=== PATIENT | male | born 1945 | race Caucasian/White ===

== ENCOUNTER 2020-05-14 11:41 | Inpatient (IN) | payer MEDICARE ==
[~2020-05-14] VITALS: Ht 188 cm; Wt 95.7 kg
[2020-05-14 11:45] VITALS: BP 131/74
--- NOTE | 2020-05-14 11:45 | NUR ---
status PT PLACED IN BED WITH BSM ON. PT PLEASANT AT THIS TIME. TWO LAW ENFORCEMENT OFFICERS AT BEDSIDE.
--- NOTE | 2020-05-14 11:54 | ER.PDOC ---
General Chief Complaint: Requesting Medical Care Stated Complaint: MEDICAL CLEARANCE Time seen by MD: 11:47 Source: patient, police, alf records Exam Limitations: clinical condition History of Present Illness Initial Comments Patient arrives from rehab facility where he was recovering from broken hip with report of delusional disorder. He has become very confused during he stay at rehab--so much so that they demanded his stay with him. Furthermore, at night he has become combative and even broke a nurse's finger. 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 He told me on exam that when he showed up for work this morning they told him he needed to go to the doctor to get checked out. He has been accepted to [facility] and requires medical clearance. Timing/Duration: constant, increasing, other (ongoing for weeks) Character of AMS: disoriented, confused, combative, agitated Context: alf resident (has been in a rehab facility s/p hip surgery) Usually: orientedx3 (prior to onset of current sx as above) Decreased Ability to Stand: walks w/o assistance Allergies: Coded Allergies: No Known Drug Allergies (Verified Allergy, Unknown, 05/14/20) Home Meds Reported Medications Docusate Sodium (COLACE) 100 Mg Capsule, 1 CAP PO BID for 30 Days, #60 CAP 0 Refills 05/14/20 Acetaminophen With Codeine (TYLENOL WITH CODEINE #3 TABLET) 1 Each Tablet, 1 EACH PO every 12 hours PRN for PAIN 7 - 10, TAB 05/14/20 Lactulose (LACTULOSE) 10 Gm/15 Ml Solution, 30 MILLILITER PO AM PRN for CONSTIPATION, #900 MILLILITER 0 Refills 05/14/20 Doxazosin Mesylate (DOXAZOSIN MESYLATE) 2 Mg Tablet, 1 MG PO HS, TAB 05/14/20 Atorvastatin 10MG (LIPITOR 10MG) 10 Mg Tablet, 1 TAB PO HS, #90 TAB 1 Refill 05/14/20 Fluoxetine Hcl (FLUOXETINE HCL) 20 Mg Capsule, 1 CAP PO DAILY, #90 CAP 1 Refill 05/14/20 Quetiapine Fumarate (SEROQUEL) 100 Mg Tablet, 1 TAB PO HS, #30 TAB 1 Refill 05/14/20 Doxycycline Hyclate (DOXYCYCLINE HYCLATE) 100 Mg Capsule, 100 MG PO DAILY@0900, CAPSULE 05/14/20 Cholecalciferol (Vitamin D3) (Vitamin D3) 125 Mcg (5000 Unit) Capsule, 5000 TAB- CAP PO DAILY@0900 05/14/20 Ascorbic Acid (VITAMIN C) 500 Mg Capsule.er, 4 CAP PO QD for 30 Days, #30 CAP 0 Refills 05/14/20 Losartan Potassium (LOSARTAN POTASSIUM) 100 Mg Tablet, 1 TAB PO DAILY, #30 TAB 5 Refills 05/14/20 Ubidecarenone (CO Q-10) 200 Mg Capsule, 100 MG PO daily@0900, CAPSULE 05/14/20 Clopidogrel Bisulfate (CLOPIDOGREL) 75 Mg Tablet, 1 TAB PO DAILY, #90 TAB 1 Refill 05/14/20 Aspirin (ASPIR 81) 81 Mg Tablet.dr, 81 MG PO DAILY24 05/14/20 Amlodipine Besylate (AMLODIPINE BESYLATE) 5 Mg Tablet, 5 MG PO DAILY24, TAB 05/14/20 Metoprolol Tartrate 25MG (LOPRESSER 25MG) 25 Mg Tablet, 25 MG PO BID for HYPERTENSION, #60 TAB 05/14/20 Buspirone Hcl (BUSPIRONE HCL) 7.5 Mg Tablet, 7.5 MG PO TID, TAB 05/14/20 Review of Systems Constitutional: no symptoms reported Eyes: no symptoms reported Ears, Nose, Mouth, Throat: no symptoms reported Respiratory: no symptoms reported Cardiovascular: no symptoms reported Gastrointestinal: no symptoms reported Musculoskeletal: no symptoms reported Skin: no symptoms reported Psychiatric/Neurological: see HPI Physical Exam General Appearance: alert, no distress HEENT: no apparent trauma, EOM's intact, no nystagmus, PERRL Cranial Nerves: nml as tested Peripheral Exam: motor nml Neck: supple, non-tender Respiratory: no resp distress, breath sounds nml CVS: reg rate & rhythm, heart sounds nml Abdomen: non-tender Skin: color nml, no rash Results/Orders Results/Orders Orders - ANA FALLON DO Cbc With Auto Diff (05/14/20 11:45) Comprehensive Metabolic Panel (05/14/20 11:45) Urinalysis (05/14/20 11:45) Thyroid Stimulating Horm(Ml) (05/14/20 11:45) Drug Scrn Med W Confirmation (05/14/20 11:45) Vitamin D, 25 Hydroxy (05/14/20 11:45) RPR (05/14/20 11:45) Hemoglobin A1c(Ml) (05/14/20 11:45) Lipid Panel(Ml) (05/14/20 11:45) Troponin I (05/14/20 11:45) Creatine Kinase (05/14/20 11:45) Creatine Kinase Mb (05/14/20 11:45) Probnp B-Type Sample Card Maker (05/14/20 11:45) Alcohol(Ml) (05/14/20 11:45) Acetaminophen(Ml) (05/14/20 11:45) Salicylate(Ml) (05/14/20 11:45) Ekg-Routine (05/14/20 11:45) Ct Head Wo Contrast (05/14/20 11:45) Xr Chest 1v (05/14/20 11:45) Vital Signs Date Time Temp Pulse Resp B/P (MAP) Pulse Ox O2 Delivery O2 Flow Rate FiO2 05/14/20 11:45 98.9 62 16 131/74 (93) 95 Room Air 05/14/20 11:45 98.9 62 20 95 05/14/20 11:45 98.9 62 16 Laboratory Tests Test 05/14/20 12:01 05/14/20 12:15 White Blood Count 7.7 10^3/uL (4.5-11.0) Red Blood Count 4.03 10^6/uL (4.50-5.90) L Hemoglobin 11.9 g/dL (13.9-16.3) L Hematocrit 38.2 % (37.0-53.0) Mean Corpuscular Volume 94.8 fL (78-100) Mean Corpuscular Hemoglobin 29.5 pg (26-34) Mean Corpuscular Hemoglobin Concent 31.2 g/dL (33-36.5) L Red Cell Distribution Width 14.3 % (11.5-14.5) Platelet Count 200 10^3/uL (150-400) Mean Platelet Volume 9.4 fL (7.8-11.0) Neutrophils (%) (Auto) 73.7 % (41.0-85.0) Lymphocytes (%) (Auto) 15.0 % (24.0-44.0) L Monocytes (%) (Auto) 7.7 % (5.0-12.0) Neutrophils # (Auto) 5.6 10^3/uL (1.8-7.7) Lymphocytes # (Auto) 1.15 10^3/uL1 (1.0-4.8) Monocytes # (Auto) 0.6 10^3/uL (0.3-0.8) Absolute Immature Granulocyte (auto 0.01 10^3 u/L (0-2) Absolute Eosinophils (auto) 0.2 10^3/uL (0.0-0.2) Immature Granulocytes % 0.10 % (0.00-0.50) Eosinophils % 2.7 % (0.0-5.0) Basophils % 0.8 % (0.0-0.2) H Basophils # 0.1 10^3/uL (0.0-0.1) Sodium Level 139 mmol/L (132-145) Potassium Level 4.1 mmol/L (3.6-5.2) Chloride Level 103.0 mmol/L (96-109) Carbon Dioxide Level 28.3 mmol/L (20.0-32) Anion Gap 11.8 Blood Urea Nitrogen 23 mg/dL (7-18) H Creatinine 1.01 mg/dL (0.59-1.40) Estimated GFR () 86.7 (>/=60) Est GFR (CKD-EPI)(Non-Afr Iraqi) 71.6 (>/=60) BUN/Creatinine Ratio 22.0 Glucose Level 93 mg/dL (70-110) Hemoglobin A1c 4.7 % (0-5.7) Calcium Level 9.0 mg/dL (8.4-10.5) Total Bilirubin 0.6 mg/dL (0.2-1.0) Aspartate Amino Transferase (AST) 20 U/L (0-35) Alanine Aminotransferase (ALT) 17 U/L (12-78) Alkaline Phosphatase 214 U/L (50-136) H Total Creatine Kinase 58 U/L (39-308) Creatine Kinase MB 1.1 ng/mL (0.5-3.6) Troponin I < 0.02 ng/mL (0.00-0.05) Pro-B-Type Natriuretic Peptide 997 pg/mL (0-450) H Total Protein 6.8 g/dL (6.4-8.2) Albumin 3.4 g/dL (3.4-5.0) Globulin 3.4 Triglycerides Level 44 mg/dL (20-200) Cholesterol Level 76 mg/dL (120-240) L LDL Cholesterol, Calculated 39.2 VLDL Cholesterol, Calculated 8.8 HDL Cholesterol 28 mg/dL (32-96) L Cholesterol Ratio (LDL/HDL) 1.4 Cholesterol/HDL Ratio 2.039002 Thyroid Stimulating Hormone (TSH) 2.245 mIU/mL (0.358-3.740) Salicylates Level < 2.8 mg/dL (2.8-20.0) L Acetaminophen Level < 3 ug/mL (10-30) L Serum Alcohol < 3 mg/dL (0-50) Urine Collection Type VOID Urine Color YELLOW (YELLOW) Urine Appearance SLIGHTLY HAZY (CLEAR) H Urine Bilirubin NEGATIVE MG/DL (NEGATIVE) Urine Ketones NEGATIVE (NEGATIVE) Urine Specific [place] 1.025 (1.005-1.035) Urine pH 5.0 (5.0-6.0) Urine Protein NEGATIVE (NEGATIVE) Urine Urobilinogen NEGATIVE (NEGATIVE) Urine Nitrate NEGATIVE (NEGATAIVE) Urine Leukocyte Esterase NEGATIVE (NEGATIVE) Urine Blood NEGATIVE (NEGATIVE) Urine Glucose NORMAL (NEGATIVE) Urine Opiates Screen NEGATIVE (c/o300ng/mL) Urine Methadone Screen NEGATIVE (c/o300ng/mL) Urine Barbiturates Screen NEGATIVE (c/o200ng/mL) Urine Phencyclidine Screen NEGATIVE (c/o 25ng/mL) Ur Amphetamine/Methamphetamine NEGATIVE (tw4575vk/mL) Urine MDMA Screen (Ecstasy) NEGATIVE (c/o300ng/mL) Urine Benzodiazepines Screen NEGATIVE (c/o200ng/mL) Urine Cocaine Metabolite Screen NEGATIVE (c/o300ng/mL) Ur Tetrahydrocannabinol (THC) Scrn NEGATIVE (c/o 50ng/mL) Progress Progress labs [facility]; EOD papers signed/on chart; patient is medically cleared for psychi atric admission/evaluation EKG/XRAY/CT/US EKG Comments: paced XRAY: chest (no acute process) CT Comments: nothing acute Consult/PCP Time Consult/PCP Called: 13:33 Consult/PCP: Dr. Persaud Reason/Comments: left message #2 Time Consult/PCP Called: 13:57 Consult/PCP: Dr. Persaud Reason/Comments: admit to BHU Departure Time of Disposition: 13:33 Disposition: 09 ADMITTED INPATIENT ( BHU) Impression: Primary Impression: Delusional disorder Condition: Stable Referrals: PCP,UNKNOWN (PCP) PRIMARY CARE PROVIDER Duration or Time Spent with Pa: 15 min ANA FALLON DO May 14, 2020 11:54
--- NOTE | 2020-05-14 11:58 | PCM.EKG ---
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
[2020-05-14 12:08] LABS: BASOPHIL # 0.1 10^3/uL (0.0-0.1); BASOPHIL % 0.8 % (0.0-0.2); EOSINOPHIL # 0.2 10^3/uL (0.0-0.2); EOSINOPHIL % 2.7 % (0.0-5.0); LYMPHOCYTES # 1.15 10^3/uL1 (1.0-4.8); MEAN CORP HGB 29.5 pg (26-34); MONOCYTES # 0.6 10^3/uL (0.3-0.8); MONOCYTES % 7.7 % (5.0-12.0); NEUTROPHIL # 5.6 10^3/uL (1.8-7.7); NEUTROPHILS % 73.7 % (41.0-85.0); PLATELET COUNT 200 10^3/uL (150-400); RED CELL DISTRIBUTION WIDTH 14.3 % (11.5-14.5)
--- NOTE | 2020-05-14 12:30 | NUR ---
STATUS PT EATING LUNCH AT BEDSIDE. OFFICERS AT BEDSIDE.
[2020-05-14 12:34] LABS: APPEARANCE,URINE SLIGHTLY HAZY (CLEAR); BILIRUBIN,URINE NEGATIVE (NEGATIVE); UA COLOR YELLOW (YELLOW); UROBILINOGEN,URINE NEGATIVE (NEGATIVE)
[2020-05-14] MEDS ORDERED: DOCU-123 PO (12:43)
[2020-05-14] MEDS ORDERED: ASCO500C PO (12:43)
[2020-05-14] MEDS ORDERED: ASPI-485 PO (12:43)
[2020-05-14] MEDS ORDERED: UBID200C7 PO (12:43)
[2020-05-14] MEDS ORDERED: METO25TA4 PO (12:43)
[2020-05-14] MEDS ORDERED: CHOL500051 PO (12:43)
[2020-05-14] MEDS ORDERED: AMLO5TAB10 PO (12:43)
[2020-05-14] MEDS ORDERED: CLOP75TA PO (12:43)
[2020-05-14] MEDS ORDERED: BUSP7.5T5 PO (12:43)
[2020-05-14] MEDS ORDERED: ACET-685 PO (12:43)
[2020-05-14] MEDS ORDERED: DOXY100C2 PO (12:43)
[2020-05-14] MEDS ORDERED: QUET100T4 PO (12:43)
[2020-05-14] MEDS ORDERED: LOSA100T14 PO (12:43)
[2020-05-14] MEDS ORDERED: DOXA2TAB2 PO (12:43)
[2020-05-14] MEDS ORDERED: LACT10SO29 PO (12:43)
[2020-05-14] MEDS ORDERED: ATOR10TA PO (12:43)
[2020-05-14] MEDS ORDERED: FLUO20CA23 PO (12:43)
[2020-05-14 12:45] LABS: ALANINE AMINOTRANSFERASE(ML) 17 U/L (12-78); ALKALINE PHOSPHATASE 214 U/L (50-136); ASPARTATE AMINO TRANSFERASE 20 U/L (0-35); CARBON DIOXIDE 28.3 mmol/L (20.0-32); CHOLESTEROL 76 mg/dL (120-240); GLUCOSE 93 mg/dL (70-110); HDL CHOLESTEROL 28 mg/dL (32-96)
--- NOTE | 2020-05-14 12:52 | DIREP ---
PROCEDURE:CHEST 1 VIEW COMPARISON:[facility], CR, XRAY CHEST 2 VWS, 06/05/2019, 01:28 PM. INDICATIONS:admit BHU FINDINGS: LUNGS/PLEURA:Low lung volumes. No infiltrate or pleural effusion. CARDIAC:Prominent cardiac silhouette, dual lead pacer and normal pulmonary vascularity. Aortic arch calcifications. MEDIASTINUM:Normal. BONES:Normal. OTHER:No additional findings. CONCLUSION:No acute cardiopulmonary process or significant change. Dictated by: Roxie Cherry MD on 05/14/2020 at 12:49 PM
--- NOTE | 2020-05-14 13:12 | NUR ---
CT AWAITING CT SCANNER TO BE TERMINALLY CLEANED.
--- NOTE | 2020-05-14 13:30 | DIREP ---
PROCEDURE:CT HEAD OR BRAIN W/O CONTRAST COMPARISON:None. INDICATIONS:mental status change TECHNIQUE:CT images were created without intravenous contrast. FINDINGS: VENTRICLES:The ventricles are normal in size and configuration. CEREBRUM:There is an old right frontal lobe infarct. There are low-density changes in the periventricular white matter. CEREBELLUM:Negative. BRAINSTEM:Negative. BASAL CISTERNS:Negative. HEMORRHAGE:No MASS LESION:No ACUTE INFARCT:No SKULL:Normal. SINUSES:There is a round cyst or polyp in the right maxillary sinus. OTHER:None CONCLUSION: 1. No acute abnormalities. 2. Old right frontal lobe infarct. 3. Microvascular ischemic white matter changes. 4. Cyst or polyp in the right maxillary sinus. Dictated by: Hayden Dave M.D. on 05/14/2020 at 01:26 PM
--- NOTE | 2020-05-14 13:57 | NUR ---
TED FALLON ON PHONE WITH DR JEAN
--- NOTE | 2020-05-14 14:11 | NUR ---
[facility] NOTIFIED [facility] THAT PT IS READY TO TRANSFER UP TO UNIT.
--- NOTE | 2020-05-14 14:25 | NUR ---
ADMISSION: /PATIENT ARRIVED ON THE U POST MEDICAL CLEARANCE IN [facility] ER VIA WHEELCHAIR WITH SECURITY AT SIDE. PATIENT HAS BEEN DELUSIONAL AT THE ASSISTED LIVING. HE HAS BEEN ARRESTING PEOPLE AND BEING AGGRESSIVE AND USING FOUL LANGUAGE. TODAY HE IS CALM AND COOPERATIVE PLEASANT. ON 04/30/20 PATIENT HAD LT ORIF HIP. HE HAS TWO SMALL LATERAL INCISIONS AT KNEE AND ABOVE KNEE. THEY ARE HEALED AND WELL APPROX. PHYSICAL THERAPY IS HERE FOR EVAL OT WILL EVAL AND TREAT.PATIENT HAS A HISTORY OF CAD WITH STENT PLACEMENT, PACEMAKER, HTN, CHF, NONSMOKER AND IS . 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 HE WILL NOT BE RETURNING TO THE ASSISTED LIVING AND REHAB UNIT AND POSSIBLE DISCHARGE TO FAMILY HOME OR [facility]. HE IS CONFUSED AND DISORIENTED. HE IS COOPERATIVE BUT DOESN'T WANT TO LISTEN AND CONTINUES TO STAND UP AND TRY AND WALK ALTHOUGH HE IS UNSTEADY WITH POOR BALANCE. DR. JEAN AND DR. BARTHOLOMEW NOTIFIED OF PATIENT ON UNIT AND NEED FOR ORDERS AND ZYPREXA ZYDIS 10 MG PO PRN GIVEN TO PATIENT FOR RESTLESS BEHAVIOR @ APPROX [id number].
--- NOTE | 2020-05-14 14:27 | NUR ---
ADMIT JENAE FROM [facility] HERE TO TAKE PT TO UNIT VIA W/C. REPORT GIVEN BY VALENTÍN BLAKELY.
[2020-05-14 14:56] VITALS: BP 157/88
[2020-05-14] MEDS ORDERED: ZYPREXA ZYDIS ONE (16:29)
[2020-05-14] MEDS: ZYPREXA ZYDIS SL PRN (16:36)
[2020-05-14] MEDS ORDERED: ASPIRIN EC PO SCH (18:00)
[2020-05-14] MEDS ORDERED: NORVASC PO SCH (18:00)
[2020-05-14] MEDS: TYLENOL #3 PO PRN (19:05)
[2020-05-14 20:00] VITALS: BP 154/83
[2020-05-14] MEDS ORDERED: CARDURA ONE (20:11)
[2020-05-14] MEDS: COLACE PO SCH (20:26)
[2020-05-14] MEDS: LIPITOR PO SCH (20:26)
[2020-05-14] MEDS: BUSPAR PO SCH (20:26)
[2020-05-14] MEDS: LOPRESSER PO SCH (20:28)
[2020-05-14] MEDS: CARDURA PO SCH (20:28)
[2020-05-14] MEDS ORDERED: SEROQUEL PO SCH (21:00)
--- NOTE | 2020-05-15 01:43 | NUR ---
PIRP: P- ALTERED THOUGHT PROCESS AND DANGER TO OTHERS I- PROVIDE SAFE AND SUPPORTIVE ENVIRONMENT, PROVIDE 1:1 INTERVENTION ALLOWING PATIENT TO EXPRESS FEELINGS/THOUGHTS, PROVIDE MEDICATION ORDERED, GIVE CLEAR AND SIMPLE INSTRUCTIONS, PROVIDE REALITY ORIENTATION NEEDED R- PATIENT IS VERY PLEASANT AND COOPERATIVE AT TIMES. PATIENT IS ALERT AND ORIENTED TO SELF. PT IS VERY SOCIABLE AND LOVES TO REMINISCE AND CRACK JOKES. PT IS SEATED IN WHEELCHAIR AND IS RESTLESS AND FREQUENTLY ATTEMPTING TO GET OUT OF WHEELCHAIR AND STAND UP BY HIMSELF. PT HAS BEEN MADE A 1:1 AND NEEDS TO BE RE-ORIENTED AND RE-DIRECTED CONSISTENTLY. PT DENIES DEPRESSION AND ANXIETY BUT REPORTS I USED TO BE VERY ANXIOUS BEFORE. PT THINKS HE IS IN [place] AND NOTED TO BE EXPERIENCING DELUSIONS AND HALLUCINATIONS. PER PT REPORT GO GET ME THAT MOUSE OVER THERE! PT DENIES SI/HI. PT SAT IN DAY ROOM AND ATE EVENING SNACK OF FRUIT CUP AND SODA AFTER PROMPTING. PT PARTICIPATED IN GROUPS ACTIVITY AND REPORTED THAT HE USED TO PLAY BASEBALL AND SOME BASKETBALL A LONG TIME AGO BUT HE WAS NOT VERY GOOD AT BASKETBALL. PT TOOK ALL MEDICATIONS ORDERED. PT SOMETIMES UNABLE TO ANSWER QUESTIONS ASKED AND GOES ON HIS OWN TANGENT AND RAMBLES ON ABOUT DIFFERENT THINGS ALTOGETHER. P- WILL CONTINUE WITH CURRENT TREATMENT PLAN
[2020-05-15] MEDS ORDERED: NORVASC PO SCH (09:00)
[2020-05-15 09:22] VITALS: BP 153/78
--- NOTE | 2020-05-15 10:09 | NUR ---
TELEMED PT WAS SEEN BY DR. JONES VIA TELEMEDICINE. RECEIVED ORDERS TO DC SEROQUEL AND START ZYPREXA AT HS, SEE EMR.
--- NOTE | 2020-05-15 10:12 | PCM.HP ---
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 Pt was previously living with , reportedly these behaviors are new; he was having falls at home, which led to hip fracture, which is why he was at rehab facility. Per nursing, since his arrival on the U, he has been sexually inappropriate toward female staff -- mainly inappropriate comments, but did try to kiss staff. Pt slept 9 hrs overnight. Patient seen at bedside, he is laying down, puts his hands on his head with elbows forward obscuring his face -- when asked why he was doing this, patient stated "to hold my head up." He is a poor historian, responds inappropriately to most of my questions. He states he doesn't remember anything that he reportedly did at the rehab facility. He is disoriented to place, time, situation. When asked why he is on the U in [place], he states "because my mother and grandmother are in rehab." He denies feeling depressed, no SI/HI. 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 Review of Systems Other MSE: Gen: Alert, disoriented to place, time, situation, appears stated age, dressed in hospital gown, fair hygiene, poor eye contact Speech: normal rate/volume Mood: "okay" Affect: incongruent, patient laughing to himself Intelligence: unable to ascertain TC: denies SI/HI, reported delusions of 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 a 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 TP: coherent Insight: poor Judgement: poor Allergies: Coded Allergies: No Known Drug Allergies (Verified Allergy, Unknown, 05/14/20) Scheduled Amlodipine Besylate (Amlodipine Besylate), 5 MG PO DAILY24, (Reported) Ascorbic Acid (Vitamin C), 4 CAP PO QD, (Reported) Aspirin (Aspir 81), 81 MG PO DAILY24, (Reported) Atorvastatin 10MG (Lipitor 10MG), 1 TAB PO HS, (Reported) Buspirone Hcl (Buspirone Hcl), 7.5 MG PO TID, (Reported) Cholecalciferol (Vitamin D3) (Vitamin D3), 5,000 TAB-CAP PO DAILY@0900, (Reported) Clopidogrel Bisulfate (Clopidogrel), 1 TAB PO DAILY, (Reported) Docusate Sodium (Colace), 1 CAP PO BID, (Reported) Doxazosin Mesylate (Doxazosin Mesylate), 1 MG PO HS, (Reported) Doxycycline Hyclate (Doxycycline Hyclate), 100 MG PO DAILY@0900, (Reported) Fluoxetine Hcl (Fluoxetine Hcl), 1 CAP PO DAILY, (Reported) Losartan Potassium (Losartan Potassium), 1 TAB PO DAILY, (Reported) Metoprolol Tartrate 25MG (Lopresser 25MG), 25 MG PO BID, (Reported) Quetiapine Fumarate (Seroquel), 1 TAB PO HS, (Reported) Ubidecarenone (Co Q-10), 100 MG PO daily@0900, (Reported) Scheduled PRN Acetaminophen With Codeine (Tylenol With Codeine #3 Tablet), 1 EACH PO every 12 hours PRN for PAIN 7 - 10, (Reported) Lactulose (Lactulose), 30 MILLILITER PO AM PRN for CONSTIPATION, (Reported) VTE VTE Risk Total Score: >5 VTE Risk Score VTE Risk: Score 0-1 = Low Risk (Aggressive mobilization; early ambulation; no VTE prophylaxis required) Score 2: Moderate Risk (Intermittent/Pneumatic Compression Device OR Lovenox/Heparin/Coumadin) Score 3-4: High Risk (Intermittent/Pneumatic Compression Device AND Lovenox/Heparin/Coumadin) Score > or =5: Highest Risk (Intermittent/Pneumatic Compression Device AND Lovenox/Heparin/Coumadin) VTE VTE Present on Admission: No Currently receiving anticoagul: Yes VTE Risk Total Score: >5 Exam Vital Signs Vital Signs Date Time Temp Pulse Resp B/P (MAP) Pulse Ox O2 Delivery O2 Flow Rate FiO2 05/15/20 09:22 97.5 61 18 153/78 (103) 95 Room Air General Appearance: Alert, No acute distress HEENT: Atraumatic Psych/Mental Status: Other (see above MSE) Assessment/Plan Assessment/Plan Assessment/Plan 75 yo M, transferred to [facility] for aggression and delusion that he is 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 Patient is a poor historian, minimally cooperative with interview. Collateral information will be helpful in refining his diagnosis. Differential would include a delusional di sorder, dementia, possible delirium. Will continue to monitor and treat empirically. [place] I: Delusional Disorder [place] III: Dementia Plan 1) Continue Prozac 20mg PO daily for mood 2) Continue Buspar 7.5mg PO TID for anxiety 3) D/C Seroquel 4) Start Zyprexa Zydis 10mg SL QHS for psychosis 5) Continue Zyprexa Zydis 10mg SL/IM Q6hrs PRN psychosis/agitation 6) 1:1 for safety -- aggression, falls 7) Appreciate hospitalist assistance with medical issues MALLIKA JONES MD May 15, 2020 10:12
[2020-05-15] MEDS: VIBRAMYCIN PO SCH (10:13)
[2020-05-15] MEDS: LOPRESSER PO SCH ×2 (10:14→20:08)
[2020-05-15] MEDS: ASPIRIN EC PO SCH (10:14)
[2020-05-15] MEDS: PROZAC PO SCH (10:14)
[2020-05-15] MEDS: COLACE PO SCH ×2 (10:15→20:07)
[2020-05-15] MEDS: VITAMIN C PO SCH (10:15)
[2020-05-15] MEDS: BUSPAR PO SCH ×3 (10:15→20:07)
[2020-05-15] MEDS: VITAMIN D PO SCH (10:15)
[2020-05-15] MEDS: PLAVIX PO SCH (10:15)
[2020-05-15] MEDS: COZAAR PO SCH (10:15)
--- NOTE | 2020-05-15 16:09 | NUR ---
GMAS: PT UNABLE TO COGNITIVELY PARTICIPATE IN ASSESSMENT. PT IS INVOLUNTARY AND ON COURT PAPERS. Addendum: 05/15/20 at 1621 by Kiesha Lopez LMSW SW Amended: Links added.
--- NOTE | 2020-05-15 16:14 | NUR ---
MMSE SCORE 2: FINDINGS INDICATE PT HAS SEVERE IMPAIRMENT. PT WAS UNABLE TO COGNITIVELY PARTICIPATE AND WAS ONLY ORIENTED TO SELF. Addendum: 05/15/20 at 1621 by Kiesha Lopez LMSW SW Amended: Links added.
--- NOTE | 2020-05-15 16:20 | NUR ---
BIOPSYCHOSOCIAL: SW UNABLE TO COMPLETE ENTIRE ASSESSMENT DUE TO PT'S COGNITIVE DECLINE, BUT DID GET A LOT OF THE INFORMATION NEEDED FROM INQUIRY AND PREVIOUS RECORDS. Addendum: 05/15/20 at 1621 by Kiesha MORENO Amended: Links added.
--- NOTE | 2020-05-15 17:06 | PRM.CONS ---
Consultation Reason for Consult: Reason for Consultation: For medical management. History of Present Illness Current and Past HX: (1) Rosacea ICD Code: L71.9 - Rosacea, unspecified SNOMED: 585044970 (2) Dyslipidemia ICD Code: E78.5 - Hyperlipidemia, unspecified SNOMED: 741422267 (3) Coronary artery disease ICD Code: I25.10 - Atherosclerotic heart disease of [place] coronary artery without angina pectoris SNOMED: 09174672 (4) Essential hypertension ICD Code: I10 - Essential (primary) hypertension SNOMED: 60989740 (5) Delusional disorder Status: Acute ICD Code: F22 - Delusional disorders SNOMED: 26143289 Social and Family History: (1) longterm resident ICD Code: Z59.3 - Problems related to living in residential institution SNOMED: 824325680 (2) History of hip surgery ICD Code: Z98.890 - Other specified postprocedural states SNOMED: 349366143 Review of Systems Constitutional: No: Fever, Chills, Sweats, Weakness, Malaise, Other Eyes: No: Pain, Vision change, Conjunctivae inflammation, Eyelid inflammation, Other, Redness ENT: No: Ear pain, Ear discharge, Nose pain, Nose discharge, Nose congestion, Mouth pain, Mouth swelling, Throat pain, Throat swelling, Other Respiratory: No: Cough, Dry, Shortness of breath, SOB with excertion, Wheezing, Hemoptysis, Pleuritic Pain, Sputum, Wheezing, Other Cardiovascular: No: Chest Pain, Palpitations, Orthopnea, Paroxysmal Noc. Dyspnea, Edema, Lt Headedness, Other Gastrointestinal: No: Nausea, Vomiting, Abdominal Pain, Diarrhea, Constipation, Melena, Hematochezia, Other Genitourinary: No Dysuria, No Frequency, No Incontinence, No Hematuria, No Retention, No Other Musculoskeletal: No: other, neck pain, shoulder pain, arm pain, back pain, hand pain, leg pain, foot pain Skin: No: Rash, Lesions, Jaundice, Bruising, Other Neurological: No: Weakness, Numbness, Incoordination, Change in speech, Confusion, Seizures, Other Other Patient is confused and has been having episodes of agitation Allergies: Coded Allergies: No Known Drug Allergies (Verified Allergy, Unknown, 05/14/20) Scheduled Amlodipine Besylate (Amlodipine Besylate), 5 MG PO DAILY24, (Reported) Ascorbic Acid (Vitamin C), 4 CAP PO QD, (Reported) Aspirin (Aspir 81), 81 MG PO DAILY24, (Reported) Atorvastatin 10MG (Lipitor 10MG), 1 TAB PO HS, (Reported) Buspirone Hcl (Buspirone Hcl), 7.5 MG PO TID, (Reported) Cholecalciferol (Vitamin D3) (Vitamin D3), 5,000 TAB-CAP PO DAILY@0900, (Reported) Clopidogrel Bisulfate (Clopidogrel), 1 TAB PO DAILY, (Reported) Docusate Sodium (Colace), 1 CAP PO BID, (Reported) Doxazosin Mesylate (Doxazosin Mesylate), 1 MG PO HS, (Reported) Doxycycline Hyclate (Doxycycline Hyclate), 100 MG PO DAILY@0900, (Reported) Fluoxetine Hcl (Fluoxetine Hcl), 1 CAP PO DAILY, (Reported) Losartan Potassium (Losartan Potassium), 1 TAB PO DAILY, (Reported) Metoprolol Tartrate 25MG (Lopresser 25MG), 25 MG PO BID, (Reported) Quetiapine Fumarate (Seroquel), 1 TAB PO HS, (Reported) Ubidecarenone (Co Q-10), 100 MG PO daily@0900, (Reported) Scheduled PRN Acetaminophen With Codeine (Tylenol With Codeine #3 Tablet), 1 EACH PO every 12 hours PRN for PAIN 7 - 10, (Reported) Lactulose (Lactulose), 30 MILLILITER PO AM PRN for CONSTIPATION, (Reported) VTE VTE Risk Total Score: >5 VTE Risk Score VTE Risk: Score 0-1 = Low Risk (Aggressive mobilization; early ambulation; no VTE prophylaxis required) Score 2: Moderate Risk (Intermittent/Pneumatic Compression Device OR Lovenox/Heparin/Coumadin) Score 3-4: High Risk (Intermittent/Pneumatic Compression Device AND Lovenox/Heparin/Coumadin) Score > or =5: Highest Risk (Intermittent/Pneumatic Compression Device AND Lovenox/Heparin/Coumadin) Reasons not ordering prophylax: Bld coag d/t liver dz Assessment/Plan Assessment/Plan Assessment/Plan 1) Continue Prozac 20mg PO daily for mood 2) Continue Buspar 7.5mg PO TID for anxiety 3) D/C Seroquel 4) Start Zyprexa Zydis 10mg SL QHS for psychosis 5) Continue Zyprexa Zydis 10mg SL/IM Q6hrs PRN psychosis/agitation 6) 1:1 for safety -- aggression, falls 7) Appreciate hospitalist assistance with medical issues Problems: (1) Essential hypertension Assessment & Plan: Currently patient has elevated blood pressure. Continue Cozaar 100 mg orally once a day. Continue Lopressor 25 mg orally twice a day. Increase amlodipine to 10 mg once a day. Monitor blood pressure closely. ICD Code: I10 - Essential (primary) hypertension SNOMED: 53547678 (2) Coronary artery disease Assessment & Plan: Currently patient is asymptomatic. Continue aspirin, Plavix, Lipitor and Lopressor along with Cozaar. ICD Code: I25.10 - Atherosclerotic heart disease of [place] coronary artery without angina pectoris SNOMED: 82094557 (3) Dyslipidemia Assessment & Plan: Continue Lipitor 10 mg orally once a day ICD Code: E78.5 - Hyperlipidemia, unspecified SNOMED: 254200298 (4) Rosacea Assessment & Plan: Complete the course of oral doxycycline 100 mg orally twice a day by 20 May 2020. ICD Code: L71.9 - Rosacea, unspecified SNOMED: 375958360 (5) Delusional disorder Status: Acute Assessment & Plan: Continue the patient on BuSpar along with Prozac. Continue to follow psychiatry recommendations ICD Code: F22 - Delusional disorders SNOMED: 94767038 Plan 1) Continue Prozac 20mg PO daily for mood 2) Continue Buspar 7.5mg PO TID for anxiety 3) D/C Seroquel 4) Start Zyprexa Zydis 10mg SL QHS for psychosis 5) Continue Zyprexa Zydis 10mg SL/IM Q6hrs PRN psychosis/agitation 6) 1:1 for safety -- aggression, falls 7) Appreciate hospitalist assistance with medical issues TOMER BARTHOLOMEW MD May 15, 2020 17:06
--- NOTE | 2020-05-15 17:20 | NUR ---
PIRP P: DTO, ALTERED THOUGHT PROCESS I: ASSESS FOR PSYCHOTIC SYMPTOMS, ASSIST WITH DIFFERENTIATING BETWEEN INTERNAL AND EXTERNAL REALITY, GIVE CLEAR AND SIMPLE INSTRUCTIONS, PROVIDE TASK-ORIENTED ACTIVITIES, 1:1 OBSERVATION, PROVIDE 1:1 TO ENCOURAGE EXPRESSION OF FEELINGS, REDIRECT WITH VERBALIZATION, ALTERNATE REST/ACTIVITY, PROVIDE MEDICATION EDUCATION, GIVE MEDICATIONS ORDERED, ESTABLISH TOILETING SCHEDULE, TEACH/REINFORCE FALL PREVENTION TECHNIQUES, RE-ORIENT TO SURROUNDINGS NEEDED R: PT HAS CALM, PLEASANT AFFECT THROUGHOUT SHIFT. HAS NOT EXHIBITED THREATENING OR COMBATIVE BEHAVIORS. ALERT AND ORIENTED TO SELF, ABLE TO ANSWER CLOSE-ENDED QUESTIONS APPROPRIATELY. DENIES FEELINGS OF DEPRESSION, ANXIETY, SI/HI. PT HAS BEEN NOTED TO SPORADICALLY POINT/LOOK AT THINGS NOT THERE, IS ABLE TO BE REDIRECTED WITH VERBALIZATION. HAS TAKEN MEDICATIONS ORDERED, PARTICIPATES IN GROUP ACTIVITIES WITH PROMPTING AND SIMPLE INSTRUCTION. COOPERATIVE WITH PHYSICAL THERAPY AND TOILETING. REQUIRES FREQUENT EDUCATION REGARDING PROPER USE OF WALKER FOR FALL PREVENTION. P: RE-ORIENT TO SURROUNDINGS NEEDED, ENCOURAGE SOCIAL INTERACTION
[2020-05-15 19:27] VITALS: BP 120/91
[2020-05-15] MEDS ORDERED: CARDURA ONE (20:01)
[2020-05-15] MEDS: LIPITOR PO SCH (20:08)
[2020-05-15] MEDS: TYLENOL #3 PO PRN (20:09)
[2020-05-15] MEDS: CARDURA PO SCH (20:09)
[2020-05-15] MEDS: ZYPREXA ZYDIS SL SCH (20:10)
--- NOTE | 2020-05-16 05:20 | NUR ---
P.I.R.P. P. DTO/ALTERED THOUGHT PROCESS. I. PROVIDE 1:1 OBSERVATION DUE TO HIGH POTENTIAL FOR FALLS AND DTO ON ADMIT. EVERY 15 MINUTE DOCUMENTATION. PROVIDE AND ADMINISTER MEDICATIONS ORDERED PER MD.PROVIDE TASK ORIENTED GROUP AND ENCOURAGE GROUP ACTIVITY. MONITOR FOR CHANGES IN BEHAVIORS AND COGNITIVE STATUS. PROVIDE 1:1 INTERACTION TO ALLOW PATIENT TO EXPRESS FEELINGS AND CONCERNS. RE DIRECT AND RE ORIENT NEEDED. R. 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 ALLOWED PATIENT TO EXPRESS FEELINGS. PATIENT HAS BEEN PLEASANT, VOICED 1 X HE NEEDED TO USE RESTROOM BUT DID NOT WANT ANYONE IN THE ROOM WITH HIM BUT PATIENT IS UNABLE TO GET OUT OF BED WITHOUT ASSIST AND WOULD NOT ALLOW NURSING TO ASSIST HIM SO HE LAY BACK IN BED. REDIRECTED AND RE ORIENTED NEEDED. REQUIRED TIMELY EDUCATION AND DISCOVERING THAT PATIENT PREFERENCE TO TAKE MEDS 1 TO 2 AT A TIME OPPOSED TO HAVING ALL MEDS IN A CUP OR HIS HAND AT ONE TIME. PATIENT WITH HALLUCINATIONS MORE VISUAL, WOULD PAT THE BED AND LOOK AT FLOOR AND VOICE "COME ON" DID APPEAR ANXIOUS AT TIMES BUT DENIED ANXIETY OR DEPRESSION, IS ALERT, ORIENTED TO PERSON AND YEAR. P. CONTINUE CURRENT PLAN OF CARE
[2020-05-16 07:27] VITALS: BP 171/67
--- NOTE | 2020-05-16 08:40 | NUR ---
PT PHYSICAL THERAPY WITH PATIENT AT THIS TIME. NO DISTRESS NOTED.
--- NOTE | 2020-05-16 08:52 | NUR ---
TELEMED PT WAS SEEN BY DR. JONES VIA TELEMEDICINE. NO NEW ORDERS RECEIVED AT THIS TIME.
[2020-05-16] MEDS: VIBRAMYCIN PO SCH (08:55)
[2020-05-16] MEDS: LOPRESSER PO SCH ×2 (08:56→22:29)
[2020-05-16] MEDS: PROZAC PO SCH (08:56)
[2020-05-16] MEDS: ASPIRIN EC PO SCH (08:56)
[2020-05-16] MEDS: BUSPAR PO SCH ×3 (08:56→22:28)
[2020-05-16] MEDS: VITAMIN D PO SCH (08:56)
[2020-05-16] MEDS: VITAMIN C PO SCH (08:56)
[2020-05-16] MEDS: PLAVIX PO SCH (08:56)
[2020-05-16] MEDS: NORVASC PO SCH (08:56)
[2020-05-16] MEDS: COLACE PO SCH ×2 (08:56→22:29)
[2020-05-16] MEDS: TYLENOL #3 PO PRN (08:57)
[2020-05-16] MEDS: COZAAR PO SCH (08:57)
--- NOTE | 2020-05-16 09:05 | PRM.PN ---
Mood: "i feel good today Sleep: 7.25hrs Appetite: pretty good Suidical thoughts: denies Homicidal thoughts: denies Recent stressors: "when am I going home" Family support: Aggressive Behavior: denies Ability to Perform ADL'sc: with staff assistance Psychotic sympstoms: denies Manic Symptoms: denies Living situation: was at rehab for PT Illicit Drug usec: denies Alcoholo use: denies Tobacco use: denies Anxity Symptoms: "my was supposed to come in but didn't make it" Anger/Irritablility: Denies Appearance: Well groomed/hygience, Normal weight, Appears age stated Attitude & Behaviour: Cooperative/Pleasant Mood & Affect: Euthymic/appr/congruent, Constricted Orientation: Disoriented to situation Attention/Concentration: Fair attention, Fair concentration Speech: Reg rate/vol/rhyth/prosod Judgement/Insight: Fair judgement, Fair insight Thought Process: Tangential Language: Czech Thought content/Abnormal/Psych: None/normal Fund of Knowledge: WNL Associations: WNL/Normal Associations Memory (recent and remote): Gross int/not form assess Constitutional: None Neurological: None Psychiatric: None [place] I: Delusional Disorder, Delirium Assessment/Plan Assessment/Plan Assessment/Plan Nursing: Slept 7.25hrs Has been doing better, not sexually inappropriate, not combative, more perked up Still needs close monitoring 2/2 fall risk Patient: Patient is alert, oriented to person, place, and year. Patient is much more interactive today than yesterday -- seems more organized, answering questions more appropriately, though has occasional detractions. He reports a good mood, no SI/HI. Some anxiety about not making it in to see him yesterday, but hopes to see her today. 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 Patient is showing improvement with treatment, he is more organized, more interactive/conversive than before. Given collateral information from daughter that patient was fairly independent prior to his hip surgery, would consider his episode to be part of a delirium which manifested with aggression and delusions. Plan 1) Continue Prozac 20mg PO daily for mood 2) Continue Buspar 7.5mg PO TID for anxiety 3) Continue Zyprexa Zydis 10mg SL QHS for psychosis 4) Continue Zyprexa Zydis 10mg SL/IM Q6hrs PRN psychosis/agitation 5) 1:1 for safety -- fall risk 6) Appreciate hospitalist assistance with medical issues MALLIKA JONES MD May 16, 2020 09:05
[2020-05-16 16:34] VITALS: BP 158/91
--- NOTE | 2020-05-16 16:43 | NUR ---
PIRP P: ALTERED THOUGHT PROCESS I: ASSESS FOR PSYCHOTIC SYMPTOMS, ASSIST WITH DIFFERENTIATING BETWEEN INTERNAL AND EXTERNAL REALITY, ASSESS REASONS FOR TEARFULNESS, GIVE CLEAR AND SIMPLE INSTRUCTIONS, PROVIDE TASK-ORIENTED ACTIVITIES, 1:1 OBSERVATION, MONITOR FOR CHANGES IN USUAL BEHAVIOR, PROVIDE 1:1 TO ENCOURAGE EXPRESSION OF FEELINGS, REDIRECT WITH VERBALIZATION, ALTERNATE REST/ACTIVITY, GIVE MEDICATIONS ORDERED, REINFORCE FALL PREVENTION TECHNIQUES, RE-ORIENT TO SURROUNDINGS NEEDED, REINFORCE EDUCATION REGARDING APPROPRIATE USE OF EQUIPMENT, ENCOURAGE PARTICIPATION IN OWN SELF-CARE R: PT HAS PLEASANT, COOPERATIVE AFFECT THROUGHOUT SHIFT. DENIES FEELINGS OF DEPRESSION/ANXIETY, BUT HAS BEEN NOTED TO BECOME TEARFUL WHEN TALKING ABOUT MOTHER, WHOM HE BELIEVES IS IN THE HOSPITAL FOR PROBLEMS WITH HER KNEE. PT HAS ALSO BEEN OBSERVED POINTING TO THINGS NOT THERE, HAS VOICED SEEING AN ALLIGATOR WHEN IN THE SHOWER, AND EXHIBITS VARYING DELUSIONS R/T CONFUSION. PT HAS BEEN ABLE TO BE REDIRECTED WITH VERBALIZATION, HAS NOT EXHIBITED THREATENING OR COMBATIVE BEHAVIORS. PT HAS TAKEN MEDICATIONS ORDERED AND HAS BEEN COOPERATIVE WITH ADLS, REQUIRED MULTIPLE ATTEMPTS/PROMPTING FOR SHOWER. P: RE-ORIENT TO REALITY/SURROUNDINGS NEEDED, DECREASE EXTERNAL STIMULI
[2020-05-16 20:25] VITALS: BP 123/75
[2020-05-16] MEDS: LIPITOR PO SCH (22:28)
[2020-05-16] MEDS: ZYPREXA ZYDIS SL SCH (22:28)
[2020-05-16] MEDS: CARDURA PO SCH (22:29)
--- NOTE | 2020-05-17 06:20 | NUR ---
.I.R.P. P. DTO/ALTERED THOUGHT PROCESS. I. PROVIDE 1:1 OBSERVATION DUE TO HIGH POTENTIAL FOR FALLS AND DTO ON ADMIT. EVERY 15 MINUTE DOCUMENTATION. PROVIDE AND ADMINISTER MEDICATIONS ORDERED PER MD.PROVIDE TASK ORIENTED GROUP AND ENCOURAGE GROUP ACTIVITY. MONITOR FOR CHANGES IN BEHAVIORS AND COGNITIVE STATUS. PROVIDE 1:1 INTERACTION TO ALLOW PATIENT TO EXPRESS FEELINGS AND CONCERNS. RE DIRECT AND RE ORIENT NEEDED. R. PATIENT HAS HAD NO BEHAVIORS OF DANGER TO OTHERS THIS SHIFT, ATTEMPTED GROUP, RAMBLES, CHANGES SUBJECTS FREQUENTLY, LOSE ASSOCIATIONS, CONTINUES TO TALK ABOUT HOW MUCH HE LOVES THE KIDS AND HELPING THE KIDS, REVERTS TO TALKING OF WORK. PATIENT WAS TEARFUL AT TIMES, TALKED OF GOD AND PRAYER AND WOULD BE TEARFUL. ACTIVE LISTENING WITH PATIENT. PATIENT HAS BEEN PLEASANT, REDIRECTED AND RE ORIENTED NEEDED. REQUIRED TIMELY EDUCATION WHEN TAKING HS MEDS. PATIENT WITH VISUAL HALLUCINATIONS, PETTING SOMETHING AND TALKING TO A DOG. PATIENT DENIES ANXIETY ALTHOUGH APPEARS ANXIOUS AT TIMES, DENIES DEPRESSION , IS ALERT, ORIENTED TO PERSON AND MONTH. PATIENT HAS SLEPT 6.5 HOURS THIS SHIFT. P. CONTINUE CURRENT PLAN OF CARE
[2020-05-17 08:02] VITALS: BP 148/84
--- NOTE | 2020-05-17 08:11 | NUR ---
Report Assumed care of patient after report received from Asya RN at shift change. Patient 1:1 with orientee Danielle WAGNER at the bedside. Awake and alert, rambling, emotional. Patient was weeping, reassured by nursing. Patient stated his distress over a "sexual encounter" with "Funmi." Reoriented and redirected.
[2020-05-17] MEDS: VITAMIN C PO SCH (09:49)
[2020-05-17] MEDS: ASPIRIN EC PO SCH (09:50)
[2020-05-17] MEDS: TYLENOL #3 PO PRN (09:50)
[2020-05-17] MEDS: COLACE PO SCH ×3 (09:50→21:00)
[2020-05-17] MEDS: COZAAR PO SCH (09:50)
[2020-05-17] MEDS: VITAMIN D PO SCH (09:50)
[2020-05-17] MEDS: BUSPAR PO SCH ×4 (09:50→21:00)
[2020-05-17] MEDS: PLAVIX PO SCH (09:50)
[2020-05-17] MEDS: PROZAC PO SCH (09:51)
[2020-05-17] MEDS: VIBRAMYCIN PO SCH (09:51)
[2020-05-17] MEDS: LOPRESSER PO SCH ×3 (09:51→21:00)
[2020-05-17] MEDS: NORVASC PO SCH (09:51)
--- NOTE | 2020-05-17 11:30 | NUR ---
Asst Riggins, CAN CUTTER with treatment for patient safety. Signed: 05/17/20 at 1130 by Nancy Lou, CAN CUTTER PT Addendum: 05/17/20 at 1130 by Nancy Lou CAN CUTTER PT Amended: Links added.
--- NOTE | 2020-05-17 13:10 | DIET.OP ---
Nutrition Asmt/Malnutrit 2-17 Nutritional Screening: Other (U admit) Pertinent Medical Hx/Surgical: HTN, CAD Current Diet Order/Nutrition S: Regular Patient /S.O: Not Indicated Pertinent Meds Current Medications Medications (Trade) Dose Ordered Sig/Power PRN Reason Start Time Stop Time Status Last Admin Acetaminophen/ Codeine Phosphate (Tylenol #3) 1 each BID PRN PAIN 7 - 10 05/14/20 18:00 06/13/20 17:59 05/17/20 09:50 Amlodipine Besylate (Norvasc) 10 mg DAILY@0900 05/16/20 09:00 06/15/20 08:59 05/17/20 09:51 Ascorbic Acid (Vitamin C) 500 mg DAILY 05/15/20 09:00 06/14/20 08:59 05/17/20 09:49 Aspirin (Aspirin Ec) 81 mg DAILY@0900 05/15/20 09:00 06/13/20 17:59 05/17/20 09:50 Atorvastatin Calcium (Lipitor) 10 mg HS 05/14/20 21:00 06/13/20 20:59 05/16/20 22:28 Buspirone HCl (Buspar) 7.5 mg TID 05/14/20 21:00 06/13/20 20:59 05/17/20 09:50 Cholecalciferol (Vitamin D) 5,000 unit DAILY@0900 05/15/20 09:00 06/14/20 08:59 05/17/20 09:50 Clopidogrel Bisulfate (Plavix) 75 mg DAILY 05/15/20 09:00 06/14/20 08:59 05/17/20 09:50 Docusate Sodium (Colace) 100 mg BID 05/14/20 21:00 06/13/20 20:59 05/17/20 09:50 Doxazosin Mesylate (Cardura) 1 mg HS 05/14/20 21:00 06/13/20 20:59 05/15/20 20:09 Doxycycline Hyclate (Vibramycin) 100 mg DAILY@0900 05/15/20 09:00 06/14/20 08:59 05/17/20 09:51 Fluoxetine HCl (Prozac) 20 mg DAILY 05/15/20 09:00 06/14/20 08:59 05/17/20 09:51 Lactulose (Cephulac) 30 gm DAILY PRN CONSTIPATION 05/15/20 09:00 06/14/20 08:59 Losartan Potassium (Cozaar) 100 mg DAILY 05/15/20 09:00 06/14/20 08:59 05/17/20 09:50 Metoprolol Tartrate (Lopresser) 25 mg BID 05/14/20 21:00 06/13/20 20:59 05/17/20 09:51 Olanzapine (Zyprexa Zydis) 10 mg HS 05/15/20 21:00 06/14/20 20:59 05/16/20 22:28 Olanzapine (Zyprexa Zydis) 10 mg Q6HR PRN AGITATION and restlessness 05/14/20 17:00 06/13/20 16:59 05/14/20 16:36 Olanzapine (Zyprexa) 10 mg Q6 PRN AGITATIONAND RESTLESSNESS 05/14/20 18:30 06/13/20 18:29 Height (Feet): 5 Height (Inches): 10 Current Weight: 211 Weight Status: Appropriate (height is incorrect in system) GI Symptoms: None Cultural/Ethnic/Church [place]: none pertinent Usual Diet at Home: Regular Current %PO: Good(75-100%) BEE in Kcals: Use Current Weight Calories/Kcals/Kg: MSJ 1-1.4 Kcals Calculated: 0281-1935 Protein: Use Current Weight Protein g/k-35% kcals Protein Calculated: 42-207 Fluid: ml: 1 ml/kcal Nutritional Problem: No Cur. Nutritional Probl Malnutrtion/Nutrition Risk Edu: TONY Sultana May 17, 2020 13:10
[2020-05-17] MEDS: ZYPREXA ZYDIS SL PRN (14:49)
--- NOTE | 2020-05-17 15:14 | NUR ---
ZYPREXA PT IS VERY RESTLESS. WANTING TO GO SERVE WARRANTS. WANTING TO GO GET THE CAR AND GET OUT OF HERE SO HE CAN GET GOING. STAFF HAS ATTEMPTED TO REORIENT PT TO WHERE HE IS BUT UNSUCCESSFUL. PT THINKS HE IS IN [facility]. THINKS EVERYONE IS IN [facility] IN [facility]. DOES NOT BELIEVE THAT WE ARE NURSES HELPING HIM IN THE HOSPITAL. ZYPREXA 10MG SL GIVEN TO PT. ALL NURSES ATTEMPTED TO GET PT TO MED. RN WAS ABLE TO GET PT TO TAKE.
--- NOTE | 2020-05-17 15:30 | NUR ---
PIRP P: ALTERED THOUGHT PROCESS I: ASSESS FOR PSYCHOTIC SYMPTOMS, ASSIST WITH DIFFERENTIATING BETWEEN INTERNAL AND EXTERNAL REALITY, ASSESS REASONS FOR TEARFULNESS, GIVE CLEAR AND SIMPLE INSTRUCTIONS, PROVIDE TASK-ORIENTED ACTIVITIES, 1:1 OBSERVATION, MONITOR FOR CHANGES IN USUAL BEHAVIOR, PROVIDE 1:1 TO ENCOURAGE EXPRESSION OF FEELINGS, REDIRECT WITH VERBALIZATION, ALTERNATE REST/ACTIVITY, GIVE MEDICATIONS ORDERED, REINFORCE FALL PREVENTION TECHNIQUES, RE-ORIENT TO SURROUNDINGS NEEDED, REINFORCE EDUCATION FOR APPROPRIATE USE OF EQUIPMENT, ENCOURAGE PARTICIPATION IN OWN SELF-CARE R: PT HAS VERY CONFUSED AND RESTLESS THIS SHIFT. DENIES FEELINGS OF DEPRESSION/ANXIETY, BUT HAS BEEN NOTED TO BECOME TEARFUL WHEN TALKING ABOUT "MAURIZ[place]", PT HAS ALSO BEEN OBSERVED POINTING TO THINGS NOT THERE, PT HAS HAD TO BE REDIRECTED WITH VERBALIZATION NUMEROUS TIMES, HAS NOT EXHIBITED THREATENING OR COMBATIVE BEHAVIORS. PT HAS TAKEN MEDICATIONS ORDERED WITH EXPLANATION AND HAS BEEN COOPERATIVE WITH ADLS P: RE-ORIENT TO REALITY/SURROUNDINGS NEEDED, DECREASE EXTERNAL STIMULATION
--- NOTE | 2020-05-17 16:20 | NUR ---
FOLLOW UP PT IS CALMER AT THIS TIME. IS NOT TRYING TO LEAVE ANYMORE TO SERVE WARRANTS. HAS BEEN SOCIALIZING WITH PEER AND STAFF MEMBER. ATTEMPTED TO PLAY MARILIN WITH THEM ALSO. PT IS NOT TRYING TO GET UP AND GO PLACES.
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
--- NOTE | 2020-05-17 17:34 | NUR ---
Telemedicine Patient seen by Gabe Hearn NP, via Telemedicine. No changes.
[2020-05-17] MEDS ORDERED: CARDURA ONE (19:29)
[2020-05-17] MEDS: LIPITOR PO SCH ×2 (19:32→21:00)
[2020-05-17] MEDS: ZYPREXA ZYDIS SL SCH ×2 (19:33→21:00)
[2020-05-17] MEDS: CARDURA PO SCH ×2 (19:34→21:00)
[2020-05-17 19:46] VITALS: BP 133/80
[2020-05-17] MEDS: ZYPREXA IM PRN (20:59)
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
--- NOTE | 2020-05-17 22:00 | NUR ---
FOLLOW UP MEDICATION SUCCESSFUL IN RELIEVING AGITATION AND RESTLESSNESS.
--- NOTE | 2020-05-18 05:45 | NUR ---
P.I.R.P. P. DTO/ALTERED THOUGHT PROCESS. I. PROVIDE 1:1 OBSERVATION DUE TO HIGH POTENTIAL FOR FALLS AND DTO ON ADMIT. EVERY 15 MINUTE DOCUMENTATION. PROVIDE AND ADMINISTER MEDICATIONS ORDERED PER MD.PROVIDE TASK ORIENTED GROUP AND ENCOURAGE GROUP ACTIVITY. MONITOR FOR CHANGES IN BEHAVIORS AND COGNITIVE STATUS. PROVIDE 1:1 INTERACTION TO ALLOW PATIENT TO EXPRESS FEELINGS AND CONCERNS. RE DIRECT AND RE ORIENT NEEDED. R. PATIENT HAS HAD BEHAVIORS OF DANGER TO OTHERS THIS SHIFT, AGITATION AND THREATENING, RESTLESSNESS DID NOT TAKE MEDS AT BEDTIME/HS, RECEIVED PRN ZYPREXA INJECTION WHICH WAS EFFECTIVE. RAMBLES, CHANGES SUBJECTS FREQUENTLY, LOOSE ASSOCIATIONS, REDIRECTED AND RE ORIENTED NEEDED. ON WHEN TAKING HS MEDS. PATIENT WITH VISUAL HALLUCINATIONS, PETTING SOMETHING AND TALKING TO A DOG. PATIENT DENIES ANXIETY ALTHOUGH APPEARS ANXIOUS AT TIMES, DENIES DEPRESSION P. CONTINUE CURRENT PLAN OF CARE
--- NOTE | 2020-05-18 07:50 | NUR ---
Report Assumed care of patient at shift change after report received from Asya Grullon CNA at the bedside for patient 1:1, relieved of duty by this RN.
[2020-05-18] MEDS: VIBRAMYCIN PO SCH (12:36)
[2020-05-18] MEDS: VITAMIN C PO SCH (12:36)
[2020-05-18] MEDS: COLACE PO SCH ×3 (12:36→21:00)
[2020-05-18] MEDS: PLAVIX PO SCH (12:37)
[2020-05-18] MEDS: TYLENOL #3 PO PRN (12:37)
[2020-05-18] MEDS: PROZAC PO SCH (12:38)
[2020-05-18] MEDS: BUSPAR PO SCH ×4 (12:38→21:00)
[2020-05-18] MEDS: ASPIRIN EC PO SCH (12:38)
[2020-05-18] MEDS: COZAAR PO SCH (12:39)
[2020-05-18] MEDS: VITAMIN D PO SCH (12:40)
[2020-05-18] MEDS: NORVASC PO SCH (12:40)
[2020-05-18] MEDS: LOPRESSER PO SCH ×3 (12:41→21:00)
[2020-05-18] MEDS: ZYPREXA ZYDIS SL SCH ×2 (12:42→19:30)
[2020-05-18 12:52] VITALS: BP 162/91
--- NOTE | 2020-05-18 13:00 | NUR ---
PRN PATIENT GIVEN ZYPREXA 10 MG PO PRN FOR PSYCHOTIC SYMPTOMS.PATIENT IS GRABBING AT AIR, TALKING TO PEOPLE THAT ARE NOT THERE AND UNABLE TO REDIRECT.
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
--- NOTE | 2020-05-18 18:09 | NUR ---
PIRP P: ALTERED THOUGHT PROCESS; RISK FOR FALLS I: MAINTAIN SAFETY OF ENVIRONMENT; PUT MEASURES IN PLACE TO ENSURE SAFETY OF PATIENT; PROVIDE MEDICATIONS ORDERED BY PHYSICIAN, EXPLAIN NEED/PURPOSE FOR MEDICATION; PROVIDE GROUP ACTIVITIES; ASSESS PATIENT FOR DELUSIONAL THINKING AND ANXIETY WITH AGITATION; ASSESS FOR DEPRESSION; SI/HI; PROVIDE NUTRITIOUS MEALS AND SNACKS; ASSIST PATIENT WITH ADLS; CLOSELY MONITOR PATIENT R: PATIENT 1:1 WITH Q 15 MINUTE LOGS; STAFF MEMBER ASSIGNED TO PATIENT; ASSISTED TO SHAVE AND CLEAN UP; PATIENT FINISHING >75% OF MEALS; PATIENT HAS TAKEN ALL OF HIS MEDICATIONS TODAY; MEDICATION CHANGE AFTER TELEMED WITH EMILIA ALTAMIRANO TESTER REGULATOR, OLANZAPINE 5 MG DAILY DOSE IN MORNING ADDED; BEHAVIORS AND AGITATION NOTED TO BECOME WORSE TOWARDS LATE AFTERNOON, HAS BEEN UNABLE TO HAVE A MEANINGFUL VISIT WITH THIS AFTERNOON DUE TO RESTLESSNESS; DENIES DEPRESSION, ANXIETY, SI/HI, LOOSE ASSOCIATIONS AND RAMBLING NOTED P: MONITOR FOR IMPROVEMENT IN DELIRIUM VS OTHER CAUSE FOR BEHAVIOR DISTURBANCE; PLAN FOR A SAFE DISCHARGE
[2020-05-18] MEDS: LIPITOR PO SCH ×2 (19:30→21:00)
--- NOTE | 2020-05-18 19:30 | NUR ---
PRN TYLENOL #3 GIVEN TO PT FOR PAIN OF LEFT LEG
[2020-05-18 19:42] VITALS: BP 139/73
[2020-05-18] MEDS: CARDURA PO SCH (20:14)
--- NOTE | 2020-05-18 20:15 | NUR ---
MED ADMINISTRATION MEDS GIVEN AT 1930 WITH SPOUSE PRESENT. PT TOOK MEDICATIONS FROM SPOUSE WILLINGLY. GIVEN EARLY DUE TO PRIORS INSTANCES OF PT REFUSING MEDICATIONS
--- NOTE | 2020-05-18 20:30 | NUR ---
FOLLOW UP MEDICATION AFFECTIVE IN RELIEVING PAIN OF LEFT LEG
--- NOTE | 2020-05-19 06:05 | NUR ---
P.I.R.P. P. ALTERATION IN THOUGHT PROCESS. I. PROVIDE EVERY 15 MINUTE CHECKS, PROVIDE SAFE ENVIRONMENT, PROVIDE MEDICATIONS ORDERED PER MD, PROVIDE TASK ORIENTED GROUP ACTIVITY AND ENCOURAGE PARTICIPATION. RE DIRECT AND RE ORIENT NEEDED. MONITOR FOR CHANGES IN COGNITIVE STATUS. PROVIDE 1:1 INTERVENTION TO ALLOW PATIENT TO EXPRESS FEELINGS. R. PATIENT TOOK MEDS ORDERED, MEDS WERE GIVEN WHILE SPOUSE IN VISITING AND GIVING MEDS EARLIER IN EVENING AND SPOUSE BEING PRESENT WAS HELPFUL, NO RESISTANCE IN MED ADMINISTRATION THIS SHIFT, PATIENT PARTICIPATED IN GROUP ACTIVITY, RAMBLED TO OTHERS AND STAFF AND TO THINGS NOT VISUAL TO OTHERS. HALLUCINATIONS AUDITORY AND VISUAL. NO BEHAVIORS THIS SHIFT, COOPERATIVE AND PLEASANT. DID TAKE PRN TYLENOL 3 FOR PAIN. P. CONTINUE CURRENT PLAN OF CARE.
--- NOTE | 2020-05-19 08:50 | PRM.PN ---
Mood: "feeling better" Sleep: 5.75 hours + 4 hours this morning Appetite: did not have breakfast, not yet Suidical thoughts: denies, Homicidal thoughts: denies Recent stressors: not been awake to know Family support: visited "Dora" Aggressive Behavior: denies Ability to Perform ADL'sc: staff assist Psychotic sympstoms: denies ah, hears clicking noises, Manic Symptoms: not restless today Living situation: was at rehab Illicit Drug usec: na Alcoholo use: na Tobacco use: na Family,PT,Surgical,&Current HX: (1) Dementia (2) Delusional disorder Anxity Symptoms: denies Anger/Irritablility: denies Muscle Strength & Tone: Rigidity Gait & Station: Ataxic Appearance: Well groomed/hygience Attitude & Behaviour: Cooperative/Pleasant Mood & Affect: Euthymic/appr/congruent Orientation: Disoriented to place, Disoriented to time Attention/Concentration: Fair attention, Fair concentration Speech: Reg rate/vol/rhyth/prosod Judgement/Insight: Poor judgement, Poor insight Thought Process: Circumferential Language: Urdu Thought content/Abnormal/Psych: Delusions Fund of Knowledge: WNL Associations: Other Constitutional: None Neurological: None Psychiatric: Psychosis Trail I: dementia, delusional disorder, Trail IV: was at rehab at [facility] Assessment/Plan Assessment/Plan Plan Nursing; Ravin remains sleeping this morning visited previous evening, he was agitated and wanted to go home with her, he settled some after she redirected him he took his medications last night, slept 5.75 hours Patient: Reports he has not been up long enough this morning- but calmly answers correctly, Vital Signs Date Time Temp Pulse Resp B/P (MAP) Pulse Ox O2 Delivery O2 Flow Rate FiO2 05/19/20 10:23 98.2 65 18 148/65 (92) 96 Vent Allergies Coded Allergies Type Severity Reaction Last Updated Verified No Known Drug Allergies Allergy Unknown 05/14/20 Yes Current Medications Medications (Trade) Dose Ordered Sig/Power PRN Reason Start Time Stop Time Status Last Admin Amlodipine Besylate (Norvasc) 10 mg DAILY@0900 05/16/20 09:00 06/15/20 08:59 05/18/20 12:40 Olanzapine (Zyprexa Zydis) 5 mg AM 05/19/20 09:00 06/18/20 08:59 Summary; Is alert but just worke, was answering questions correctly CONSENT: Consent was obtained by patient for telemedicine visit. Consent was obtained for the presence of staff member throughout encounter. Privacy was maintained throughout encounter PLAN: 1. CONTINUE BEHAVIORAL HEALTH MANAGEMENT. 2. CONTINUE CURRENT MEDICATIONS PRESCRIBED. STAFF AGREEABLE WITH PLAN 3. ALL PATIENT QUESTIONS ANSWERED RELATED TO MEDICATIONS, PLAN OF CARE, AND EXPECTED OUTCOMES. 4. SAFETY PLAN DISCUSSED. 5. EKG PRIOR TO DISCHARGE, RULE OUT CHANGED SECONDARY TO ATYPICAL ANTIPSYCHOTIC (PACEMAKER PRESENT) 6. due to sleeping in late today and took HS zyprexa last night, ok to hold this mornings dose LUIS ARMANDO ALTAMIRANO NP May 19, 2020 08:50
[2020-05-19] MEDS ORDERED: ZYPREXA ZYDIS SL SCH (09:00)
[2020-05-19 10:23] VITALS: BP 148/65
--- NOTE | 2020-05-19 10:32 | NUR ---
morning doris held: Doris held this morning per Rafat MOREJONP.
[2020-05-19] MEDS: BUSPAR PO SCH ×3 (11:43→20:55)
[2020-05-19] MEDS: TYLENOL #3 PO PRN ×2 (11:43→20:10)
[2020-05-19] MEDS: COLACE PO SCH ×2 (11:43→20:56)
[2020-05-19] MEDS: VITAMIN D PO SCH (11:43)
[2020-05-19] MEDS: ASPIRIN EC PO SCH (11:43)
[2020-05-19] MEDS: PROZAC PO SCH (11:44)
[2020-05-19] MEDS: NORVASC PO SCH (11:44)
[2020-05-19] MEDS: VIBRAMYCIN PO SCH (11:44)
[2020-05-19] MEDS: PLAVIX PO SCH (11:44)
[2020-05-19] MEDS: VITAMIN C PO SCH (11:45)
[2020-05-19] MEDS: LOPRESSER PO SCH ×2 (11:45→20:57)
[2020-05-19] MEDS: COZAAR PO SCH (11:45)
[2020-05-19] MEDS: ZYPREXA ZYDIS SL PRN (14:31)
--- NOTE | 2020-05-19 14:33 | NUR ---
PRN: PATIENT RESTLESS, CONFUSED AND SEEKING EXIT, REQUESTING TO BE LEFT ALONE SO HE CAN GO THROUGH THE DOOR. ZYPREXA 10 MG PO PRN GIVEN
--- NOTE | 2020-05-19 17:07 | NUR ---
PIRP P: ALTERED THOUGHT PROCESS; RISK FOR FALLS I: MAINTAIN A SAFE SECURE ENVIRONMENT; 1:1 WITH STAFF MEMBER; MEDICATIONS ORDERED WITH EXPLANATION OF PURPOSE/NEED; ASSESS PATIENT FOR DEPRESSION, ANXIETY, SI/HI, VISIONS OR VOICES; PROVIDE GROUP ACTIVITIES; OFFER NUTRITIOUS MEALS AND SNACKS WITH HYDRATION; ENCOURAGE SHOWER AND SHAVING; REORIENT AND REDIRECT NEEDED R: ROOM WITHIN SIGHT OF NURSING, MONITORING LOGGED, PATIENT STAYS WITH STAFF MEMBERS; SHOWER OFFERED, REFUSED; ASSISTED TO TOILET; PATIENT HAS EATEN >75% OF MEALS, DRINKS ICE WATER AND WILL ASK FOR IT; PATIENT SLEPT LATE, MISSED BREAKFAST HAD SNACK; PATIENT BECOMES RESTLESS, TRIES TO STAND ON HIS OWN IS ASSISTED USING A GAIT BELT; REDIRECTED/REORIENTED FREQUENTLY; PATIENT NOTED TO SEE AND TALK TO A "LITTLE BLACK BOY" AND SEES OTHER PEOPLE NOT THERE, WILL USUALLY TALK TO THEM; RAMBLING SPEECH, LOOSE ASSOCIATION P: CONTINUE PHYSICAL THERAPY, GROUP ACTIVITIES; PLAN FOR A SAFE DISCHARGE
--- NOTE | 2020-05-19 20:10 | NUR ---
PRN TYLENOL #3 GIVEN TO PT FOR PAIN OF LEFT HIP
[2020-05-19] MEDS: ZYPREXA IM PRN (20:45)
[2020-05-19] MEDS: LIPITOR PO SCH (20:56)
[2020-05-19] MEDS: CARDURA PO SCH (20:56)
[2020-05-19] MEDS: ZYPREXA ZYDIS SL SCH (20:57)
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
--- NOTE | 2020-05-19 21:20 | NUR ---
PIRP P: ALTERED THOUGHT PROCESS; RISK FOR FALLS I: MAINTAIN A SAFE SECURE ENVIRONMENT; 1:1 WITH STAFF MEMBER; MEDICATIONS ORDERED WITH EXPLANATION OF PURPOSE/NEED; ASSESS PATIENT FOR DEPRESSION, ANXIETY, SI/HI, VISIONS OR VOICES; PROVIDE GROUP ACTIVITIES; OFFER NUTRITIOUS MEALS AND SNACKS WITH HYDRATION; ENCOURAGE SHOWER AND SHAVING; REORIENT AND REDIRECT NEEDED R: ROOM WITHIN SIGHT OF NURSING, MONITORING LOGGED, PATIENT STAYS WITH STAFF MEMBERS; SHOWER OFFERED, REFUSED; ASSISTED TO TOILET; DRINKS ICE WATER AND WILL ASK FOR IT; PATIENT BECAME RESTLESS,HITTING AND GRABBING STAFF, TRIES TO STAND ON HIS OWN IS ASSISTED USING A GAIT BELT; REDIRECTED/REORIENTED FREQUENTLY; RAMBLING SPEECH, LOOSE ASSOCIATION P: CONTINUE PHYSICAL THERAPY, GROUP ACTIVITIES; PLAN FOR A SAFE DISCHARGE
[2020-05-19 21:32] VITALS: BP 112/63
--- NOTE | 2020-05-19 21:37 | NUR ---
FOLLOW UP TYLENOL #3 SUCCESSFUL IN RELIEVING PAIN. ZYPREXA SUCCESSFUL, PT IS IN BED LYING DOWN WITH EYES CLOSED AND CHEST RISING AND FALLING.
[2020-05-20 07:30] VITALS: BP 136/67
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
[2020-05-20] MEDS: VITAMIN C PO SCH (08:47)
[2020-05-20] MEDS: CEPHULAC PO PRN (08:47)
[2020-05-20] MEDS: COZAAR PO SCH (08:47)
[2020-05-20] MEDS: VITAMIN D PO SCH (08:47)
[2020-05-20] MEDS: PLAVIX PO SCH (08:48)
[2020-05-20] MEDS: NORVASC PO SCH (08:48)
[2020-05-20] MEDS: BUSPAR PO SCH ×3 (08:48→20:27)
[2020-05-20] MEDS: PROZAC PO SCH (08:48)
[2020-05-20] MEDS: COLACE PO SCH ×2 (08:48→20:28)
[2020-05-20] MEDS: ASPIRIN EC PO SCH (08:48)
[2020-05-20] MEDS: VIBRAMYCIN PO SCH (08:49)
[2020-05-20] MEDS: LOPRESSER PO SCH ×2 (08:49→20:27)
[2020-05-20] MEDS ORDERED: ZYPREXA ZYDIS SL SCH (09:00)
--- NOTE | 2020-05-20 11:42 | PCM.EKG ---
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
[2020-05-20] MEDS: TYLENOL #3 PO PRN (13:36)
[2020-05-20] MEDS: ZYPREXA ZYDIS SL SCH ×2 (14:28→20:28)
--- NOTE | 2020-05-20 17:40 | NUR ---
PIRP P: ALTERED THOUGHT PROCESS, ALTERATION IN MOOD I: ASSESS FOR PSYCHOTIC SYMPTOMS, ASSESS REASONS FOR IRRITABILITY, GIVE CLEAR AND SIMPLE INSTRUCTIONS, PROVIDE TASK-ORIENTED ACTIVITIES, 1:1 OBSERVATION, PROVIDE POSITIVE FEEDBACK ON APPROPRIATE BEHAVIOR, MONITOR FOR CHANGES IN USUAL BEHAVIOR, REDIRECT WITH VERBALIZATION, GIVE MEDICATIONS ORDERED, REINFORCE FALL PREVENTION TECHNIQUES, RE-ORIENT TO SURROUNDINGS NEEDED, REINFORCE EDUCATION REGARDING APPROPRIATE USE OF EQUIPMENT, ENCOURAGE PARTICIPATION IN OWN SELF-CARE R: PT HAS MOSTLY PLEASANT AFFECT THROUGHOUT SHIFT, HAS EXHIBITED PERIODS OF IRRITABILITY. HAS NOT EXHIBITED THREATENING OR COMBATIVE BEHAVIORS, IS ABLE TO BE REDIRECTED WITH VERBALIZATION. PT DENIES FEELINGS OF DEPRESSION, ANXIETY, SI/HI. NO HALLUCINATIONS OR DELUSIONS NOTED. PT EXHIBITS POOR INSIGHT TO DISEASE PROCESS, SPEECH IS UNCLEAR, EXHIBITS LOOSE ASSOCIATIONS. ALERT AND ORIENTED TO SELF, UNABLE TO ANSWER ASSESSMENT QUESTIONS APPROPRIATELY. PT HAS EXHIBITED EPISODES OF BEING SEXUALLY INAPPROPRIATE, HAS ATTEMPTED TO GRAB FEMALE STAFF'S BREASTS, ATTEMPTED TO KISS STAFF, AND HAS MADE VULGAR COMMENTS INCLUDING, "I'M GOING TO SHOVE A GOLF BALL UP YOUR PUSSY, WE'RE GOING TO GO GET A HARD-ON," AND "YOU'VE GOT A NICE RACK." PT REQUIRES REINFORCEMENT OF APPROPRIATE BEHAVIORS AND CLEAR BOUNDARIES. PT REMAINS HIGH FALL RISK, FREQUENTLY ATTEMPTS TO AMBULATE WITHOUT ASSISTANCE. PT HESITANT TO TAKE MEDICATIONS, REQUIRES MULTIPLE ATTEMPTS BY STAFF AND EDUCATION REGARDING MEDICATION COMPLIANCE. HAS REFUSED SHOWER THIS SHIFT, BUT HAS BEEN COOPERATIVE WITH TOILETING. P: SCHEDULED ZYPREXA CHANGED TO 0900 AND 1500, REDIRECT WITH VERBALIZATION, USE CALM APPROACH
[2020-05-20 20:00] VITALS: BP 157/70
[2020-05-20] MEDS ORDERED: CARDURA ONE (20:22)
[2020-05-20] MEDS: CARDURA PO SCH (20:28)
[2020-05-20] MEDS: LIPITOR PO SCH (20:28)
[2020-05-21] MEDS: TYLENOL #3 PO PRN ×2 (01:19→18:41)
--- NOTE | 2020-05-21 05:32 | NUR ---
PIRP- P- ALTERATION IN THOUGHT PROCESS AND ALTERATION IN MOOD I- PROVIDE MEDICATION ORDERED,PROVIDE SAFE AND SUPPORTIVE ENVIRONMENT AND 1:1 WITH STAFF AT ALL TIMES. REORIENT NEEDED. R--PT. DENIED DEPRESSION AND ANXIETY TONIGHT. PT. REMAINS 1:1 WITH STAFF AT ALL TIMES TONIGHT. HE HAS NOT EXHIBITED SEXUALLY INAPPROPRIATE BEHAVIORS THIS SHIFT. PT. HAS TALKED TO PEOPLE NOT THERE AND SAW BUGS AND REACHING INTO THE AIR AT TIMES IF PICKING UP SOMETHING NOT THERE. 1:1 FOR GROUP WAS DONE WITH STAFF .HE ATE SNACKS BUT HAS EXHIBITED DELUSIONS AND LOOSE ASSOCIATION. REDIRECTED PT. NEEDED. PT. HAS BEEN REPOSITIONED FREQUENTLY FOR COMFORT .PT. HAS BEEN LYING AWAKE IN BED OF THIS TIME. P- PROVIDE 1:1 INTERVENTION ALLOWING PT. TO EXPRESS THOUGHTS AND FEELINGS.
[2020-05-21 07:36] VITALS: BP 142/79
[2020-05-21] MEDS: PLAVIX PO SCH (08:49)
[2020-05-21] MEDS: VIBRAMYCIN PO SCH (08:49)
[2020-05-21] MEDS: BUSPAR PO SCH ×3 (08:49→20:55)
[2020-05-21] MEDS: VITAMIN C PO SCH (08:49)
[2020-05-21] MEDS: COLACE PO SCH ×2 (08:49→20:57)
[2020-05-21] MEDS: VITAMIN D PO SCH (08:49)
[2020-05-21] MEDS: COZAAR PO SCH (08:50)
[2020-05-21] MEDS: ASPIRIN EC PO SCH (08:50)
[2020-05-21] MEDS: ZYPREXA ZYDIS SL SCH (08:50)
[2020-05-21] MEDS: PROZAC PO SCH (08:50)
[2020-05-21] MEDS: NORVASC PO SCH (08:50)
[2020-05-21] MEDS: LOPRESSER PO SCH ×2 (08:50→20:56)
--- NOTE | 2020-05-21 11:32 | NUR ---
TELEMED PT WAS SEEN BY Ana DICKINSON, SHIREEN, RRT. RECEIVED ORDERS TO DISCONTINUE SCHEDULED ZYPREXA, AND START RISPERDAL TWICE A DAY, SEE EMR.
--- NOTE | 2020-05-21 11:38 | PRM.PN ---
Mood: UNABLE TO ASSESS Sleep: DID NOT SLEEP AT ALL LAST NIGHT Appetite: GOOD Suidical thoughts: DENIES Homicidal thoughts: DENIES Recent stressors: SURGERY AND HEAD INJURY Family support: GOOD Aggressive Behavior: CURSING AT STAFF Ability to Perform ADL'sc: ASSISTANCE NEEDED Psychotic sympstoms: DELUSIONA THOUGHTS Manic Symptoms: NONE NOTED Living situation: WITH AT HOME Illicit Drug usec: NONE NOTED Alcoholo use: NONE Tobacco use: NONE Family,PT,Surgical,&Current HX: (1) Delusional disorder (2) Dementia Anxity Symptoms: UNABLE TO ASSESS Anger/Irritablility: SEXUALLY INAPPROPRIATE COMMENTS TO STAFF AND CURSING Muscle Strength & Tone: WNL Gait & Station: Ataxic Appearance: Casual attire Attitude & Behaviour: Cooperative/Pleasant Mood & Affect: Euthymic/appr/congruent Orientation: Disoriented to person, Disoriented to place, Disoriented to time, Disoriented to situation Attention/Concentration: Poor attention, Poor concentration Speech: Impaired Judgement/Insight: Poor judgement, Poor insight Thought Process: Loose Language: East Timorese Thought content/Abnormal/Psych: A/V Mitchell (WILL REACH FOR THINGS THAT ARE NOT PRESENT) Fund of Knowledge: Other (LIMITED) Associations: CHELA Memory (recent and remote): Recent memory repaired, Remote memory repaired Constitutional: Fatigue, Insomnia Neurological: None Psychiatric: Psychosis [place] I: DELUSIONAL DISRDER [place] II: DEFERRED [place] III: SP HEAD INJURY [place] IV: HEALTH STRESSOR, POOR INSIGHT [place] V: 25 Assessment/Plan Assessment/Plan Assessment/Plan Intake and Output 05/21/20 07:00 Intake Total 1969 ml Balance 1969 ml Intake Oral 1969 ml # Voids 9 Problems Medical Problems: (1) Delusional disorder Status: Acute ICD Codes: F22 - Delusional disorders SNOMED: [id number] Responsible Provider: Malini Willard D.O., ER Problem Recorded: May 14, 2020 12:01 Last Edited By: Marlys Kay RN Sdc on May 15, 2020 10:09 THE PATIENT WAS SEEN BY ABIOLA DICKINSON VIA TELEMEDICINE EQUIPMENT (SUPPORTED BY [facility]) ALONG WITH THE TREATMENT TEAM. HE HAS BEEN COMBATIVE AND MAKING SEXUALLY INAPPROPRIATE COMMENTS.HE IS DID NOT SLEEP AT ALL LAST NIGHT AND HE IS ASLEEP AT NIGHT. APPETITE IS FAIR. HE HAS BEEN COMBATIVE AND CURSING AT STAFF THIS MORNING. HE HAS NOT REQUIRED ANY PRNS IN THE LAST 24 HOURS. HE IS TOLERATING HIS MEDICATIONS WELL BUT IS NOT CONSISTENTLY BEEN CALM OR COOPERATIVE. ASSESSMENT: DELUSIONAL DISORDER PLAN: 1. CONTINUE BEHAVIORAL HEALTH MANAGEMENT. 2. DISCONTINUE SCHEDULED OLANZAPINE. START RISPERDAL 1MG AT BEDTIME, AND 0.5MG 1 PO IN AM. CONTINUE ALL OTHER CURRENT MEDICATIONS PRESCRIBED. STAFF AGREEABLE WITH PLAN 3. ALL PATIENT QUESTIONS ANSWERED RELATED TO MEDICATIONS, PLAN OF CARE, AND EXPECTED OUTCOMES. 4. SAFETY PLAN DISCUSSED. ABIOLA DICKINSON NP May 21, 2020 11:38
--- NOTE | 2020-05-21 18:01 | NUR ---
PIRP P: DTO, ALTERED THOUGHT PROCESS, ALTERATION IN MOOD I: ASSESS FOR PSYCHOTIC SYMPTOMS, SET CLEAR AND APPROPRIATE BOUNDARIES, ASSESS REASONS FOR ANGER, GIVE CLEAR AND SIMPLE INSTRUCTIONS, 1:1 OBSERVATION, PROVIDE TASK-ORIENTED ACTIVITIES, MONITOR FOR CHANGES IN USUAL BEHAVIOR, REDIRECT WITH VERBALIZATION, GIVE MEDICATIONS ORDERED, RE-ORIENT TO SURROUNDINGS NEEDED, REINFORCE EDUCATION REGARDING HYGIENE AND PREVENTION OF SKIN BREAKDOWN, ALTERNATE REST/ACTIVITY R: PT HAS MOSTLY FLAT AFFECT THROUGHOUT SHIFT, HAS BECOME IRRITABLE AT TIMES. EXHIBITED EPISODE OF COMBATIVE BEHAVIORS WITH ADL CARE IN A.M., MADE CONTACT WITH CLOSED FIST ON STAFF'S LEG, AND SWUNG AT ANOTHER STAFF MEMBER WITH NO CONTACT. PT WAS ABLE TO BE REDIRECTED WITH VERBALIZATION. HAS NOT BEEN ABLE TO ANSWER ASSESSMENT QUESTIONS APPROPRIATELY D/T WORD SALAD, LOOSE ASSOCIATIONS, AND DISORIENTATION. PT HAS BEEN OBSERVED REACHING FOR THINGS NOT PRESENT AND TALKING TO PEOPLE NOT THERE AT TIMES. PT HAS HAD DIFFICULTY REMAINING AWAKE DURING SHIFT D/T NOT SLEEPING AT NIGHT, RESPONDS TO NAME AND TOUCH WITHOUT DIFFICULTY. AT APPROX 1500 BECAME INCREASINGLY ALERT, BEGAN ATTEMPTING TO GET OOB AND AMBULATE WITHOUT ASSISTANCE. REQUIRES REINFORCEMENT OF FALL PREVENTION EDUCATION. WAS x2 PERSON ASSIST IN A.M., BUT IN AFTERNOON WAS ABLE TO AMBULATE WITH x1 ASSIST WITH USE OF WALKER AND GAIT BELT. PT HAS NOT PARTICIPATED IN GROUP ACTIVITIES, BUT HAS BEEN COOPERATIVE WITH GOING TO DAY ROOM FOR MEALS, HAS TAKEN MEDICATIONS ORDERED. P: RE-ORIENT TO REALITY/SURROUNDINGS NEEDED, ALTERNATE REST/ACTIVITY, USE CALM APPROACH
--- NOTE | 2020-05-21 18:47 | NUR ---
PRN USING PROXY PAIN IS 8/10. PT IS ALSO RUBBING AT HIS LEGS AND LEGS WERE RESTLESS. VERY TENSE LOOKING IN THE FACE. TYLENOL #3 ONE TABLET GIVEN PO TO PT. WHEN EXPLAINED TO PT THAT IT WAS A PAIN PILL PT HELD OUT HIS HAD TO TAKE IT. PT TOOK THE PAIN PILL WITHOUT ANY DIFFICULTY.
[2020-05-21 20:00] VITALS: BP 171/85
[2020-05-21] MEDS: ZYPREXA IM PRN (20:02)
[2020-05-21] MEDS ORDERED: HALDOL IM ONE (20:30)
[2020-05-21] MEDS ORDERED: CARDURA ONE (20:50)
[2020-05-21] MEDS: RISPERDAL PO SCH (20:55)
[2020-05-21] MEDS: LIPITOR PO SCH (20:55)
[2020-05-21] MEDS: CARDURA PO SCH (20:55)
[2020-05-21] MEDS: SINEQUIN PO SCH (20:58)
--- NOTE | 2020-05-21 21:00 | NUR ---
Medication pt received new medication Doxepin for sleep at this time per Carolynn RN, will monitor for any signs of adverse effects
--- NOTE | 2020-05-21 21:31 | NUR ---
PRN Pt.exhibit inappropriate behaviors at this time, grabbing CASH POSTING SPECIALIST's arm and squeezing it and want let go stating that he is going to arrest her, pt is actively hallucinating and is not redirectable, attempting to get up out of bed and does not want anyone touching him and becomes physical aggressive, swinging and attempting to hit making contact at times with nurses, pt grabbed walker and threw walker in room, pt received Zyprexa 10mg IM in Right Deltoid, warehouse guard Rodney LAURA, and windows security analyst present at this time, with Donna PARHAM, this nurse Federico QUIROSN ,pt.received IM without difficulty., will cont to monitor pt's behavior
--- NOTE | 2020-05-21 23:15 | NUR ---
Reassessment Pt. is resting quietly at this time with eyes closed resp. even non-labored no acute distress noted, pt. cont. to have one to one at this time
--- NOTE | 2020-05-22 06:04 | NUR ---
PIRP P- ALTERATION IN THOUGHT AND ALTERATION IN MOOD I- PROVIDE MEDICATION ORDERED AND PROVIDE SAFE AND SUPPORTIVE ENVIRONMENT AND 1:1 WITH STAFF AT ALL TIMES. R- PT. ORIENTED TO NAME AND YEAR. PT. WAS LYING IN BED FOLLOWING SHIFT CHANGE THEN BECAME COMBATIVE WITH REDIRECTION WHEN HE GOT UP AND STARTED WALKING AND WAS NOT REDIRECTABLE PREVIOUSLY CHARTED. RESTING IN BED WITH EYES CLOSED AT THIS TIME. REMAINS 1:1 WITH STAFF AT ALL TIMES THIS SHIFT. P- WILL CONTINUE 1:1 WITH STAFF AT ALL TIMES.
--- NOTE | 2020-05-22 10:27 | PRM.PN ---
Mood: UNABLE TO ASSESS Sleep: SLEPT 10 HOURS Appetite: GOOD Suidical thoughts: NOT NOTED BY STAFF Homicidal thoughts: NONE NOTED BY STAFF Recent stressors: DECLINE IN HEALTH AND MENTATION. Family support: GOOD Aggressive Behavior: FIST TO STAFF TODAY. Ability to Perform ADL'sc: FULL ASSISTANCE NEEDED Psychotic sympstoms: DELUSIONAL Manic Symptoms: MOOD STABILITY Living situation: IN A FACILITY Illicit Drug usec: NONE Alcoholo use: NONE Tobacco use: NONE Family,PT,Surgical,&Current HX: (1) Dementia (2) Delusional disorder Anxity Symptoms: NONE NOTED Anger/Irritablility: PRESENT WITH STAFF Muscle Strength & Tone: WNL Gait & Station: Ataxic Appearance: Appears age stated Attitude & Behaviour: Cooperative/Pleasant, Poor eye contact Mood & Affect: Flat, Iabile Orientation: Disoriented to person, Disoriented to place, Disoriented to time, Disoriented to situation Attention/Concentration: Poor attention, Poor concentration Speech: Impaired Judgement/Insight: Poor judgement, Poor insight Thought Process: Loose Language: Syriac Thought content/Abnormal/Psych: Delusions Fund of Knowledge: Other Associations: CHELA Memory (recent and remote): Recent memory repaired, Remote memory repaired Constitutional: None Neurological: None Psychiatric: Psychosis [place] I: DELUSIONAL DISORDER [place] II: DEFERRED [place] III: SEE MEDICAL CHART [place] IV: HEALTH STRESSORS [place] V: 30 Assessment/Plan Assessment/Plan Plan Vital Signs Date Time Temp Pulse Resp B/P (MAP) Pulse Ox O2 Delivery O2 Flow Rate FiO2 05/22/20 09:40 97.8 89 16 96 Room Air 05/21/20 20:56 171/85 Allergies Coded Allergies Type Severity Reaction Last Updated Verified No Known Drug Allergies Allergy Unknown 05/14/20 Yes Current Medications Medications (Trade) Dose Ordered Sig/Power PRN Reason Start Time Stop Time Status Last Admin Doxepin HCl (Sinequin) 10 mg HS 05/21/20 21:00 06/20/20 20:59 05/21/20 20:58 Risperidone (Risperdal) 0.5 mg DAILY 05/22/20 09:00 06/21/20 08:59 Risperidone (Risperdal) 1 mg HS 05/21/20 21:00 06/20/20 20:59 05/21/20 20:55 Intake and Output 05/22/20 06:59 Intake Total 733 ml Balance 733 ml Intake Oral 733 ml # Voids 6 THE PATIENT WAS SEEN BY ABIOLA DICKINSON VIA TELEMEDICINE EQUIPMENT (SUPPORTED BY [facility]) ALONG WITH THE TREATMENT TEAM. HE RECEIVED ZYPREXA 10MG IM AT 8PM DUE TO RESTLESSNESS AND AGITATION. HE MADE A FIST BUT NEVER HIT STAFF. HE IS STILL SLEEPING THIS MORNING. HE IS STILL CURRENTLY ON 1:1. HE IS TOLERATING HIS MEDICATIONS WELL.YESTERDAY SCHEDULED OLAZANPAINE WAS CHANGED TO RISPERDAL TO SEE IF OUTBURSTS COULD BE BETTER CONTROLLED. ASSESSMENT: DELUSIONAL DISORDER PLAN: 1. CONTINUE BEHAVIORAL HEALTH MANAGEMENT. 2. CONTINUE CURRENT MEDICATIONS PRESCRIBED. STAFF AGREEABLE WITH PLAN 3. ALL PATIENT QUESTIONS ANSWERED RELATED TO MEDICATIONS, PLAN OF CARE, AND EXPECTED OUTCOMES. 4. SAFETY PLAN DISCUSSED. ABIOLA DICKINSON NP May 22, 2020 10:27
[2020-05-22] MEDS: VIBRAMYCIN PO SCH (11:10)
[2020-05-22] MEDS: ASPIRIN EC PO SCH (11:10)
[2020-05-22] MEDS: COLACE PO SCH ×2 (11:11→20:35)
[2020-05-22] MEDS: COZAAR PO SCH (11:11)
[2020-05-22] MEDS: BUSPAR PO SCH ×3 (11:12→20:35)
[2020-05-22] MEDS: NORVASC PO SCH (11:12)
[2020-05-22] MEDS: PLAVIX PO SCH (11:12)
[2020-05-22] MEDS: LOPRESSER PO SCH ×2 (11:13→20:33)
[2020-05-22] MEDS: RISPERDAL PO SCH ×2 (11:13→20:35)
[2020-05-22] MEDS: PROZAC PO SCH (11:13)
[2020-05-22] MEDS: VITAMIN D PO SCH (11:16)
[2020-05-22] MEDS: VITAMIN C PO SCH (11:50)
--- NOTE | 2020-05-22 18:28 | NUR ---
PIRP: P; ALTERED THOUGHT PROCESS I: PROVIDE MEDICATIONS ORDERED BY PHYSICIANS. ENCOURAGE ATTENDANCE AND PARTICIPATION OF ALL GROUPS. ALLOW PATIENT TO VOICE FEELINGS AND CONCERNS. MONITOR PATIENT FOR S/S OF PSYCHOTIC SYMPTOMS. R: PATIENT TOOK ALL MEDICATIONS ORDERED AND HAS BEEN CALM AND COOPERATIVE. HE HAS PARTICIPATED IN GROUPS AND HAS NOT BEE A BEHAVIOR ISSUE. HE IS A FALL RISK AND REQUIRES ASSISTANCE WITH AMBULATION. P: CONTINUE CURRENT PLAN OF CARE.
[2020-05-22] MEDS ORDERED: CARDURA ONE (19:14)
[2020-05-22 19:49] VITALS: BP 114/65
[2020-05-22] MEDS: SINEQUIN PO SCH (20:34)
[2020-05-22] MEDS: CARDURA PO SCH (20:34)
[2020-05-22] MEDS: TYLENOL #3 PO PRN (20:34)
[2020-05-22] MEDS: LIPITOR PO SCH (20:35)
--- NOTE | 2020-05-23 07:06 | NUR ---
P.I.R.P. P. ALTERATION IN THOUGHT PROCESS I. PROVIDE EVERY 15 MINUTE CHECKS, PROVIDE SAFE ENVIRONMENT, PROVIDE MEDICATIONS ORDERED BY MD, PROVIDE 1:1 INTERVENTION TO ALLOW PATIENT TO EXPRESS FEELINGS, MONITOR FOR CHANGES IN MENTAL STATUS. R. PATIENT TOOK MEDS ORDERED, HAS BEEN PLEASANTLY CONFUSED, RAMBLES, HALLUCINATIONS WHICH WORSENED IN EARLY AM, EXAMPLE WAS TALKING TO MULTIPLE PEOPLE AND ACTIVITIES AT ONE TIME. PATIENT WOULD STARE AT CEILING DURING NIGHT, EYES OPEN BUT SNORING AT TIMES. P. CONTINUE CURRENT PLAN OF CARE.
[2020-05-23 07:59] VITALS: BP 117/83
[2020-05-23] MEDS: VITAMIN D PO SCH (08:48)
[2020-05-23] MEDS: VIBRAMYCIN PO SCH (08:48)
[2020-05-23] MEDS: ASPIRIN EC PO SCH (08:48)
[2020-05-23] MEDS: VITAMIN C PO SCH (08:49)
[2020-05-23] MEDS: BUSPAR PO SCH ×3 (08:49→20:19)
[2020-05-23] MEDS: COLACE PO SCH ×2 (08:49→20:17)
[2020-05-23] MEDS: LOPRESSER PO SCH ×2 (08:49→20:18)
[2020-05-23] MEDS: PLAVIX PO SCH (08:49)
[2020-05-23] MEDS: NORVASC PO SCH (08:50)
[2020-05-23] MEDS: RISPERDAL PO SCH ×2 (08:50→20:19)
[2020-05-23] MEDS: PROZAC PO SCH (08:52)
[2020-05-23] MEDS: TYLENOL #3 PO PRN ×2 (08:52→20:20)
[2020-05-23] MEDS: COZAAR PO SCH (08:52)
--- NOTE | 2020-05-23 09:41 | PRM.PN ---
Mood: okay Sleep: 3.25hrs Appetite: good Suidical thoughts: denies Homicidal thoughts: denies Family support: daughters Aggressive Behavior: denies Ability to Perform ADL'sc: with assistance Psychotic sympstoms: seeing other police officers Manic Symptoms: denies Living situation: was living with before rehab Illicit Drug usec: denies Alcoholo use: denies Tobacco use: denies Anxity Symptoms: denies Anger/Irritablility: denies Appearance: Well groomed/hygience, Normal weight, Appears age stated Attitude & Behaviour: Poor eye contact Mood & Affect: Constricted Orientation: Disoriented to place, Disoriented to time, Disoriented to situation Attention/Concentration: Poor attention, Poor concentration Speech: Reg rate/vol/rhyth/prosod Judgement/Insight: Poor judgement, Poor insight Thought Process: Tangential Language: Taiwanese Thought content/Abnormal/Psych: A/V Mitchell, Delusions Fund of Knowledge: Other (unable to assess given inappropriate responses) Associations: CHELA Memory (recent and remote): Recent memory repaired, Remote memory repaired [place] I: Delusional Disorder, delirium [place] III: dementia Assessment/Plan Assessment/Plan Assessment/Plan Nursing: Worse at night, got a PRN zyprexa Having a conference with other police officers about arresting people, seemed to be laughing and talking to himself Patient: Patient not as conversive as the last time I met with him. He seemed more distractible, and tangential; responses did not always seem appropriate to conversation. He states that things are "going alright". He does report 'seeing' other police officers last night and talking with them. Daughters (with patient permission, spoke with both daughters on conference call on the phone) - has been visiting regularly, daughters have been calling regularly -they have concerns that patient may be a little out of it because he's in an unfamiliar environment (same thing happened after his brain bleed in Dec) -they are unsure if they can manage him at home with homehealth/PT or if he'll need to go back to rehab (they may come during the day when pt is getting PT to see if they would be able to manage him at home) -SW to assist if they are wanting him to go to rehab Vital Signs Date Time Temp Pulse Resp B/P (MAP) Pulse Ox O2 Delivery O2 Flow Rate FiO2 05/22/20 09:40 97.8 89 16 96 Room Air 05/21/20 20:56 171/85 Allergies Coded Allergies Type Severity Reaction Last Updated Verified No Known Drug Allergies Allergy Unknown 05/14/20 Yes Current Medications Medications (Trade) Dose Ordered Sig/Power PRN Reason Start Time Stop Time Status Last Admin Doxepin HCl (Sinequin) 10 mg HS 05/21/20 21:00 06/20/20 20:59 05/21/20 20:58 Risperidone (Risperdal) 0.5 mg DAILY 05/22/20 09:00 06/21/20 08:59 Risperidone (Risperdal) 1 mg HS 05/21/20 21:00 06/20/20 20:59 05/21/20 20:55 Intake and Output 05/22/20 06:59 Intake Total 733 ml Balance 733 ml Intake Oral 733 ml # Voids 6 Assessment: 75 yo M, transferred to [facility] for aggression and delusion that 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 Patient with episode of AVH/delusions last night of seeing other police officers in his room and conversing with them. Patient also more disoriented today than before. Unclear if this is just a fluctuation in his symptoms or a real worsening -- will increase Risperdal, as he is still on low dose. Plan R PLAN: 1. CONTINUE BEHAVIORAL HEALTH MANAGEMENT. 2. CONTINUE CURRENT MEDICATIONS PRESCRIBED, with increase in Risperdal 1mg PO QAM and 2mg PO QHS 3. ALL PATIENT QUESTIONS ANSWERED RELATED TO MEDICATIONS, PLAN OF CARE, AND EXPECTED OUTCOMES. 4. SAFETY PLAN DISCUSSED. MALLIKA JONES MD May 23, 2020 09:40
--- NOTE | 2020-05-23 12:31 | NUR ---
DISCHARGE PLANNING: SW VISITED WITH PT'S KAYKAY. PT'S IS UNSURE IF SHE WILL SAFELY BE ABLE TO TAKE CARE OF PT AT HOME. PT'S WOULD LIKE TO COME UP AND WORK WITH PHYSICAL THERAPY TO SEE IF SHE WOULD SAFELY BE ABLE TO TAKE PT HOME. ARRANGEMENTS WERE MADE FOR PT'S TO COME Wednesday05/29/2020 AT 1200. IF PT'S DOES NOT FEEL SHE IS ADEQUATELY ABLE TO TAKE CARE OF PT AT HOME SHE WOULD LIKE HIM TO GO TO [facility] FOR [facility] SO PT COULD CONTINUE TO WORK WITH PHYSICAL THERAPY TO GET STRONG ENOUGH TO COME HOME. SW GOT VERBAL CONSENT TO FAX OVER CLINICAL TO [employer]. CLINICAL FAXED OVER. PT'S ULTIMATE GOAL IS FOR PT TO RETURN HOME BUT IF NOT SAFELY ABLE TENTATIVE GOAL IS TO GO TO [facility] FOR [facility]. SW TO CONTINUE TO FOLLOW AND ASSIST WITH DISCHARGE PLANNING NEEDS.
[2020-05-23] MEDS: ZYPREXA ZYDIS SL PRN (13:52)
--- NOTE | 2020-05-23 13:54 | NUR ---
Behavior Zyprexa Zydis 10mg SL given for psychosis with anxiety. 1500 mg Buspar dose given at this time also. Addendum: 05/23/20 at 1431 by VALENTÍN Mcdowell RN Patient did not take Zydis, This RN opted for IM Zyprexa 10mg right and left deltoid. Addendum: 05/23/20 at 1438 by VALENTÍN Mcdowell RN Patient Grabbing staff around wrists, accused this RN of "raping" him after attempt to assist him to toilet. Unable to redirect patient. Zyprexa 10 mg IM given with Analy OT to assist and Danielle SENIOR BIOINFORMATICS SPECIALIST. Patient trying to stand, is a high fall risk.
[2020-05-23] MEDS ORDERED: WATER 20 ML ONE (14:09)
[2020-05-23] MEDS: ZYPREXA IM PRN (14:22)
--- NOTE | 2020-05-23 16:00 | NUR ---
Behavior reassessment Patient calmed and redirectable with in 20 minutes. Allowed RN to assist him to toilet. Patient remained calm for a shave.
--- NOTE | 2020-05-23 16:16 | NUR ---
P; ALTERED THOUGHT PROCESS I: PROVIDE MEDICATIONS ORDERED BY PHYSICIANS. ENCOURAGE ATTENDANCE AND PARTICIPATION OF ALL GROUPS. ALLOW PATIENT TO VOICE FEELINGS AND CONCERNS. MONITOR PATIENT FOR S/S OF PSYCHOTIC SYMPTOMS. R: PATIENT HAS TAKEN ALL MEDICATIONS ORDERED AND HAS REQUIRED A ZYPREXA IM INJECTION FOR AGGRESSIVE BEHAVIOR TOWARDS STAFF. SEE PREVIOUS NOTE. THE MOST OF THE DAY HE HAS BEEN CALM AND COOPERATIVE. HE REMAINS CONFUSED AND DISORIENTED. P: CONTINUE CURRENT PLAN OF CARE.CHANGED MED: RISPERIDAL 2 MG PO HS, 1 MG PO DAILY.
[2020-05-23 19:45] VITALS: BP 117/70
[2020-05-23] MEDS: SINEQUIN PO SCH (20:17)
[2020-05-23] MEDS: CARDURA PO SCH (20:18)
[2020-05-23] MEDS: LIPITOR PO SCH (20:19)
--- NOTE | 2020-05-23 20:20 | NUR ---
PRN TYLENOL #3 GIVEN TO PT FRO PAIN. PT STATED THAT HE WAS IN PAIN.
--- NOTE | 2020-05-23 21:20 | NUR ---
FOLLOW UP TYLENOL #3 AFFECTIVE IN RELIEVING PAIN. PT IS LYING IN BED WITH EYES CLOSED CHEST RISING AND FALLING. BED IN LOW LOCKED POSITION. SIDE RAILS UP X2.
--- NOTE | 2020-05-24 05:24 | NUR ---
P.I.R.P. P. ALTERATION IN THOUGHT PROCESS. AGITATION/AGGRESSION I. PROVIDE EVERY 15 MINUTE CHECKS, PROVIDE SAFE ENVIRONMENT, PROVIDE MEDICATIONS ORDERED BY MD, PROVIDE 1:1 INTERVENTION TO ALLOW PATIENT TO EXPRESS FEELINGS, MONITOR FOR CHANGES IN MENTAL STATUS. RE ORIENT AND RE DIRECT NEEDED. PROVIDE TASK ORIENTED GROUP ACTIVITY AND ENCOURAGE PARTICIPATION. R. PATIENT TOOK MEDS ORDERED, HAS BEEN PLEASANTLY CONFUSED, RAMBLES, HAS HALLUCINATIONS, TALKING AND PETTING AT WHAT APPEARS TO BE A DOG, PICKING AT THINGS NOT SEEN ON FLOOR. HAS SLEPT 7 HOURS THUS FAR THIS SHIFT. P. CONTINUE CURRENT PLAN OF CARE.
[2020-05-24 06:29] LABS: BASOPHIL % 0.4 % (0.0-0.2); EOSINOPHIL # 0.1 10^3/uL (0.0-0.2); EOSINOPHIL % 1.8 % (0.0-5.0); LYMPHOCYTES # 0.97 10^3/uL1 (1.0-4.8); LYMPHOCYTES % 12.3 % (24.0-44.0); MEAN CORP HGB 30.3 pg (26-34); MONOCYTES # 0.7 10^3/uL (0.3-0.8); MONOCYTES % 9.3 % (5.0-12.0); NEUTROPHILS % 76.1 % (41.0-85.0); PLATELET COUNT 145 10^3/uL (150-400); RED CELL DISTRIBUTION WIDTH 14.1 % (11.5-14.5)
[2020-05-24 06:47] LABS: CALCIUM 8.6 mg/dL (8.4-10.5); CARBON DIOXIDE 30.2 mmol/L (20.0-32)
[2020-05-24 07:45] VITALS: BP 141/78
[2020-05-24] MEDS: VITAMIN D PO SCH (08:55)
[2020-05-24] MEDS: COLACE PO SCH ×2 (08:55→20:05)
[2020-05-24] MEDS: LOPRESSER PO SCH ×2 (08:55→20:05)
[2020-05-24] MEDS: PLAVIX PO SCH (08:56)
[2020-05-24] MEDS: COZAAR PO SCH (08:56)
[2020-05-24] MEDS: ASPIRIN EC PO SCH (08:56)
[2020-05-24] MEDS: VITAMIN C PO SCH (08:56)
[2020-05-24] MEDS: PROZAC PO SCH (08:56)
[2020-05-24] MEDS: VIBRAMYCIN PO SCH (08:56)
[2020-05-24] MEDS: NORVASC PO SCH (08:56)
[2020-05-24] MEDS: RISPERDAL PO SCH ×2 (08:57→20:06)
[2020-05-24] MEDS: BUSPAR PO SCH ×3 (08:57→20:05)
[2020-05-24] MEDS: CEPHULAC PO PRN (09:05)
--- NOTE | 2020-05-24 09:14 | NUR ---
PT PT AMBULATING WITH PATIENT IN DAY ROOM, NO S/S OF DISTRESS NOTED. x1 ASSIST AT THIS TIME WITH USE OF GAIT BELT AND WALKER.
--- NOTE | 2020-05-24 14:09 | NUR ---
TELEMED PT WAS SEEN BY Ana DICKINSON DNP. NO NEW ORDERS RECEIVED AT THIS TIME.
--- NOTE | 2020-05-24 14:18 | PRM.PN ---
Mood: PLEASEANT TODAY Sleep: SLEPT 8.75 HOURS Appetite: GOOD Suidical thoughts: DENIES Homicidal thoughts: DENIES Recent stressors: HEALTH STRESSORS Family support: GOOD Aggressive Behavior: AGGRESSIVE YESTERDAY, PLEASEN TODAY Ability to Perform ADL'sc: ASSISTANCE NEEDED. Psychotic sympstoms: AH/VH Manic Symptoms: NONE Living situation: WITH SPOUSE Illicit Drug usec: NONE Alcoholo use: NONE Tobacco use: NONE Family,PT,Surgical,&Current HX: (1) Dementia (2) Delusional disorder Anxity Symptoms: DENIES Anger/Irritablility: YESTERDAY, NONE TODAY. Muscle Strength & Tone: WNL Gait & Station: Ataxic Appearance: Well groomed/hygience, Casual attire, Appears age stated Attitude & Behaviour: Cooperative/Pleasant, Good eye contact Mood & Affect: Euthymic/appr/congruent Orientation: Disoriented to person, Disoriented to place, Disoriented to time, Disoriented to situation Attention/Concentration: Fair attention, Fair concentration Judgement/Insight: Poor judgement, Poor insight Thought Process: Loose Language: Emirati Thought content/Abnormal/Psych: A/V [place] Fund of Knowledge: Other (LIMITED) Associations: CHELA Memory (recent and remote): Recent memory repaired, Remote memory repaired Constitutional: None Neurological: None Psychiatric: None [place] I: DELUSIONAL DISORDER [place] II: DEFERRED [place] III: SEE MEDICAL CHART [place] IV: DECLINE IN HEALTH [place] V: 35 Assessment/Plan Assessment/Plan Assessment/Plan Vital Signs Date Time Temp Pulse Resp B/P (MAP) Pulse Ox O2 Delivery O2 Flow Rate FiO2 05/24/20 08:56 71 141/78 05/24/20 07:45 97.4 18 94 Room Air Allergies Coded Allergies Type Severity Reaction Last Updated Verified No Known Drug Allergies Allergy Unknown 05/14/20 Yes Current Medications Medications (Trade) Dose Ordered Sig/Power PRN Reason Start Time Stop Time Status Last Admin Doxepin HCl (Sinequin) 10 mg HS 05/21/20 21:00 06/20/20 20:59 05/23/20 20:17 Risperidone (Risperdal) 1 mg DAILY 05/24/20 09:00 06/23/20 08:59 05/24/20 08:57 Risperidone (Risperdal) 2 mg HS 05/23/20 21:00 06/22/20 20:59 05/23/20 20:19 Intake and Output 05/24/20 07:00 Intake Total 911 ml Balance 911 ml Intake Oral 911 ml # Voids 2 THE PATIENT WAS SEEN BY ABIOLA DICKINSON VIA TELEMEDICINE EQUIPMENT (SUPPORTED BY [facility]) ALONG WITH THE TREATMENT TEAM. HE HAS BEEN PLEASANT TODAY. HE IS SLEEPING WELL. APPETITE IS STABLE. HE IS TOLERATING HIS MEDICATIONS WELL. HE REPORTS FEELING DEPRESSED. HE DENIES SI/HI. HE REPORTS FEELING ANXIOUS. HE REPORTS AV/VH BUT IT IS UNCLEAR TO WHAT HE IS HEARING OR SEEING, HE WAS SEEN TALKING TO WHAT APPEARED TO BE A PET. HE IS STILL ON 1:1. HE RECEIVED HIS LAST PRN ON THE DAY SHIFT YESTERDAY. YESTERDAY RISPERDAL WAS INCREASED. HE IS TOLERATING IT WELL AND MOOD SEEMS TO BE BETTTER. ASSESSMENT: DELUSIONAL DISORDER PLAN: 1. CONTINUE BEHAVIORAL HEALTH MANAGEMENT. 2. CONTINUE CURRENT MEDICATIONS PRESCRIBED. STAFF AGREEABLE WITH PLAN 3. ALL PATIENT QUESTIONS ANSWERED RELATED TO MEDICATIONS, PLAN OF CARE, AND EXPECTED OUTCOMES. 4. SAFETY PLAN DISCUSSED. ABIOLA DICKINSON NP May 24, 2020 14:17
--- NOTE | 2020-05-24 18:26 | NUR ---
PIRP P: ALTERED THOUGHT PROCESS, ALTERATION IN MOOD, FALL RISK I: ASSESS FOR PSYCHOTIC SYMPTOMS, ASSESS REASONS FOR IRRITABILITY, GIVE CLEAR AND SIMPLE INSTRUCTIONS, 1:1 OBSERVATION, PROVIDE TASK-ORIENTED ACTIVITIES, MONITOR FOR CHANGES IN USUAL BEHAVIOR, REINFORCE FALL PREVENTION TECHNIQUES, REINFORCE PROPER USE OF EQUIPMENT, REDIRECT WITH VERBALIZATION, GIVE MEDICATIONS ORDERED, RE-ORIENT TO SURROUNDINGS NEEDED, ALTERNATE REST/ACTIVITY R: PT HAS MOSTLY PLEASANT AFFECT THROUGHOUT SHIFT, BECOMES IRRITABLE AT TIMES. PT HAS NOT EXHIBITED THREATENING OR COMBATIVE BEHAVIORS, BUT HAS BECOME INCREASINGLY RESTLESS SHIFT HAS PROGRESSED. PT HAS BEEN ABLE TO BE REDIRECTED WITH VERBALIZATION. PT ALERT AND ORIENTED TO SELF, UNABLE TO ANSWER ASSESSMENT QUESTIONS APPROPRIATELY. HAS BEEN COOPERATIVE WITH ADLS, HAS TAKEN MEDICATIONS ORDERED, AND HAS PARTICIPATED IN SOME GROUP ACTIVITIES WITH PROMPTING AND SIMPLE INSTRUCTION. INITIATES INTERACTION WITH STAFF AND PEERS. P: REINFORCE RELAXATION TECHNIQUES, RE-ORIENT TO SURROUNDINGS NEEDED, REINFORCE FALL PREVENTION EDUCATION
[2020-05-24 19:35] VITALS: BP 111/70
[2020-05-24] MEDS: SINEQUIN PO SCH (20:06)
[2020-05-24] MEDS: LIPITOR PO SCH (20:06)
[2020-05-24] MEDS: CARDURA PO SCH (20:06)
--- NOTE | 2020-05-25 05:48 | NUR ---
P.I.R.P. P. ALTERATION IN THOUGHT PROCESS. AGITATION/AGGRESSION I. PROVIDE EVERY 15 MINUTE CHECKS, PROVIDE 1:1 OBSERVATION DUE TO FALLS, UNSTEADY AND PATIENT DOES NOT KNOW HIS OWN WEAKNESSES OR LIMITATIONS WITH MOBILITY. PROVIDE SAFE ENVIRONMENT, PROVIDE MEDICATIONS ORDERED BY MD, PROVIDE 1:1 INTERVENTION TO ALLOW PATIENT TO EXPRESS FEELINGS, MONITOR FOR CHANGES IN MENTAL STATUS. RE ORIENT AND RE DIRECT NEEDED. PROVIDE TASK ORIENTED GROUP ACTIVITY AND ENCOURAGE PARTICIPATION. R. PATIENT ATTEMPTED SOCIALIZING WITH OTHERS, ATTEMPTED TO STAND UP FREQUENTLY, USES GAIT BELT FOR SAFETY. PATIENT TOOK ALL MEDS EXCEPT COLACE. 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 SPOUSE WAS IN TO SEE PATIENT AT BEGINNING OF SHIFT. P. CONTINUE CURRENT PLAN OF CARE Addendum: 05/25/20 at 0602 by KELLY MattsonBHDeandre LAURA SLEEP PATIENT HAS SLEPT 6.75 HOURS THIS SHIFT
[2020-05-25 07:55] VITALS: BP 117/67
--- NOTE | 2020-05-25 09:23 | NUR ---
NOTIFICATION PT BP THIS MORNING 117/67. PT IS TO GET COZAAR, LOPRESSOR, NORVASC. DR CARREON NOTIFIED OF BP AND ALL BP MEDS DUE. DR CARREON STATED "THEY SEEM TO BE WORKING FOR HIM, SO THAT'S OK." CLARIFIED THAT HE WANTED ALL THREE GIVEN AND HE SAID "YEAH, GO AHEAD".
[2020-05-25] MEDS: BUSPAR PO SCH ×3 (09:35→20:09)
[2020-05-25] MEDS: VIBRAMYCIN PO SCH (09:35)
[2020-05-25] MEDS: VITAMIN C PO SCH (09:35)
[2020-05-25] MEDS: VITAMIN D PO SCH (09:35)
[2020-05-25] MEDS: PLAVIX PO SCH (09:35)
[2020-05-25] MEDS: ASPIRIN EC PO SCH (09:35)
[2020-05-25] MEDS: RISPERDAL PO SCH ×2 (09:35→20:11)
[2020-05-25] MEDS: PROZAC PO SCH (09:35)
[2020-05-25] MEDS: COLACE PO SCH ×2 (09:35→20:20)
[2020-05-25] MEDS: LOPRESSER PO SCH ×2 (09:36→20:10)
[2020-05-25] MEDS: NORVASC PO SCH (09:36)
[2020-05-25] MEDS: COZAAR PO SCH (09:37)
--- NOTE | 2020-05-25 13:40 | NUR ---
TELEMED PT WAS SEEN BY Ana DICKINSON, SHIREEN, SNOW REMOVING SUPERVISOR. NO NEW ORDERS RECEIVED AT THIS TIME.
--- NOTE | 2020-05-25 13:44 | PRM.PN ---
Mood: REPORTS FEELING WELL, MOOD STABILIZING. Sleep: SLEPT 7.75 HOURS Appetite: GOOD Suidical thoughts: DENIES Homicidal thoughts: DENIES Recent stressors: COGNITIVE DECLINE Family support: GOOD Aggressive Behavior: RESTLESSNESS NOTED IN THE AFTERNOON, BUT HE IS REDIRECTABLE. Ability to Perform ADL'sc: ASSITANCE NEEDED Psychotic sympstoms: NOTED TO BE TALKING TO A DOG AT RANDOM TIMES Manic Symptoms: NONE NOTED Living situation: WITH SPOUSE Illicit Drug usec: NONE Alcoholo use: NONE Tobacco use: NONE Family,PT,Surgical,&Current HX: (1) Dementia (2) Delusional disorder Anxity Symptoms: NONE NOTED. DENIES Anger/Irritablility: DECREASED AGITATION OVER THE LAST FEW DAYS. Muscle Strength & Tone: WNL Gait & Station: Ataxic Appearance: Well groomed/hygience, Casual attire, Normal weight, Appears age stated Attitude & Behaviour: Cooperative/Pleasant Orientation: Disoriented to person, Disoriented to place, Disoriented to time, Disoriented to situation Attention/Concentration: Poor attention, Poor concentration Speech: Reg rate/vol/rhyth/prosod Judgement/Insight: Fair judgement, Poor insight Thought Process: Loose Language: Togolese Thought content/Abnormal/Psych: A/V [place] Fund of Knowledge: Other (LIMITED) Associations: CHELA Memory (recent and remote): Recent memory repaired Constitutional: None Neurological: None Psychiatric: None [place] I: DELUSIONAL DISORDER [place] II: DEFERRED [place] III: SEE MEDICAL CHART [place] IV: COGNITVE DECLINE [place] V: 40 Assessment/Plan Assessment/Plan Assessment/Plan Vital Signs Date Time Temp Pulse Resp B/P (MAP) Pulse Ox O2 Delivery O2 Flow Rate FiO2 05/25/20 09:37 117/67 05/25/20 09:36 70 05/25/20 07:55 97.7 20 94 Room Air Allergies Coded Allergies Type Severity Reaction Last Updated Verified No Known Drug Allergies Allergy Unknown 05/14/20 Yes Current Medications Medications (Trade) Dose Ordered Sig/Power PRN Reason Start Time Stop Time Status Last Admin Risperidone (Risperdal) 1 mg DAILY 05/24/20 09:00 06/23/20 08:59 05/25/20 09:35 Risperidone (Risperdal) 2 mg HS 05/23/20 21:00 06/22/20 20:59 05/24/20 20:06 Intake and Output 05/25/20 07:00 Intake Total 1029 ml Balance 1029 ml Intake Oral 1029 ml # Voids 1 # Bowel Movements 1 Problems Medical Problems: (1) Delusional disorder Status: Acute ICD Codes: F22 - Delusional disorders SNOMED: [id number] Responsible Provider: Malini Willard D.O., ER Problem Recorded: May 14, 2020 12:01 Last Edited By: Marlys Kay RN [facility] [place] on May 15, 2020 10:09 THE PATIENT WAS SEEN BY ABIOLA DICKINSON VIA TELEMEDICINE EQUIPMENT (SUPPORTED BY [facility]) ALONG WITH THE TREATMENT TEAM. HE HAS BEEN LESS COMBATIVE ON THE UNIT. HE NOT REQUIRED ANY PRN MEDICATION IN THE PAST 48 HOURS FOR AGITATION. HE OCCASIONALLY NEEDS PRN TYLENOL #3 FOR PAIN. HE IS SLEEPING AND EATING WELL. HE IS TOLERATING HIS MEDICATIONS WELL. IT HAS BEEN NOTED BY NURSING THAT HE TALKS TO WHAT APPEARS TO BE A DOGS OVER HIS SHOULDER. HE IS AMBULATING GELL WITH HIS WALKER. HE REPORTS BEING "ALRIGHT." HE CONTINUES TO BE CONFUSED ABOUT WHERE HE IS AND WHY HE IS THERE. ASSESSMENT: DELUSIONAL DISORDER PLAN: 1. CONTINUE BEHAVIORAL HEALTH MANAGEMENT. CONSIDER DISCHARGE EARLY NEXT WEEK DUE TO IMPROVEMENT. 2. CONTINUE CURRENT MEDICATIONS PRESCRIBED. STAFF AGREEABLE WITH PLAN 3. ALL PATIENT QUESTIONS ANSWERED RELATED TO MEDICATIONS, PLAN OF CARE, AND EXPECTED OUTCOMES. 4. SAFETY PLAN DISCUSSED. ABIOLA DICKINSON NP May 25, 2020 13:44
[2020-05-25] MEDS: TYLENOL #3 PO PRN (13:47)
--- NOTE | 2020-05-25 18:47 | NUR ---
PIRP P: ALTERED THOUGHT PROCESS, ALTERATION IN MOOD, FALL RISK I: ASSESS FOR PSYCHOTIC SYMPTOMS, GIVE CLEAR AND SIMPLE INSTRUCTIONS, 1:1 OBSERVATION, MONITOR FOR CHANGES IN USUAL BEHAVIOR, PROVIDE TASK-ORIENTED ACTIVITIES, REINFORCE FALL PREVENTION TECHNIQUES, REINFORCE PROPER USE OF EQUIPMENT, REINFORCE EDUCATION REGARDING MEDICATION COMPLIANCE, REDIRECT WITH VERBALIZATION, GIVE MEDICATIONS ORDERED, RE-ORIENT TO SURROUNDINGS NEEDED, ALTERNATE REST/ACTIVITY, DECREASE EXTERNAL STIMULI R: PT HAS MOSTLY PLEASANT, COOPERATIVE AFFECT THROUGHOUT SHIFT. HAS BEEN NOTED TO EXHIBIT AN INCREASE IN RESTLESSNESS AND CONFUSION STARTING AT APPROX 1700. PT HAS BECOME IRRITABLE AT TIMES WITH REDIRECTION, BUT HAS BEEN ABLE TO BE REDIRECTED WITH VERBALIZATION. PT IS UNABLE TO ANSWER ASSESSMENT QUESTIONS APPROPRIATELY, SPEECH IS DISORGANIZED, IS ALERT AND ORIENTED TO SELF. EXHIBITS VARYING DELUSIONS R/T CONFUSION, HAS BEEN NOTED TALKING TO SOMETHING/SOMEONE NOT THERE AT TIMES. PT REMAINS HIGH FALL RISK, REQUIRES 1:1 OBSERVATION D/T ATTEMPTS TO AMBULATE WITHOUT ASSISTANCE. REQUIRES REINFORCEMENT OF EDUCATION REGARDING PROPER USE OF EQUIPMENT. PT REQUIRED MULTIPLE ATTEMPTS TO ADMINISTER MEDICATIONS IN A.M., BUT DID ACCEPT TO TAKE MEDICATIONS AFTER THIS RN PROVIDED EDUCATION REGARDING IMPORTANCE OF MEDICATION COMPLIANCE. P: DECREASE EXTERNAL STIMULI, USE CALM APPROACH, ENCOURAGE PARTICIPATION IN GROUP ACTIVITIES
[2020-05-25 19:50] VITALS: BP 123/69
[2020-05-25] MEDS: LIPITOR PO SCH (20:08)
[2020-05-25] MEDS: CARDURA PO SCH (20:10)
[2020-05-25] MEDS: SINEQUIN PO SCH (20:12)
--- NOTE | 2020-05-25 21:00 | NUR ---
PAIN FOLLOW UP PATIENT REPORTS NO PAIN NOW AND DOES NOT WANT PAIN MED. NO PAIN MED GIVEN WITH HS MEDS.
--- NOTE | 2020-05-26 05:15 | NUR ---
P.I.R.P. P. ALTERATION IN THOUGHT PROCESS./AGGRESSION/AGITATION I. PROVIDE EVERY 15 MINUTE DOCUMENTATION/ PROVIDE 1:1 OBSERVATION FOR SAFETY DUE TO FALLS DUE TO POOR JUDGEMENT AND FREQUENT FALLS/UNSTEADY AND DOES NOT KNOW OWN LIMITS WITH MOBILITY AND SAFETY. PROVIDE SAFE/ SUPPORTIVE ENVIRONMENT. PROVIDE SCHEDULED AND NEEDED MEDICATIONS, PROVIDE TASK ORIENTED GROUP ACTVITY AND ENCOURAGE PARTICIPATION. RE ORIENT AND RE DIRECT NEEDED. R. PATIENT TOOK MEDS ORDERED, NO PRN MEDS THIS SHIFT, PATIENT HAD 1 EPISODE OF INAPPROPRIATE BEHAVIOR, PINCHED NURSE ON BREAST. REDIRECTING THAT THIS WAS INAPPROPRIATE AND NO FURTHER BEHAVIORS. PATIENT WAS RESTLESS IN EVENING BUT DID COMPLETE ACTIVITY WITH NURSE, USING MAGAZINE TO FIND OBJECTS ON PAGES. EXAMPLE WHERE IS THE CARROTS, CUCUMBERS ECT. PATIENT WAS ABLE TO PROPERLY IDENTIFY MOST PICTURES AND COUNT ITEMS. PATIENT HAS SLEPT 5 HOURS THUS FAR THIS SHIFT. PATIENT WAS NOTED WITH HALLUCINATIONS WHICH APPEARED TO INCREASE THE SUN WENT DOWN, MOSTLY TALKING TO DOGS AND LOOKING FOR HIS DOG MARKO. P. CONTINUE CURRENT PLAN OF CARE
[2020-05-26] MEDS: COLACE PO SCH ×2 (09:00→20:14)
[2020-05-26] MEDS: PROZAC PO SCH (09:00)
[2020-05-26] MEDS: LOPRESSER PO SCH ×2 (09:00→20:15)
[2020-05-26] MEDS: BUSPAR PO SCH ×3 (09:00→20:14)
[2020-05-26] MEDS: RISPERDAL PO SCH ×3 (09:00→20:14)
[2020-05-26] MEDS: VIBRAMYCIN PO SCH (09:00)
[2020-05-26] MEDS: ASPIRIN EC PO SCH (09:00)
[2020-05-26] MEDS: COZAAR PO SCH (09:00)
[2020-05-26] MEDS: VITAMIN D PO SCH (09:00)
[2020-05-26] MEDS: VITAMIN C PO SCH (09:00)
[2020-05-26] MEDS: PLAVIX PO SCH (09:00)
[2020-05-26] MEDS: NORVASC PO SCH (09:00)
[2020-05-26 10:13] VITALS: BP 155/86
[2020-05-26] MEDS: TYLENOL #3 PO PRN ×2 (10:19→20:14)
--- NOTE | 2020-05-26 13:38 | NUR ---
TELEMED PT WAS SEEN BY Ana DICKINSON, DNP, MUD ENGINEER. RECEIVED ORDERS TO START 1500 DOSE OF RISPERDAL, SEE EMR.
--- NOTE | 2020-05-26 13:47 | PRM.PN ---
Mood: IMPROVING Sleep: SLEPT 5.5 HOURS Appetite: GOOD Suidical thoughts: DENIES Homicidal thoughts: DENIES Recent stressors: COGNITIVE DECLINE Family support: GOOD Aggressive Behavior: DECREASING Ability to Perform ADL'sc: ASSISTANCE NEEDED Psychotic sympstoms: INCREASED ERSTLESSNESS AND APPEARS TO HAVE VH IN THE AFTERNOON. Manic Symptoms: NONE NOTED Living situation: WITH SPOUSE Illicit Drug usec: NONE Alcoholo use: NONE Tobacco use: NONE Family,PT,Surgical,&Current HX: (1) Delusional disorder (2) Dementia Anxity Symptoms: INCREASED RESTLESSNESS NOTED IN THE AFTERNOON. Anger/Irritablility: IMPROVING Muscle Strength & Tone: WNL Gait & Station: Ataxic Appearance: Well groomed/hygience, Casual attire, Appears age stated Attitude & Behaviour: Cooperative/Pleasant, Good eye contact Mood & Affect: Flat Orientation: Disoriented to place, Disoriented to time, Disoriented to situation Attention/Concentration: Fair attention, Poor concentration Speech: Reg rate/vol/rhyth/prosod Judgement/Insight: Poor judgement, Poor insight Thought Process: Loose Language: Chinese Thought content/Abnormal/Psych: A/V [place] Fund of Knowledge: Other Associations: CHELA Memory (recent and remote): Recent memory repaired, Remote memory repaired Constitutional: None Psychiatric: Psychosis [place] I: DELUSIONAL DISORDER [place] II: DEFERRED [place] III: SEE MEDICAL CHART [place] IV: COGNITIVE DECLINE [place] V: 40 Assessment/Plan Assessment/Plan Plan Vital Signs Date Time Temp Pulse Resp B/P (MAP) Pulse Ox O2 Delivery O2 Flow Rate FiO2 05/26/20 10:13 98.3 68 18 155/86 (109) 93 Room Air Allergies Coded Allergies Type Severity Reaction Last Updated Verified No Known Drug Allergies Allergy Unknown 05/14/20 Yes Current Medications Medications (Trade) Dose Ordered Sig/Power PRN Reason Start Time Stop Time Status Last Admin Docusate Sodium (Colace) 100 mg BID 05/26/20 09:00 06/25/20 08:59 05/26/20 09:00 Risperidone (Risperdal) 1 mg DAILY 05/24/20 09:00 06/23/20 08:59 05/26/20 09:00 Risperidone (Risperdal) 2 mg HS 05/23/20 21:00 06/22/20 20:59 05/25/20 20:11 Intake and Output 05/26/20 07:00 Intake Total 1782 ml Output Total 150 ml Balance 1632 ml Intake Oral 1782 ml Output Urine Total 150 ml # Voids 3 Problems Medical Problems: (1) Delusional disorder Status: Acute ICD Codes: F22 - Delusional disorders SNOMED: [id number] Responsible Provider: Malini Willard D.O., ER Problem Recorded: May 14, 2020 12:01 Last Edited By: Marlys Kay RN [facility] [place] on May 15, 2020 10:09 THE PATIENT WAS SEEN BY ABIOLA DICKINSON VIA TELEMEDICINE EQUIPMENT (SUPPORTED BY [facility]) ALONG WITH THE TREATMENT TEAM. HE REPORTS THAT HE IS DOING WELL OVERALL. HE CONTINUES TO HAVE INCREASED RESTLESSNESS IN THE AFTERNOON. IT IS NOT BAD IT HAS BEEN BUT AT TIMES HE IS NOT EASIY REDIRECTED. APPETITE IS STABLE. HE REPORTS HAVING A FAIR ENERGY LEVEL. HE IS TOLERATING HIS MEDICATIONS WELL. HE HAS NOT NEEDED A PRN SINCE 05/23/2020 BUT IT WAS POSSIBLY WARRANTED YESTERDAY. HE HAS NO ACUTE COMPLAINTS TODAY. HE IS STILL CONFUSED. ASSESSMENT: DELUSIONAL DISORDER PLAN: 1. CONTINUE BEHAVIORAL HEALTH MANAGEMENT. 2. CHANGE RISPERDAL TO 1MG AT 0900 AND 1500, AND 2MG AT HS. CONTINUE ALL OTHER CURRENT MEDICATIONS PRESCRIBED. STAFF AGREEABLE WITH PLAN. 3. ALL PATIENT QUESTIONS ANSWERED RELATED TO MEDICATIONS, PLAN OF CARE, AND EXPECTED OUTCOMES. 4. SAFETY PLAN DISCUSSED. ABIOLA DICKINSON NP May 26, 2020 13:47
--- NOTE | 2020-05-26 17:18 | NUR ---
PIRP P: ALTERED THOUGHT PROCESS, ALTERATION IN MOOD, FALL RISK I: ASSESS FOR PSYCHOTIC SYMPTOMS, REDIRECT WITH VERBALIZATION, GIVE CLEAR AND SIMPLE INSTRUCTIONS, 1:1 OBSERVATION, PROVIDE REALITY ORIENTATION, MONITOR FOR CHANGES IN USUAL BEHAVIOR, PROVIDE TASK-ORIENTED ACTIVITIES, REINFORCE FALL PREVENTION TECHNIQUES, GIVE MEDICATIONS ORDERED, REINFORCE EDUCATION REGARDING IMPORTANCE OF PREVENTING SKIN BREAKDOWN, RE-ORIENT TO SURROUNDINGS NEEDED, ALTERNATE REST/ACTIVITY, DECREASE EXTERNAL STIMULI R: PT HAS BEEN PLEASANT MAJORITY OF SHIFT, IS RESTLESS AT TIMES BUT HAS BEEN ABLE TO BE REDIRECTED. HAS NOT EXHIBITED THREATENING OR COMBATIVE BEHAVIORS. UNABLE TO ANSWER ASSESSMENT QUESTIONS APPROPRIATELY, BUT DOES ATTEMPT TO INITIATE INTERACTION WITH STAFF AND PEERS. SPEECH IS RAMBLED, PT REMAINS ALERT AND ORIENTED TO SELF. HAS ATTEMPTED TO PARTICIPATE IN SOME GROUP ACTIVITIES WITH PROMPTING AND INSTRUCTIONS. CONT TO EXHIBIT VARYING DELUSIONS R/T CONFUSION, HAS CONT TO BE NOTED TALKING/WHISTLING TO A DOG NOT THERE. ATTEMPTS TO REACH FOR THINGS NOT THERE AT TIMES. PT HAS TAKEN MEDICATIONS ORDERED, HAS BEEN COOPERATIVE WITH ADLS. P: RE-ORIENT TO REALITY/SURROUNDINGS NEEDED, USE CALM APPROACH
[2020-05-26 19:46] VITALS: BP 120/61
[2020-05-26] MEDS: LIPITOR PO SCH (20:14)
[2020-05-26] MEDS: SINEQUIN PO SCH (20:15)
[2020-05-26] MEDS: CARDURA PO SCH (20:15)
--- NOTE | 2020-05-27 02:02 | NUR ---
PIRP P- ALTERATION IN MOOD,ALTERED THOUGHT PROCESS AND FALL RISK. I- PROVIDE SAFE AND SUPPORTIVE ENVIRONMENT,PROVIDE MEDICATION ORDERED AND PROVIDE 1:1 AT ALL TIMES BY STAFF. REDIRECT NEEDED. R- PT. WAS UNABLE TO ANSWER ASSESSMENT QUESTIONS. ORIENTED TO NAME NOT MONTH OR YEAR. REMAINS 1:1 WITH STAFF AT ALL TIMES. ATTENDED GROUP,ATE SNACKS. PT. EXHIBITED HALLUCINATIONS TALKING TO SOMEONE NOT THERE AND A DOG. PICKING THINGS UP FROM THE FLOOR THAT WERE NOT THERE. RESTLESS AT TIMES BUT WAS REDIRECTABLE. TOOK MEDICATION ORDERED WITH ENCOURAGEMENT. PT. HAD PLEASANT AFFECT. ASSISTED PT. WITH HS CARE AND TO BED. PT. TOUCHED UPPER EXTREMITY SURGEON'S BREAST TWICE AND WAS REDIRECTED. WAS RESTLESS AT FIRST AND SAT ON THE BED BUT WITH REDIRECTION AND ENCOURAGEMENT PT. LAID DOWN IN BED AND IS RESTING WITH EYES CLOSED AT THIS TIME. PT. REMAIN FALL RISK. YELLOW SKID SOCKS IN USE AND BED IN LOW POSITION. PT. HAS NOT BEEN COMBATIVE TONIGHT. P- WILL CONTINUE TO PROVIDE 1:1 WITH PT. AT ALL TIMES. REDIRECT NEEDED.
[2020-05-27 07:40] VITALS: BP 145/75
[2020-05-27] MEDS: TYLENOL #3 PO PRN ×2 (08:16→19:13)
[2020-05-27] MEDS: LOPRESSER PO SCH ×2 (08:16→19:12)
[2020-05-27] MEDS: COZAAR PO SCH (08:17)
[2020-05-27] MEDS: NORVASC PO SCH (08:17)
[2020-05-27] MEDS: PROZAC PO SCH (08:18)
[2020-05-27] MEDS: PLAVIX PO SCH (08:18)
[2020-05-27] MEDS: VITAMIN D PO SCH (08:18)
[2020-05-27] MEDS: BUSPAR PO SCH ×3 (08:18→19:13)
[2020-05-27] MEDS: RISPERDAL PO SCH ×3 (08:18→19:12)
[2020-05-27] MEDS: ASPIRIN EC PO SCH (08:18)
[2020-05-27] MEDS: COLACE PO SCH ×2 (08:18→19:13)
[2020-05-27] MEDS: VITAMIN C PO SCH (08:18)
[2020-05-27] MEDS: VIBRAMYCIN PO SCH (08:18)
[2020-05-27] MEDS: ZYPREXA IM PRN (09:12)
--- NOTE | 2020-05-27 09:20 | NUR ---
PRN: PATIENT RESTLESS AND REFUSING MORNING MEDICATIONS. HE IS HALLUCINATING SEEING A DOG AND TALKING TO PEOPLE THAT ARE NOT THERE. DANIEL WAGNER SITTING WITH PATIENT. PATIENT TRYING TO STAND AND UNSTEADY AND GRABBING AT EVERYTHING ON TABLE. HE THEN GRABBED AT NURSES BREAST AND WAS UNABLE TO REDIRECT. ZYPREXA 10 MG IM GIVEN PRN FOR MENTIONED BEHAVIORS. PATIENT WAS SITTING IN WHEELCHAIR AND RECEIVED INJECTION WITHOUT ANY PROBLEMS.
--- NOTE | 2020-05-27 09:49 | PRM.PN ---
Mood: pleasant, confused, Sleep: 5.25 hours Appetite: good this morning Suidical thoughts: does not make statements Homicidal thoughts: does not make statements Recent stressors: not oriented Family support: and daughter call Aggressive Behavior: grabbing at stuff, mildly agitated, Ability to Perform ADL'sc: staff assist, often 2 Psychotic sympstoms: not oriented, reacting to internal Manic Symptoms: hyperactive, fall risk, confusion, state 1:1 Living situation: was at rehab Illicit Drug usec: na Alcoholo use: na Tobacco use: na Family,PT,Surgical,&Current HX: (1) Delusional disorder (2) Dementia Anxity Symptoms: not present at moment Anger/Irritablility: not redirectable, Muscle Strength & Tone: Rigidity Gait & Station: Ataxic Appearance: Well groomed/hygience Attitude & Behaviour: Uncooperative (but pleasant) Mood & Affect: Full Orientation: Disoriented to place, Disoriented to time, Disoriented to situation Attention/Concentration: Poor attention, Poor concentration Speech: Reg rate/vol/rhyth/prosod Judgement/Insight: Poor judgement, Poor insight Thought Process: Circumferential Language: Nicaraguan Thought content/Abnormal/Psych: Delusions Fund of Knowledge: WNL Associations: Other Constitutional: None Neurological: None Psychiatric: Psychosis (not oriented, not aware of evaluation today, distracted) [place] I: delusional disorder, dementia [place] IV: was rehab, family wants him home with healthcare Assessment/Plan Assessment/Plan Plan NURSING: doing child like things today; making noises will giggle, not understanding what to do with a drinking glass grabbed staff sexually inappropriate He did not take morning medications- he took the cup and rolled the pills in it, did not know what to do, he had been taking medications whole fall risk- 1:1 at current time, social: family wants him to be discharged to home with home healthcare assistance Ravin: "I love Jarred, he's a good man, always to work on time" then [place] grabbing at nurses papers, then grabbing at the camera not able to be redirected to evaluation, Vital Signs Date Time Temp Pulse Resp B/P (MAP) Pulse Ox O2 Delivery O2 Flow Rate FiO2 05/27/20 08:17 69 145/75 05/27/20 07:40 98.3 18 94 Room Air Allergies Coded Allergies Type Severity Reaction Last Updated Verified No Known Drug Allergies Allergy Unknown 05/14/20 Yes Current Medications Medications (Trade) Dose Ordered Sig/Power PRN Reason Start Time Stop Time Status Last Admin Docusate Sodium (Colace) 100 mg BID 05/26/20 09:00 06/25/20 08:59 05/27/20 08:18 Risperidone (Risperdal) 1 mg 0900,1500 05/26/20 15:00 06/23/20 08:59 05/27/20 08:18 PSYCHOTROPICS: DOXEPIN 10MG HS BUSPIRONE 7.5MG TID FLUOXETINE 20MG DAILY RISPERDAL TO 1MG AT 0900 AND 1500, AND 2MG AT HS. ZYPREXA PRN SUMMARY: Ravin is hyperactive, pulling at things in envrironment, previously could engage at least temporarily at camera although today appeared he was about to pull televideo monitor on himself CONSENT: Consent was obtained by patient for telemedicine visit. Consent was obtained for the presence of staff member throughout encounter. Privacy was maintained throughout encounter ASSESSMENT: DELUSIONAL DISORDER PLAN: 1. CONTINUE BEHAVIORAL HEALTH MANAGEMENT. 2. STOP FLUOXETINE, CAN BE ACTIVATING; CONTINUE ALL OTHER CURRENT MEDICATIONS PRESCRIBED. STAFF AGREEABLE WITH PLAN. 3. ALL PATIENT QUESTIONS ANSWERED RELATED TO MEDICATIONS, PLAN OF CARE, AND EXPECTED OUTCOMES. 4. SAFETY PLAN DISCUSSED. LUIS ARMANDO ALTAMIRANO NP May 27, 2020 09:49
--- NOTE | 2020-05-27 16:51 | NUR ---
PIRP: P; ALTERED THOUGHT PROCESS I: PROVIDE MEDICATIONS ORDERED BY PHYSICIANS. ENCOURAGE ATTENDANCE AND PARTICIPATION OF ALL GROUPS. ALLOW PATIENT TO VOICE FEELINGS AND CONCERNS. MONITOR PATIENT FOR S/S OF PSYCHOTIC SYMPTOMS. R: PATIENT DID NOT TAKE MEDICATIONS THIS MORNING AND REQUIRED A PRN ZYPREXA 10 MG IM. HE LATER TOOK MEDS IN CHOCOLATE PUDDING.HE HAS BEEN CONFUSED, DISORIENTED, AND RESTLESS. HE REMAINS A 1:1 FOR HIGH RISK FALLS. HE HAS BEEN UP ALL DAY. P: CONTINUE CURRENT PLAN OF CARE. PROOOOOZAC DISCONTINUED TODAY.
[2020-05-27] MEDS: CARDURA PO SCH (19:11)
[2020-05-27] MEDS: SINEQUIN PO SCH (19:11)
[2020-05-27] MEDS: LIPITOR PO SCH (19:12)
[2020-05-27 19:25] VITALS: BP 143/84
--- NOTE | 2020-05-28 04:52 | NUR ---
PIRP- P- ALTERED THOUGHT PROCESS I- PROVIDE MEDICATION ORDERED,REDIRECT NEEDED,PROVIDE SAFE AND SUPPORTIVE ENVIRONMENT AND 1:1 WITH STAFF AT ALL TIMES. R- PT. ORIENTED TO NAME NOT MONTH OR YEAR. PT. UNABLE TO ANSWER ASSESSMENT QUESTIONS. EXHIBITED HALLUCINATIONS. TALKING TO SOMEONE NOT THERE AND ATTEMPTING TO INTERIOR SPECIALIST THINGS ON THE FLOOR THAT WERE NOT THERE. RAMBLING WITH [employer]. ATTENDED GROUP BUT DID NOT PARTICIPATE. RESTLESS AND HARD TO REDIRECT AT TIMES. PT. GRABBED AT NEEDLE MOLDER'S AND BILINGUAL MEDICAL ASSISTANT'S BREAST, LEG AND REQUIRED REDIRECTING.TOOK MEDICATION ORDERED WITH ENCOURAGEMENT. ATE SNACK AND DRANK FLUIDS. REMAINS 1:1 WITH STAFF AT ALL TIMES. ASSISTED PT. WITH HS CARE AND TO BED. PT. ATTEMPTED TO HIT AND KICK STAFF WHILE ADLS WERE COMPLETED. REMAINS HIGH FALL RISK. WEARING YELLOW NON SKID SOCKS AND BED IN LOW POSITION. P- WILL CONTINUE TO PROVIDE 1:1 WITH STAFF AT ALL TIMES. WILL PROVIDE 1:1 INTERVENTION ALLOWING PT. TO EXPRESS THOUGHTS AND FEELINGS.
[2020-05-28] MEDS: VITAMIN C PO SCH (08:58)
[2020-05-28] MEDS: BUSPAR PO SCH ×3 (08:58→20:20)
[2020-05-28] MEDS: COLACE PO SCH ×2 (08:58→20:30)
[2020-05-28] MEDS: VIBRAMYCIN PO SCH (08:59)
[2020-05-28] MEDS: ASPIRIN EC PO SCH (08:59)
[2020-05-28] MEDS: PLAVIX PO SCH (08:59)
[2020-05-28] MEDS: VITAMIN D PO SCH (08:59)
[2020-05-28] MEDS: RISPERDAL PO SCH ×3 (09:00→20:20)
[2020-05-28] MEDS: COZAAR PO SCH (09:00)
[2020-05-28] MEDS: LOPRESSER PO SCH ×2 (09:00→20:19)
[2020-05-28] MEDS: NORVASC PO SCH (09:00)
[2020-05-28 09:13] VITALS: BP 102/54
--- NOTE | 2020-05-28 09:15 | NUR ---
HELD MEDICATIONS: HELD BLOOD PRESSURE MEDICATIONS THIS MORNING D/T BP 102/54, P71 HELD METOPROLOL, NORVASC, [place]ARTAN
--- NOTE | 2020-05-28 10:26 | NUR ---
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 Signed: 06/04/20 at 1028 by PANTERA GARY STAFF PSYCHIATRIST -PT PT Addendum: 06/04/20 at 1029 by PANTERA GARY STAFF PSYCHIATRIST -PT PT Amended: Links added.
--- NOTE | 2020-05-28 13:43 | PRM.PN ---
Mood: fair, Sleep: 8 hours, does not recall Appetite: did well with proteins, fair, eats when hungry, snack 2 sandwiches Suidical thoughts: does not make statements Homicidal thoughts: does not make statements Recent stressors: being disoriented, Family support: and daughter, Aggressive Behavior: nods no, Ability to Perform ADL'sc: staff assist of 2 with cares, not always understanding commands Psychotic sympstoms: does not stay oriented, Manic Symptoms: restless, likes to get up, can sit awhile, then just stand Living situation: was at rehab, Illicit Drug usec: na Alcoholo use: na Tobacco use: na Family,PT,Surgical,&Current HX: (1) Dementia (2) Delusional disorder Anxity Symptoms: denies Anger/Irritablility: denies Muscle Strength & Tone: Rigidity Gait & Station: Ataxic Appearance: Well groomed/hygience Attitude & Behaviour: Cooperative/Pleasant Mood & Affect: Blunted Orientation: Disoriented to place, Disoriented to time, Disoriented to situation Attention/Concentration: Poor attention, Poor concentration Speech: Reg rate/vol/rhyth/prosod Judgement/Insight: Fair judgement, Poor insight Thought Process: Circumferential Language: Maltese Thought content/Abnormal/Psych: Delusions Fund of Knowledge: WNL Associations: Other Constitutional: None Neurological: None Psychiatric: Psychosis Mcrae Helena I: delusional disorder dementia Mcrae Helena III: hip fx and repair this year Mcrae Helena IV: family prefers he discharge home Assessment/Plan Assessment/Plan Plan NURSING: fall risk 1:1 allowed to sleep in, up at 6am, changed, and wanted to go back to bed took his morning medications got 10 hours of sleep he has not grabbed staff in sexual manner today, not making statements, social: family wants him to be discharged to home with home healthcare assistance Ravin: "wonderful, wonderful" yes ma'am to having lunch, 'very good" he is just talking about the new officer "the black boy" saying he needs to go and get dressed, like he needs to go to work does not know time or place can name his "Dora" knows his first and last name, knows his , says its 2006 Vital Signs Date Time Temp Pulse Resp B/P (MAP) Pulse Ox O2 Delivery O2 Flow Rate FiO2 05/28/20 09:13 97.5 71 18 102/54 (70) 99 Room Air Allergies Coded Allergies Type Severity Reaction Last Updated Verified No Known Drug Allergies Allergy Unknown 05/14/20 Yes Current Medications Medications (Trade) Dose Ordered Sig/Power PRN Reason Start Time Stop Time Status Last Admin Docusate Sodium (Colace) 100 mg BID 05/26/20 09:00 06/25/20 08:59 05/28/20 08:58 Risperidone (Risperdal) 1 mg 0900,1500 05/26/20 15:00 06/23/20 08:59 05/28/20 09:00 PSYCHOTROPICS: DOXEPIN 10MG HS BUSPIRONE 7.5MG TID FLUOXETINE 20MG DAILY RISPERDAL TO 1MG AT 0900 AND 1500, AND 2MG AT HS. 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 Consent was obtained for the presence of staff member throughout encounter. Privacy was maintained throughout encounter ASSESSMENT: DELUSIONAL DISORDER PLAN: 1. CONTINUE BEHAVIORAL HEALTH MANAGEMENT. 2. CONTINUE ALL OTHER CURRENT MEDICATIONS PRESCRIBED. STAFF AGREEABLE WITH PLAN. 3. ALL PATIENT QUESTIONS ANSWERED RELATED TO MEDICATIONS, PLAN OF CARE, AND EXPECTED OUTCOMES. 4. SAFETY PLAN DISCUSSED 5. BMP AND CBC TOMORROW MORNING LUIS ARMANDO ALTAMIRANO NP May 28, 2020 13:43
[2020-05-28] MEDS: TYLENOL #3 PO PRN ×2 (14:35→19:42)
--- NOTE | 2020-05-28 17:20 | NUR ---
PIRP: P; ALTERED THOUGHT PROCESS I: PROVIDE MEDICATIONS ORDERED BY PHYSICIANS. ENCOURAGE ATTENDANCE AND PARTICIPATION OF ALL GROUPS. ALLOW PATIENT TO VOICE FEELINGS AND CONCERNS. MONITOR PATIENT FOR S/S OF PSYCHOTIC SYMPTOMS. R: patient had low blood pressure this morning and did not receive norvasc, metoprolol, losartan. He has been calm today and has taken medications as ordered. Patient has walked with staff down hallway with gait belt in place. P: continue current plan of care.
[2020-05-28] MEDS: ZYPREXA ZYDIS SL PRN (19:26)
--- NOTE | 2020-05-28 19:30 | NUR ---
Behaviors pt.is exhibiting inappropriate behaviors at this time attempting to get up and ambulate without assistance and nurse attempting to help him and he attempts to shoo them off stating he can do it himiself, pt is very unpredictable,and is very restless actively hallucinting seeing a dog trying to get it, at this tme it is taking two nursing staff to assist pt. due to his unsteady gait and his behaviors, pt recieved Zyprexa 10 mg po at this time and cont to have nurse at his side pt does complain now that his hip is hurting him so RN states, give him something for pain pt recieved Tylenol #3 at 194 also will cont. to monitor pt.'s behavior and remain 1:1 with pt.
[2020-05-28 20:00] VITALS: BP 136/84
[2020-05-28] MEDS: CARDURA PO SCH (20:19)
[2020-05-28] MEDS: LIPITOR PO SCH (20:19)
[2020-05-28] MEDS: SINEQUIN PO SCH (20:20)
--- NOTE | 2020-05-29 05:41 | NUR ---
P.I.R.P. P. ALTERATION IN THOUGHT PROCESS I. PROVIDE EVERY 15 MINUTE DOCUMENTATION CHECKS, PROVIDE 1:1 OBSERVATION FOR SAFETY DUE TO HIGH RISK FOR FALLS. PROVIDE MEDICATIONS ORDERED PER MD, MONITOR FOR CHANGES IN MENTAT STATUS,, RE DIRECT NEEDED, RE ORIENT NEEDED, PROVIDE TASK ORIENTED GROUP ACTIVITY, PROVIDE 1:1 INTERACTION TO ALLOW PATIENT TO EXPRESS FEELINGS. R. PATIENT TOOK MEDS ORDERED, NO INAPPROPRIATE SEXUAL OR OTHER BEHAVIORS, WAS RESTLESS AND APPEARED ANXIOUS AT TIMES, UP AND DOWN FROM CHAIR , TRYING TO WALK WAS LOOKING AT BOTTOM OF TABLE IF HE HAD TO WORK ON IT. PASCUAL, SANG COLUMBA ASCENCIO, ATTEMPTED PARTICIPATION OF 1:1 GROUP, HAS SLEPT 8.75 HOURS THUS FAR THIS SHIFT. PRN ZYPREXA AND PRN ACETAMINOPHEN ADMINISTRATED. P. CONTINUE CURRENT PLAN OF CARE.
[2020-05-29 07:03] LABS: BASOPHIL # 0.1 10^3/uL (0.0-0.1); BASOPHIL % 0.9 % (0.0-0.2); EOSINOPHIL # 0.2 10^3/uL (0.0-0.2); EOSINOPHIL % 3.1 % (0.0-5.0); LYMPHOCYTES # 1.16 10^3/uL1 (1.0-4.8); LYMPHOCYTES % 21.4 % (24.0-44.0); MEAN CORP HGB 29.7 pg (26-34); MONOCYTES # 0.6 10^3/uL (0.3-0.8); MONOCYTES % 11.2 % (5.0-12.0); NEUTROPHIL # 3.4 10^3/uL (1.8-7.7); NEUTROPHILS % 63.4 % (41.0-85.0); PLATELET COUNT 145 10^3/uL (150-400); RED CELL DISTRIBUTION WIDTH 13.8 % (11.5-14.5)
[2020-05-29 07:14] LABS: CALCIUM 8.8 mg/dL (8.4-10.5); CARBON DIOXIDE 30.6 mmol/L (20.0-32)
[2020-05-29 08:34] VITALS: BP 150/81
[2020-05-29] MEDS: VITAMIN D PO SCH (09:04)
[2020-05-29] MEDS: VIBRAMYCIN PO SCH (09:04)
[2020-05-29] MEDS: ASPIRIN EC PO SCH (09:04)
[2020-05-29] MEDS: RISPERDAL PO SCH ×3 (09:04→20:37)
[2020-05-29] MEDS: VITAMIN C PO SCH (09:04)
[2020-05-29] MEDS: COLACE PO SCH ×2 (09:04→20:35)
[2020-05-29] MEDS: PLAVIX PO SCH (09:04)
[2020-05-29] MEDS: BUSPAR PO SCH ×3 (09:04→20:35)
[2020-05-29] MEDS: COZAAR PO SCH (09:05)
[2020-05-29] MEDS: NORVASC PO SCH (09:05)
[2020-05-29] MEDS: LOPRESSER PO SCH ×2 (09:05→20:36)
[2020-05-29] MEDS: TYLENOL #3 PO PRN (09:06)
--- NOTE | 2020-05-29 09:54 | PRM.PN ---
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 Family support: says saw last night, tim powell, says others going to dance Aggressive Behavior: denies Ability to Perform ADL'sc: staff assist mostly with 2, Psychotic sympstoms: reaching for items not there Manic Symptoms: he can sit still, some periods of restlessness, Living situation: discharge to home per request Illicit Drug usec: na Alcoholo use: na Tobacco use: na Family,PT,Surgical,&Current HX: (1) Dementia (2) Delusional disorder Anxity Symptoms: can be anxious when he things he needs to work, complete a task Anger/Irritablility: denies Muscle Strength & Tone: Rigidity Gait & Station: Ataxic Appearance: Well groomed/hygience Attitude & Behaviour: Cooperative/Pleasant Mood & Affect: Full Orientation: Disoriented to place, Disoriented to time, Disoriented to situation Attention/Concentration: Fair attention, Fair concentration Speech: Reg rate/vol/rhyth/prosod Judgement/Insight: Poor judgement, Poor insight Thought Process: Loose Language: French Thought content/Abnormal/Psych: A/V Mitchell, Delusions Fund of Knowledge: WNL Associations: Other Constitutional: None Neurological: None Psychiatric: Psychosis Jackpot I: delusional disorder, dementia Jackpot IV: prefers him home Assessment/Plan Assessment/Plan Plan NURSING: is coming today to work with PT, work on transfers and cares for her sexual innuendo, behaviors smacked nursing bottom today, flirty speech, at times still goes to kiss nurses on cheek when assisting him to stand, follow simple directions during cares, no improvements, easily gets over stimulated, does better with simple instruction, calm voice, social: family wants him to be discharged to home with home healthcare assistance Ravin: scrambled eggs, toast, talks of guards, and mama and daddy potts, is mama going to [employer] talks of this provider going to [employer], says his height 6'2" "got me out of a lot of fights" Laboratory Tests 05/29/20 06:57: White Blood Count 5.4, Red Blood Count 3.47L, Hemoglobin 10.3L, Hematocrit 32.8L , Mean Corpuscular Volume 94.5, Mean Corpuscular Hemoglobin 29.7, Mean Corpuscular Hemoglobin Concent 31.4L, Red Cell Distribution Width 13.8, Platelet Count 145L, Mean Platelet Volume 9.5, Neutrophils (%) (Auto) 63.4, Lymphocytes (%) (Auto) 21.4L, Monocytes (%) (Auto) 11.2, Neutrophils # (Auto) 3.4, Lymphocyt es # (Auto) 1.16, Monocytes # (Auto) 0.6, Absolute Immature Granulocyte (auto 0, Absolute Eosinophils (auto) 0.2, Immature Granulocytes % 0.00, Eosinophils % 3.1, Basophils % 0.9H, Basophils # 0.1, Sodium Level 142, Potassium Level 4.5, Chloride Level 107.0, Carbon Dioxide Level 30.6, Glucose Level 89, Blood Urea Nitrogen 36H, Creatinine 1.10, Calcium Level 8.8, Anion Gap 8.9, Estimated GFR () 78.5, Est GFR (CKD-EPI)(Non-Afr Bulgarian) 64.9, BUN/Creat inine Ratio 32.0 Vital Signs Date Time Temp Pulse Resp B/P (MAP) Pulse Ox O2 Delivery O2 Flow Rate FiO2 05/29/20 09:05 67 150/81 05/29/20 08:34 98.2 20 95 Room Air Allergies Coded Allergies Type Severity Reaction Last Updated Verified No Known Drug Allergies Allergy Unknown 05/14/20 Yes Current Medications Medications (Trade) Dose Ordered Sig/Power PRN Reason Start Time Stop Time Status Last Admin Risperidone (Risperdal) 1 mg 0900,1500 05/26/20 15:00 06/23/20 08:59 05/29/20 09:04 PSYCHOTROPICS: DOXEPIN 10MG HS BUSPIRONE 7.5MG TID RISPERDAL TO 1MG AT 0900 AND 1500, AND 2MG AT HS. ZYPREXA PRN FLUOXETINE 20MG DAILY stopped 05/27/2020 SUMMARY: Ravin is is not red faced, clean appearing skin today, not seeing rosacea, appearing calmer, able to sit still does not stay oriented, appears to bit flirty with this provider, wanting to see her at a "dance tonight" does not stay oriented, CONSENT: Consent was obtained by patient for telemedicine visit. Consent was obtained for the presence of staff member throughout encounter. Privacy was maintained throughout encounter ASSESSMENT: DELUSIONAL DISORDER PLAN: 1. CONTINUE BEHAVIORAL HEALTH MANAGEMENT. 2. CONTINUE ALL OTHER CURRENT MEDICATIONS PRESCRIBED. STAFF AGREEABLE WITH PLAN. 3. ALL PATIENT QUESTIONS ANSWERED RELATED TO MEDICATIONS, PLAN OF CARE, AND EXPECTED OUTCOMES. 4. SAFETY PLAN DISCUSSED 5. Would greatly appreciate hospitalist consult on whether antibiotic for rosacea can be stopped; is contributing to BUN elevation, platelets remain Low 6. If decides appropriate for Ravin to go to SNF; please obtain covid 19 swab as it will be requirement for admission to snf LUIS ARMANDO ALTAMIRANO NP May 29, 2020 09:54
--- NOTE | 2020-05-29 10:34 | NUR ---
TELEMED PT WAS SEEN BY Jose Manuel ALTAMIRANO NP NO NEW ORDERS RECEIVED AT THIS TIME.
[2020-05-29] MEDS ORDERED: WATER 20 ML ONE (14:59)
[2020-05-29] MEDS: ZYPREXA IM PRN (15:03)
--- NOTE | 2020-05-29 15:03 | NUR ---
PRN PT EXHIBITING PSYCHOMOTOR AGITATION WITH INCREASE IN PSYCHOTIC SYMPTOMS. PROPELLING SELF IN W/C IN HALLWAY AND INTO PT ROOM. YELLING OUT AT STAFF, "I'M GOING TO KILL YOU," "YOU BETTER GET OUT OF HERE OR I'M GOING TO CUT YOUR ASS," AND "IF YOU DON'T LEAVE RIGHT NOW I'M GOING TO WHOOP YOU." PT ATTEMPTING TO AMBULATE WITHOUT ASSIST, REFUSING TO ALLOW STAFF NEAR HIM, ATTEMPTING TO PINCH AND PUNCH AT STAFF. PT RESPONDING TO INTERNAL STIMULI, TALKING TO PEOPLE NOT THERE, SIGNALING AT PEOPLE NOT THERE. PT FIDGETING, REACHING FOR THINGS NOT THERE, FREQUENTLY REACHING DOWN TO THE FLOOR. PT HAS BEEN UNABLE TO BE REDIRECTED WITH VERBALIZATION, PRN ZYPREXA ADMINISTERED BY Cami RUIZ LVN.
--- NOTE | 2020-05-29 16:05 | NUR ---
FOLLOW UP PT CURRENTLY SITTING UP IN W/C IN ROOM. PSYCHOMOTOR AGITATION AND PSYCHOTIC BEHAVIORS HAVE DECREASED, BUT STILL PRESENT. NO LONGER THREATENING STAFF OR ATTEMPTING TO HIT/PINCH. APPEARS CALM, NO ACUTE DISTRESS NOTED AT THIS TIME.
--- NOTE | 2020-05-29 17:41 | NUR ---
PIRP P: ALTERED THOUGHT PROCESS, DTO, ALTERATION IN MOOD, FALL RISK I: ASSESS FOR PSYCHOTIC SYMPTOMS, ASSESS REASONS FOR ANGER/IRRITABILITY, REDIRECT WITH VERBALIZATION, GIVE CLEAR AND SIMPLE INSTRUCTIONS, RE-ORIENT TO REALITY/SURROUNDINGS NEEDED, 1:1 OBSERVATION, MONITOR FOR CHANGES IN USUAL BEHAVIOR, PROVIDE TASK-ORIENTED ACTIVITIES, REINFORCE FALL PREVENTION TECHNIQUES, REINFORCE EDUCATION REGARDING IMPORTANCE OF MEDICATION COMPLIANCE, GIVE MEDICATIONS ORDERED, ALTERNATE REST/ACTIVITY, DECREASE EXTERNAL STIMULI R: PT HAS BEEN RESTLESS MAJORITY OF SHIFT, BECOMES IRRITABLE AT TIMES WITH REDIRECTION. EXHIBITS DISORGANIZED SPEECH WITH LOOSE ASSOCIATIONS, HAS DIFFICULTY FOLLOWING SIMPLE INSTRUCTIONS. FREQUENTLY ATTEMPTS TO AMBULATE WITHOUT ASSISTANCE. HAS REQUIRED MULTIPLE ATTEMPTS BY STAFF FOR MEDICATION ADMINISTRATION D/T INABILITY TO FOLLOW INSTRUCTIONS, BUT HAS TAKEN MEDICATIONS ORDERED. HAS PARTICIPATED IN SOME GROUP ACTIVITIES WITH PROMPTING AND REDIRECTION, HAS BEEN COOPERATIVE WITH ADLS. DID EXHIBIT EPISODE OF INCREASED PSYCHOTIC SYMPTOMS AND RESTLESSNESS IN AFTERNOON THAT REQUIRED ADMIN OF PRN ZYPREXA. PT'S MET WITH PHYSICAL THERAPY IN A.M. TO OBSERVE HOW TO TRANSFER/AMBULATE PT APPROPRIATELY. P: PLANS FOR DISCHARGE ON 06/01/2020 AFTER HOME HEALTH AND PROVIDERS HAVE BEEN ESTABLISHED.
[2020-05-29 20:02] VITALS: BP 135/79
[2020-05-29] MEDS: SINEQUIN PO SCH (20:36)
[2020-05-29] MEDS: CARDURA PO SCH (20:37)
[2020-05-29] MEDS: LIPITOR PO SCH (20:37)
--- NOTE | 2020-05-29 21:30 | NUR ---
HOSPITALIST NOTIFIED DR UNDERWOOD, HOSPITALIST, NOTIFIED PATIENT NOTED WITH NEW ONSET NON PRODUCTIVE COUGH, ONLY OCCASIONAL, LUNGS CLEAR, NO SHORTNESS OF BREATH NOTIFIED OR VOICED, PATIENT DOES STATE "YES" WHEN ASKED IF HAS STUFFY HEAD OR NOSE. PATIENTS TEMP 98.1. NO NEW ORDERS REFERENCE COUGH, WILL CONTINUE TO MONITOR. ALSO PER SHIFT REPORT REPORT FROM VLADIMIR PATIENTS BUN CONTINUES ELEVATED, RESULT 36 TODAY, REVIEW PATIENT HAS BEEN ON DOXYCYCLINE PRIOR TO AND SINCE ADMIT 05/14/20 FOR ROSACEA AND CONCERN THIS MAY BE ELEVATING BUN. ORDER RECEIVED TO DISCONTINUE DOXYCYCLINE.
[2020-05-30] MEDS: TYLENOL #3 PO PRN (04:50)
--- NOTE | 2020-05-30 04:50 | NUR ---
PRN GIVEN TYLENOL #3 FOR PAIN. PT WOKE UP STATING THAT HE HURT. WHEN THIS NURSE TOUCHED THE LEFT KNEE PT HAD A CONSTANT GRIMACE AND STATED THAT IT HURT REALLY BAD.
--- NOTE | 2020-05-30 05:40 | NUR ---
FOLLOW UP PT IS ASLEEP WITH EYES CLOSED CHEST RISING AND FALLING TYLENOL #3 AFFECTIVE IN RELIEVING PAIN
--- NOTE | 2020-05-30 06:20 | NUR ---
P.I.R.P. P. ALTERATION IN THOUGHT PROCESS I. PROVIDE 1:1 OBSERVATION FOR SAFETY DUE TO HIGH RISK FOR FALLS , PROVIDE EVERY 15 MINUTE DOCUMENTATION CHECKS, . PROVIDE MEDICATIONS ORDERED PER MD, RE DIRECT NEEDED, RE ORIENT NEEDED, MONITOR FOR CHANGES IN MENTAL STATUS, PROVIDE TASK ORIENTED GROUP ACTIVITY, ENCOURAGE PARTICIPATION TO PATIENTS ABILITY, PROVIDE 1:1 INTERACTION TO ALLOW PATIENT TO EXPRESS FEELINGS. R. PATIENT TOOK MEDS ORDERED, RAMBLED AT TIMES, PLEASANT , ALLOWED CHAIR BATH AND SHAVE, PRN ACETAMINOPHEN ADMINISTERED THIS SHIFT. EFFECTIVE. NO INAPPROPRIATE BEHAVIORS. HALLUCINATIONS, TALKING TO DOGS, PICKING AT THINGS ON FLOOR UNSEEN BY OTHERS. P. CONTINUE CURRENT PLAN OF CARE.
[2020-05-30 07:48] VITALS: BP 163/81
[2020-05-30] MEDS: ASPIRIN EC PO SCH (08:39)
[2020-05-30] MEDS: NORVASC PO SCH (08:40)
[2020-05-30] MEDS: RISPERDAL PO SCH ×3 (08:40→20:26)
[2020-05-30] MEDS: COZAAR PO SCH (08:40)
[2020-05-30] MEDS: BUSPAR PO SCH ×3 (08:41→20:25)
[2020-05-30] MEDS: LOPRESSER PO SCH ×2 (08:41→20:27)
[2020-05-30] MEDS: VITAMIN C PO SCH (08:41)
[2020-05-30] MEDS: PLAVIX PO SCH (08:41)
[2020-05-30] MEDS: COLACE PO SCH ×2 (08:41→20:24)
[2020-05-30] MEDS: VITAMIN D PO SCH (08:41)
--- NOTE | 2020-05-30 10:21 | NUR ---
medication Pt took all the medication with 3 vanilla sandwich cookies by 1015. Pt tolerated well. Pt did not want to take the medication PO. Pt is now sitting in dayroom playing dominos with staff.
--- NOTE | 2020-05-30 10:50 | NUR ---
Follow Up Hospitalist Follow up call regarding previous notification evening 05/29/20 by Night RN Asya. Previous notification regarding new onset non productive cough, which was noted to be "occasional." Patient has not had more than an occasional cough this morning, Temp of 98.1, no congestion noted. Patient had recent CoVid 19 exposure, while on this unit due another patient who had tested positive and subsequently was transferred to the Medical/Surgical. Dr. Tran notified of the same, by this RN for follow up. No order at this time. Dr. Tran stated we would, "Swab" patient if "cough becomes persistent."
--- NOTE | 2020-05-30 14:28 | NUR ---
TELEMED PT WAS SEEN BY DR. MARIANO VIA TELEMED. RECEIVED ORDERS TO INCREASE 1500 DOSE OF RISPERDAL, SEE EMR.
--- NOTE | 2020-05-30 14:36 | PRM.PN ---
Mood: UP AND DOWN, CRYING SPELLS, LABILE AFFECT Sleep: SLEEPING WELL AT NIGHT, SLEPT AROUND 7 HOURS LAST NIGHT Appetite: NORMAL APPETITE, EATS ALL HIS MEALS Suidical thoughts: DENIES SUICIDAL THOUGHTS, HE REPORTS THAT HE DOES NOT WANT GOD TO BE MAD Homicidal thoughts: NONE REPORTED Recent stressors: STRESS OF MENTAL ILLNESS, CONFUSION Family support: IS SUPPORTIVE Aggressive Behavior: CAN HAVE AGGRESSIVE BEHAVAIOR, RECEIVED IM ZYPREXA YESTERDAY Ability to Perform ADL'sc: NEEDS ASSISTANCE Psychotic sympstoms: DELUSIONAL THINKING, HALLUCINATIONS, PARANOIA Manic Symptoms: MOOD SWINGS, LABILE AFFECT Living situation: WAS LIVING AT THE [facility] Illicit Drug usec: NONE REPORTED Alcoholo use: NONE REPORTED Tobacco use: NONE REPORTED Anxity Symptoms: MODERATE ANXIETY LEVEL Anger/Irritablility: PROBLEMS WITH ANGER AND IRRITABILITY Muscle Strength & Tone: WNL Gait & Station: Ataxic Appearance: Appears older, Well groomed/hygience, Casual attire, Normal weight Attitude & Behaviour: Uncooperative, Poor eye contact, Psychomotor agitation Mood & Affect: Iabile, Angry, Depressed Orientation: Disoriented to place, Disoriented to time, Disoriented to situation Attention/Concentration: Poor attention, Poor concentration Speech: Impaired Judgement/Insight: Poor judgement, Poor insight Thought Process: Loose, Tangential Language: Armenian Thought content/Abnormal/Psych: A/V Mitchell, Delusions Fund of Knowledge: Other Associations: CHELA Memory (recent and remote): Recent memory repaired, Remote memory repaired Constitutional: None Neurological: None Psychiatric: Depressed, Anxious, Psychosis, Crying [place] I: DELUSIONAL DISORDER, PSYCHOSIS, DEMENTIA WITH BEHAVIOR PROBLEMS [place] II: DEFERRED [place] III: REFER TO H [place] IV: STRESS OF MENTAL ILLNESS [place] V: GAF=30 Assessment/Plan Assessment/Plan Assessment/Plan Laboratory Tests 05/29/20 06:57: White Blood Count 5.4, Red Blood Count 3.47L, Hemoglobin 10.3L, Hematocrit 32.8L , Mean Corpuscular Volume 94.5, Mean Corpuscular Hemoglobin 29.7, Mean Corpuscular Hemoglobin Concent 31.4L, Red Cell Distribution Width 13.8, Platelet Count 145L, Mean Platelet Volume 9.5, Neutrophils (%) (Auto) 63.4, Lymphocytes (%) (Auto) 21.4L, Monocytes (%) (Auto) 11.2, Neutrophils # (Auto) 3.4, Lymphocy miranda # (Auto) 1.16, Monocytes # (Auto) 0.6, Absolute Immature Granulocyte (auto 0, Absolute Eosinophils (auto) 0.2, Immature Granulocytes % 0.00, Eosinophils % 3.1, Basophils % 0.9H, Basophils # 0.1, Sodium Level 142, Potassium Level 4.5, Chloride Level 107.0, Carbon Dioxide Level 30.6, Glucose Level 89, Blood Urea Nitrogen 36H, Creatinine 1.10, Calcium Level 8.8, Anion Gap 8.9, Estimated GFR () 78.5, Est GFR (CKD-EPI)(Non-Afr Citizen Of [place]) 64.9, BUN/Crea tinine Ratio 32.0 Vital Signs Date Time Temp Pulse Resp B/P (MAP) Pulse Ox O2 Delivery O2 Flow Rate FiO2 05/29/20 09:05 67 150/81 05/29/20 08:34 98.2 20 95 Room Air Allergies Coded Allergies Type Severity Reaction Last Updated Verified No Known Drug Allergies Allergy Unknown 05/14/20 Yes Current Medications Medications (Trade) Dose Ordered Sig/Power PRN Reason Start Time Stop Time Status Last Admin Risperidone (Risperdal) 1 mg 0900,1500 05/26/20 15:00 06/23/20 08:59 05/29/20 09:04 PSYCHOTROPICS: DOXEPIN 10MG HS BUSPIRONE 7.5MG TID RISPERDAL TO 1MG AT 0900 AND 1500, AND 2MG AT HS. ZYPREXA 10MG IM Q6 HOURS PRN PSYCHOSIS, RECEIVED YESTERDAY FLUOXETINE 20MG DAILY stopped ON 05/27/2020 THE PATIENT WAS SEEN BY DR. MARIANO VIA TELEMEDICINE ALONG WITH THE TREATMENT TEAM. THE PATIENT HAS BEEN TEARFUL DURING THE INTERVIEW TODAY. THE PATIENT HAS PROBLEMS WITH ANGER AND IRRITABILITY. THE PATIENT HAS DELUSIONAL THINKING. HE THINKS HIS IS SEEING ANOTHER MAN. THE PATIENT WAS COMBATIVE YESTERDAY. HE RECEIVED ZYPREXA 10MG IM YESTERDAY. THE PATIENT HAS PROBLEMS WITH VISUAL H ALLUCINATIONS PER STAFF. THE PATIENT HAS TAKEN MULTIPLE PSYCHOTROPIC MEDICATIONS IN THE PAST. THE PATIENT SLEPT 7.5 HOURS LAST NIGHT. THE PATIENT HAS BEEN EATING WELL. THE PATIENT DOES NOT PARTICIPATE IN GROUPS. THE PATIENT STRUGGLES WITH CONFUSION. ASSESSMENT: DELUSIONAL DISORDER (F22), GENERALIZED ANXIETY DISORDER (F41.1), PSYCHOSIS (F29) PLAN: 1. CONTINUE BEHAVIORAL HEALTH MANAGEMENT. 2. INCREASE RISPERDAL 1MG PO AT 9AM, 2MG PO AT 1500, AND 2MG PO QHS. CONTINUE ALL OTHER CURRENT MEDICATIONS PRESCRIBED. STAFF AGREEABLE WITH PLAN. 3. ALL PATIENT QUESTIONS ANSWERED RELATED TO MEDICATIONS, PLAN OF CARE, AND EXPECTED OUTCOMES. 4. SAFETY PLAN DISCUSSED 5. Would greatly appreciate hospitalist consult on whether antibiotic for rosacea can be stopped; is contributing to BUN elevation, platelets remain Low 6. If decides appropriate for Ravin to go to SNF; please obtain covid 19 swab as it will be requirement for admission to snf Problems: (1) Dementia Status: Chronic ICD Code: F03.90 - Unspecified dementia without behavioral disturbance SNOMED: 18845059 (2) Delusional disorder Status: Acute ICD Code: F22 - Delusional disorders SNOMED: 04444960 Plan NURSING: is coming today to work with PT, work on transfers and cares for her sexual innuendo, behaviors smacked nursing bottom today, flirty speech, at times still goes to kiss nurses on cheek when assisting him to stand, follow simple directions during cares, no improvements, easily gets over stimulated, does better with simple instruction, calm voice, social: family wants him to be discharged to home with home healthcare assistance Ravin: scrambled eggs, toast, talks of guards, and mama and dadpolina potts, is mama going to [employer] talks of this provider going to [employer], says his height 6'2" "got me out of a lot of fights" Laboratory Tests 05/29/20 06:57: White Blood Count 5.4, Red Blood Count 3.47L, Hemoglobin 10.3L, Hematocrit 32.8L , Mean Corpuscular Volume 94.5, Mean Corpuscular Hemoglobin 29.7, Mean Corpuscular Hemoglobin Concent 31.4L, Red Cell Distribution Width 13.8, Platelet Count 145L, Mean Platelet Volume 9.5, Neutrophils (%) (Auto) 63.4, Lymphocytes (%) (Auto) 21.4L, Monocytes (%) (Auto) 11.2, Neutrophils # (Auto) 3.4, Lymphocy miranda # (Auto) 1.16, Monocytes # (Auto) 0.6, Absolute Immature Granulocyte (auto 0, Absolute Eosinophils (auto) 0.2, Immature Granulocytes % 0.00, Eosinophils % 3.1, Basophils % 0.9H, Basophils # 0.1, Sodium Level 142, Potassium Level 4.5, Chloride Level 107.0, Carbon Dioxide Level 30.6, Glucose Level 89, Blood Urea Nitrogen 36H, Creatinine 1.10, Calcium Level 8.8, Anion Gap 8.9, Estimated GFR () 78.5, Est GFR (CKD-EPI)(Non-Afr Citizen Of [place]) 64.9, BUN/Crea tinine Ratio 32.0 Vital Signs Date Time Temp Pulse Resp B/P (MAP) Pulse Ox O2 Delivery O2 Flow Rate FiO2 05/29/20 09:05 67 150/81 05/29/20 08:34 98.2 20 95 Room Air Allergies Coded Allergies Type Severity Reaction Last Updated Verified No Known Drug Allergies Allergy Unknown 05/14/20 Yes Current Medications Medications (Trade) Dose Ordered Sig/Power PRN Reason Start Time Stop Time Status Last Admin Risperidone (Risperdal) 1 mg 0900,1500 05/26/20 15:00 06/23/20 08:59 05/29/20 09:04 PSYCHOTROPICS: DOXEPIN 10MG HS BUSPIRONE 7.5MG TID RISPERDAL TO 1MG AT 0900 AND 1500, AND 2MG AT HS. ZYPREXA PRN FLUOXETINE 20MG DAILY stopped 05/27/2020 SUMMARY: Ravin hernandez is not red faced, clean appearing skin today, not seeing rosacea, appearing calmer, able to sit still does not stay oriented, appears to bit flirty with this provider, wanting to see her at a "dance tonight" does not stay oriented, CONSENT: Consent was obtained by patient for telemedicine visit. Consent was obtained for the presence of staff member throughout encounter. Privacy was maintained throughout encounter ASSESSMENT: DELUSIONAL DISORDER PLAN: 1. CONTINUE BEHAVIORAL HEALTH MANAGEMENT. 2. CONTINUE ALL OTHER CURRENT MEDICATIONS PRESCRIBED. STAFF AGREEABLE WITH PLAN. 3. ALL PATIENT QUESTIONS ANSWERED RELATED TO MEDICATIONS, PLAN OF CARE, AND EXPECTED OUTCOMES. 4. SAFETY PLAN DISCUSSED 5. Would greatly appreciate hospitalist consult on whether antibiotic for rosacea can be stopped; is contributing to BUN elevation, platelets remain Low 6. If decides appropriate for Ravin to go to SNF; please obtain covid 19 swab as it will be requirement for admission to snf TIMA MARIANO IV, MD May 30, 2020 14:36
[2020-05-30] MEDS ORDERED: RISPERDAL PO ONE (16:00)
--- NOTE | 2020-05-30 17:43 | NUR ---
[facility] THIS RN SPOKE TO PHARMACY STAFF AT [facility] IN [place], [place] ([phone]) PER PATIENT'S 'S REQUEST. PHARMACY STAFF VERIFIED HAVING ENOUGH FOR 90 DAY SUPPLY OF ORDERED BUSPIRONE, AMLODIPINE, DOXEPIN, AND RISPERIDONE.
--- NOTE | 2020-05-30 17:58 | NUR ---
PIRP P: ALTERED THOUGHT PROCESS, DTO, ALTERATION IN MOOD, FALL RISK I: ASSESS FOR PSYCHOTIC SYMPTOMS, RE-ORIENT TO SURROUNDINGS, PROVIDE 1:1 TO ENCOURAGE EXPRESSION OF FEELINGS, 1:1 OBSERVATION, REINFORCE EDUCATION REGARDING FALL PREVENTION TECHNIQUES, ASSESS FOR DEPRESSION, ANXIETY, IRRITABILITY, GIVE CLEAR AND SIMPLE INSTRUCTIONS, REINFORCE APPROPRIATE BOUNDARIES, REINFORCE EDUCATION REGARDING MEDICATION COMPLIANCE, GIVE MEDICATION ORDERED, USE CALM REASSURING APPROACH, DECREASE EXTERNAL STIMULI, ASSIST WITH DIFFERENTIATING BETWEEN INTERNAL AND EXTERNAL REALITY, PROVIDE TASK ORIENTED ACTIVITIES. R: PT HAS HAD LABILE AFFECT THROUGHOUT SHIFT, BUT HAS BEEN PLEASANT WITH APPROACH. HE DENIED DEPRESSION BUT HAS BEEN NOTED TO BE TEARFUL THROUGHOUT SHIFT. PT STATED " I WISH IT WAS OVER I DON'T WANT GOD TO BE MAD AT ME ". PT HOWEVER HAS DENIED THOUGHTS OF WANTING TO HURT SELF. PT STATES " NO I WOULD NEVER HURT MYSELF." HAS BEEN RESTLESS AT TIMES, BUT HAS BEEN ABLE TO BE REDIRECTED WITH VERBALIZATION. PT HAS BEEN NOTED SPEAKING TO PEOPLE/ANIMALS NOT THERE. EXHIBITS VARYING DELUSIONS RELATED TO CONFUSION. EXHIBITS LOOSE ASSOCIATIONS AND DISORGANIZED SPEECH AT TIMES. PT FREQUENTLY ATTEMPTS TO AMBULATE WITHOUT ASSISTANCE, REMAINS 1:1 FOR SAFETY. PT HAS PARTICIPATED IN SOME GROUP ACTIVITIES WITH PROMPTING AND SIMPLE INSTRUCTION. PT HAS TAKEN MEDICATIONS ORDERED AFTER MULTIPLE ATTEMPTS. PT DIFFICULT TO REDIRECT IN AM WHEN BEING ASSISTED WITH ADLS, BUT HAS BEEN COOPERATIVE WITH TOILETING REMAINDER OF SHIFT. P: MIDDAY DOSE OF RISPERDAL INCREASED, SEE EMR.
[2020-05-30 19:41] VITALS: BP 146/87
--- NOTE | 2020-05-30 20:20 | NUR ---
BEHAVIORS PATIENT WITH INCREASED RESTLESSNESS , ATTEMPTING TO GET UP WITHOUT ASSIST MULTIPLE TIMES, LEANING DOWN TO LOOK UNDER TABLE , TALKING TO DOG MARKO,UNSEEN BY OTHERS, STARTING TO BANG ON TABLE, RAMBLING, DIFFICULT TO REDIRECT. PRN ZYPREXA TO BE GIVEN.
[2020-05-30] MEDS: ZYPREXA ZYDIS SL PRN (20:25)
[2020-05-30] MEDS: LIPITOR PO SCH (20:25)
[2020-05-30] MEDS: SINEQUIN PO SCH (20:25)
--- NOTE | 2020-05-30 20:25 | NUR ---
PRN ZYPREXA GIVEN TO PT FOR RESTLESSNESS. PT WAS TRYING TO STAND UP FROM WHEELCHAIR WITH OUT ASSISTANCE MULTIPLE TIMES. STAFF TRIED TO REDIRECT PT MULTIPLE TIMES WELL EDUCATING THE PT ON THE IMPORTANCE OF ASKING FOR HELP BEFORE STANDING.
[2020-05-30] MEDS: CARDURA PO SCH (20:26)
--- NOTE | 2020-05-30 21:25 | NUR ---
FOLLOW UP, PRN ZYPREXA PATIENT WITH DECREASED RESTLESSNESS, ZYPREXA AFFECTIVE.
--- NOTE | 2020-05-31 05:01 | NUR ---
P.I.R.P. P. ALTERATION IN THOUGHT PROCESS I. PROVIDE 1:1 OBSERVATION FOR SAFETY PATIENT HIGH RISK FOR FALLS AND HAS TO BE REDIRECTED FREQUENTLY FOR SAFETY. PROVIDE EVERY 15 MINUTE DOCUMENTATION, PROVIDE MEDICATIONS ORDERED PER MD, PROVIDE TASK ORIENTED GROUP ACTIVITIES AND ENCOURAGE PARTICIPATION. RE ORIENT AND REDIRECT NEEDED. MONITOR FOR CHANGES IN MENTAL STATUS. R. PATIENT TOOK MEDS ORDERED, REQUIRED PRN ZYPREXA X 1 THIS SHIFT THAT WAS WAS EFFECTIVE. PATIENT HAD DISORGANIZED SPEECH, RAMBLED AT TIMES. WANDERED WITH NURSE AT HIS SIDE FOR SAFETY. PATIENT HAS SLEPT 7.5 HOURS THIS SHIFT. NO INAPPROPRIATE SEXUAL BEHAVIORS, NO AGGRESSION,NO THREATENING THIS SHIFT. P. CONTINUE CURRENT PLAN OF CARE
[2020-05-31] MEDS: BUSPAR PO SCH ×2 (10:09→14:20)
[2020-05-31] MEDS: COLACE PO SCH ×2 (10:10→20:36)
[2020-05-31] MEDS: NORVASC PO SCH (10:10)
[2020-05-31] MEDS: VITAMIN C PO SCH (10:11)
[2020-05-31] MEDS: RISPERDAL PO SCH ×3 (10:11→20:36)
[2020-05-31] MEDS: VITAMIN D PO SCH (10:13)
[2020-05-31] MEDS: COZAAR PO SCH (10:13)
[2020-05-31] MEDS: ASPIRIN EC PO SCH (10:14)
[2020-05-31] MEDS: LOPRESSER PO SCH ×2 (10:14→20:37)
[2020-05-31] MEDS: PLAVIX PO SCH (10:14)
[2020-05-31] MEDS: TYLENOL #3 PO PRN (10:16)
[2020-05-31 10:39] VITALS: BP 130/78
--- NOTE | 2020-05-31 11:09 | NUR ---
follow up with Tylenol # 3 Pt walked in hallway with walker and staff assistance. Pt is now sitting in the day room participating in group with Mena also exercising his arms while playing the letter game. Pt denied any pain at this time.
--- NOTE | 2020-05-31 12:22 | NUR ---
FOLLOW UP THIS RN ATTEMPTED TO MAKE FOLLOW UP APPT WITH PT'S PCP, DR. DANGELO IN [place], [place]. UNABLE TO MAKE FOLLOW UP APPOINTMENT AT THIS TIME D/T CLINIC SYSTEM BEING DOWN. PT'S WILL NEED TO CALL WEDNESDAY OR SUNDAY 06/03-06/04 TO CALL AND SCHEDULE AN APPOINTMENT WITHIN 3 WEEKS. [facility] [address] [place] [address] PHONE #: [phone] FAX #: [phone]
[2020-05-31] MEDS: ZYPREXA ZYDIS SL PRN ×2 (16:32→23:04)
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
--- NOTE | 2020-05-31 16:48 | NUR ---
Behavior Patient restless, unable to recognize danger to self as evidenced by trying to get up on his own out of his chair. Nursing has been unable to reorient and redirect patient. Patient has been looking at "cats" and talking to them. Patient will not return Jenga blocks states, "this is my money!" Patient exhibiting mistrust of nursing. Zyprexa Zydis 10 mg given, for the delusional behavior.
[2020-05-31] MEDS ORDERED: OLAN5TAB5 SL (17:00)
[2020-05-31] MEDS ORDERED: DOXE10CA PO (17:00)
[2020-05-31] MEDS ORDERED: RISP1TAB45 PO ×2 (17:00)
[2020-05-31] MEDS ORDERED: ATIVAN ONE (17:29)
--- NOTE | 2020-05-31 17:35 | NUR ---
Notification Dr. Lacy notified of patient's increasing restlessness, hallucinating. Zyprexa ineffective. Order received for PRN Ativan.
--- NOTE | 2020-05-31 17:40 | NUR ---
TELEMED PT WAS SEEN BY Jose Manuel ALTAMIRANO NP. NEW ORDERS RECEIVED FOR D/C OF [place], PT TO START SCHEDULED DEPAKOTE, DISCHARGE ORDER REVERSED. SEE EMR.
--- NOTE | 2020-05-31 17:46 | NUR ---
Behavior Patient increasingly restless, hallucinating. Zyprexa ineffective, PRN Ativan 1 mg IM given.
[2020-05-31] MEDS ORDERED: ATIVAN IM PRN (18:00)
--- NOTE | 2020-05-31 18:20 | NUR ---
PIRP P: ALTERATION IN MOOD; ALTERATION IN THOUGHT PROCESS; RISK FOR FALLS; DTO I: PROVIDE MEDICATION ORDERED BY PHYSICIAN; PROVIDE 1:1 WITH STAFF AND Q 15 MINUTE MONITORING; REORIENT AND REDIRECT PATIENT NEEDED; PROVIDE ASSIST WITH ADLS; PROVIDE NUTRITION AND HYDRATION; ASSESS PATIENT FOR DELUSIONS, PARANOIA, SI/HI, DEPRESSION, ANXIETY; PROVIDE A SAFE SECURE ENVIRONMENT, PROVIDE APPROPRIATE ACTIVITIES FOR PATIENT ENCOURAGE PARTICIPATION; R: PATIENT TOOK ALL OF HIS MEDICATIONS; REQUIRED PRN MEDICATIONS FOR RESTLESSNESS AND HALLUCINATIONS, DENIED DEPRESSION, SI/HI; PATIENT ATTENDED AND PARTICIPATED IN MORNING GROUP ACTIVITIES, BECAME AGITATED THIS AFTERNOON, WAS NOT EASILY REDIRECTED OR REORIENTED; NOTED TO CALL STAFF MEMBERS BY OTHER NAMES OR CALLED OUT TO PEOPLE NOT PRESENT IN THE ROOM; ENVIRONMENT MONITORED CLOSELY, PATIENT TRIED NUMEROUS TIMES TO GET UP ON HIS OWN, EXPLANATIONS GIVEN REGARDING HIS RISK FOR FALL AND HIS RECENT HIP FRACTURE; PATIENT HAS HAD A GOOD APPETITE, FLUIDS OFFERED FREQUENTLY P: PATIENT DISCHARGE DELAYED AT LEAST THROUGH THE WEEKEND
--- NOTE | 2020-05-31 19:05 | NUR ---
Follow up After PRN Ativan, patient is calmer; not attempting to get up as frequently.
[2020-05-31 19:32] VITALS: BP 127/67
[2020-05-31] MEDS: LIPITOR PO SCH (20:37)
[2020-05-31] MEDS: CARDURA PO SCH (20:37)
[2020-05-31] MEDS: SINEQUIN PO SCH (20:38)
--- NOTE | 2020-05-31 23:04 | NUR ---
PRN ZYPREXA GIVEN TO PT FOR RESTLESSNESS AND PSYCHOSIS. PT WAS NOT ABLE TO BE REDIRECTED BY STAFF MEMBERS. PT WAS TRYING TO GET UP FROM THE BED WITH OUT ASSISTANCE WELL TALKING TO PEOPLE WHO WERE NOT IN THE ROOM. PT ALSO STATED THAT HE WAS PETTING HIS DOG THAT WAS NOT PRESENT. PT IS ALSO REACHING UP TRYING TO GRAB AN OBJECT THAT IS NOT THERE.
--- NOTE | 2020-06-01 00:04 | NUR ---
FOLLOW UP MEDICATION AFFECTIVE
--- NOTE | 2020-06-01 05:24 | NUR ---
PIRP- P- ALTERED THOUGHT PROCESS,DTO.ALTERATION IN MOOD AND RISK FOR FALLS I- PROVIDE SAFE AND SUPPORTIVE ENVIRONMENT, PROVIDE MEDICATION ORDERED AND 1:1 WITH STAFF AT ALL TIMES. R- PT. STATED ANOTHER MAN'S NAME WHEN ASKED WHAT WAS HIS NAME. PT. EXHIBITED HALLUCINATIONS,PICKING UP THINGS OFF THE FLOOR THAT WERE NOT THERE AND TALKING TO PEOPLE NOT THERE. PT. ATTEMPTED TO GET UP WITHOUT ASKING FOR ASSISTANCE AND REQUIRED FREQUENT REDIRECTION. REMAINS HIGH FALL RISK. TOOK MEDICATION ORDERED. ASSISTED PT. WITH HS CARE AND TO BED. PT. WAS RESTLESS. PT. CONTINUED TO EXHIBIT HALLUCINATIONS. RECEIVED ZYPREXA PO PRN PREVIOUSLY CHARTED. RESTING IN BED WITH EYES CLOSED AT THIS TIME. P- WILL CONTINUE TO PROVIDE 1:1 WITH PT. AT ALL TIMES.
--- NOTE | 2020-06-01 07:52 | NUR ---
Hospitalist Dr. Tran notified by this RN of potential need for UA. Order received to obtain UA, urine clean catch or straight cath if needed.
[2020-06-01] MEDS ORDERED: DEPAKOTE SPRINKLE PO SCH (09:00)
[2020-06-01] MEDS: PLAVIX PO SCH (09:00)
[2020-06-01] MEDS: COZAAR PO SCH (09:00)
--- NOTE | 2020-06-01 09:00 | NUR ---
UA Straight cath for UA. procedure explained to patient. Aseptic technique used. Patient tolerated procedure well.
[2020-06-01 10:00] VITALS: BP 144/75
[2020-06-01] MEDS: RISPERDAL PO SCH ×3 (10:26→20:35)
[2020-06-01 10:27] LABS: APPEARANCE,URINE CLEAR (CLEAR); BILIRUBIN,URINE NEGATIVE (NEGATIVE); UA COLOR YELLOW (YELLOW)
[2020-06-01] MEDS: ASPIRIN EC PO SCH (10:45)
[2020-06-01] MEDS: VITAMIN C PO SCH (10:45)
[2020-06-01] MEDS: LOPRESSER PO SCH ×2 (10:45→20:36)
[2020-06-01] MEDS: TYLENOL #3 PO PRN (10:46)
[2020-06-01] MEDS: VITAMIN D PO SCH (10:48)
[2020-06-01] MEDS: NORVASC PO SCH (10:48)
[2020-06-01] MEDS: COLACE PO SCH ×2 (10:54→20:35)
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
[2020-06-01] MEDS: DEPAKOTE SPRINKLE PO SCH (14:47)
--- NOTE | 2020-06-01 16:49 | NUR ---
PIRP P: ALTERED IN THOUGHT PROCESS; ALTERATION IN MOOD; DEMENTIA WITH BEHAVIOR DISTURBANCE, RISK FOR FALLS I: PROVIDE ALL MEDICATIONS ORDERED, EXPLAIN NEED AND PURPOSE; ASSESS PATIENT FOR ANXIETY AND RESTLESSNESS; SI/HI, DEPRESSION, SIGNS OF PSYCHOSIS; PROVIDE 1:1 WITH STAFF, Q 15 MINUTE MONITORING; PROVIDE A SAFE SECURE ENVIRONMENT; MONITOR PATIENT FOR TOILETING NEEDS; REDIRECT AND REORIENT FREQUENTLY; USE CALM DIRECT MANNER; PROVIDE ACTIVITIES TO KEEP PATIENT DISTRACTED, PROVIDE SKID PROOF FOOT WEAR; R: PATIENT RECEIVED TOOK MOST OF HIS MEDICATIONS, ALL OF HIS PSYCH MEDS; NOTED TO SEE AND TALK TO PEOPLE AND ANIMALS NOT PRESENT; PATIENT HAS HAD A STAFF MEMBER WITH HIM AT ALL TIMES, HAS REQUIRED 2 STAFF MEMBERS FOR HIS TOILETING NEEDS; HAS HAD NO PRN MEDICATIONS TODAY; HAS BEEN CALMER AND EASIER TO REDIRECT; q 15 MINUTE MONITORING LOGGED; PATIENT HAS BEEN RESTLESSNESS AT TIMES P: SEEN BY EMILIA ALTAMIRANO [place] VIA TELEMED; DEPAKOTE TIMES CHANGED FROM B.I.D. TO MORNING AND 1500 TO CIRCUMVENT AFTERNOON AGITATION; dC PLANNING FOR SAFE DISCHARGE
[2020-06-01 19:18] VITALS: BP 132/66
[2020-06-01] MEDS: SINEQUIN PO SCH (20:35)
[2020-06-01] MEDS: CARDURA PO SCH (20:36)
[2020-06-01] MEDS: LIPITOR PO SCH (20:36)
--- NOTE | 2020-06-02 02:15 | NUR ---
PIRP- P- ALTERATION IN THOUGHT PROCESS,ALTERATION IN MOOD, DTO AND RISK FOR FALLS I-PROVIDE 1:1 WITH STAFF AT ALL TIMES,PROVIDE MEDICATION ORDERED, PROVIDE SAFE AND SUPPORTIVE ENVIRONMENT. R- PT. REMAINS 1:1 WITH STAFF AT ALL TIMES THIS SHIFT.ATTENDED GROUP BUT DID NOT PARTICIPATE IN EXERCISE ACTIVITY OR WATCH THE [employer] MOVIE. PT. TALKED TO PEOPLE NOT THERE, ATTEMPTED TO GET UP WITHOUT ASKING FOR ASSISTANCE AND REQUIRED REDIRECTING. ATE SNACKS. TOOK MEDICATION ORDERED. ASSISTED PT. WITH HS CARE AND TO BED BY 3 STAFF. PT. DID NOT EXHIBIT AGGRESSION BUT DID EXHIBIT RESTLESSNESS. PT. HAS RESTED IN BED WITH EYES CLOSED FOR 1 HOUR OF THIS TIME TONIGHT. P- WILL CONTINUE TO PROVIDE 1:1 WITH STAFF AT ALL TIMES.
[2020-06-02] MEDS: DEPAKOTE SPRINKLE PO SCH ×3 (09:00→20:23)
[2020-06-02] MEDS: COZAAR PO SCH (09:00)
[2020-06-02] MEDS: COLACE PO SCH ×2 (09:00→20:24)
[2020-06-02] MEDS: NORVASC PO SCH (09:00)
[2020-06-02] MEDS: ASPIRIN EC PO SCH (09:00)
[2020-06-02] MEDS: VITAMIN D PO SCH (09:00)
[2020-06-02] MEDS: RISPERDAL PO SCH ×4 (09:00→20:22)
[2020-06-02] MEDS: VITAMIN C PO SCH (09:00)
[2020-06-02] MEDS: LOPRESSER PO SCH ×2 (09:00→20:22)
[2020-06-02] MEDS: PLAVIX PO SCH (09:00)
[2020-06-02 12:30] VITALS: BP 164/74
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
--- NOTE | 2020-06-02 17:37 | NUR ---
PIRP: P: ALTERED THOUGHT PROCESS I: PROVIDE MEDICATIONS ORDERED BY PHYSICIAN. ENCOURAGE ATTENDANCE AND PARTICIPATION OF ALL GROUPS. ALLOW PATIENT TO VOICE FEELINGS AND CONCERNS. PROVIDE SAFE ENVIRONMENT. MONITOR PATIENT FOR PSYCHOTIC SYMPTOMS, DEPRESSION, ANXIETY AND SUICIDAL IDEATION R: PATIENT MISSED ALL MORNING MEDICATIONS BECAUSE HE WAS SLEEPING. ANAHY ALTAMIRANO NOTIFIED. PATIENT HAS BEEN CALM AND COOPERATIVE. HE HAS NOT BEEN COMBATIVE. HE REMAINS A 1:1 FOR FALL. HE DID TAKE HIS AFTERNOON MEDICATIONS WITHOUT PROBLEMS. P: CONTINUE CURRENT PLAN OF CARE.
[2020-06-02 19:00] VITALS: BP 137/75
[2020-06-02] MEDS: LIPITOR PO SCH (20:23)
[2020-06-02] MEDS: CARDURA PO SCH (20:23)
[2020-06-02] MEDS: SINEQUIN PO SCH (20:23)
[2020-06-02] MEDS: ZYPREXA ZYDIS SL PRN (22:28)
[2020-06-02] MEDS: TYLENOL #3 PO PRN (22:29)
--- NOTE | 2020-06-02 22:30 | NUR ---
Behaviors pt has been exhibiting inappropriate behavior after he went to bed pt is actively hallucinating seein a dog, a man and a woman, states he sees a bear, several attempts are made to reorient pt without success, pt is talking about having a gun and calling out people names to come get him pt is attempting to get out of bed and gets a cramp in his leg, tylenol #3 given, pt. is very restless throwing the cover off of him stating that he is cold attempts to get up, not redirectable at all , pt received Doris Galeas for restlessness, pt remain 1:1
--- NOTE | 2020-06-03 00:55 | NUR ---
follow up on prn medication Pt. resting in bed with eyes closed at this time and no distress noted.
--- NOTE | 2020-06-03 04:44 | NUR ---
pirp- P- ALTERATION IN THOUGHT PROCESS AND ALTERATION IN MOOD AND FALL RISK I- PROVIDE MEDICATION ORDERED,PROVIDE SAFE AND SUPPORTIVE ENVIRONMENT, 1:1 WITH STAFF AT ALL TIMES. REDIRECT NEEDED. R- PT. DENIED DEPRESSION AND ANXIETY. EXHIBITED HALLUCINATIONS AT TIMES,TALKING TO AND SEEING PEOPLE AND ANIMALS NOT THERE. PT. ATTENDED GROUP,ATE SNACKS AND WATCH PARTS OF A FOOTBALL GAME. TOOK MEDICATION ORDERED. WAS ASSISTED BY STAFF TIMES TWO WITH CARE AND TO BED. PT. REMAINS HIGH FALL RISK AND CONTINUES TO BE 1:1 WITH STAFF AT ALL TIMES. PT. ATTEMPTS TO GET UP WITHOUT [id number] ASSISTANCE AND FREQUENTLY REQUIRES ASSISTANCE. PT. EXHIBITED DELUSIONS,FLIGHT OF IDEAS AND LOOSE ASSOCIATION WHEN TALKING. PT. HAS RESTED IN BED WITH EYES CLOSED FOR 2.25 HOURS OF THIS TIME THIS SHIFT. STAFF HAS ENCOURAGED PT. TO REST AND SLEEP WITHOUT SUCCESS. PT. HAS BEEN RESTLESS,SINGING AND TALKING TO PEOPLE NOT THERE. HARD TO REDIRECT AT TIMES. P- WILL CONTINUE TO PROVIDE 1:1 AT ALL TIMES BY STAFF.
[2020-06-03 07:52] LABS: BASOPHIL % 0.5 % (0.0-0.2); EOSINOPHIL # 0.2 10^3/uL (0.0-0.2); EOSINOPHIL % 2.6 % (0.0-5.0); LYMPHOCYTES # 1.01 10^3/uL1 (1.0-4.8); LYMPHOCYTES % 16.6 % (24.0-44.0); MONOCYTES # 0.7 10^3/uL (0.3-0.8); NEUTROPHIL # 4.2 10^3/uL (1.8-7.7); NEUTROPHILS % 68.1 % (41.0-85.0); RED CELL DISTRIBUTION WIDTH 13.5 % (11.5-14.5)
[2020-06-03 08:11] LABS: CALCIUM 8.4 mg/dL (8.4-10.5); CARBON DIOXIDE 29.9 mmol/L (20.0-32)
[2020-06-03 09:34] VITALS: BP 115/73
[2020-06-03] MEDS: NORVASC PO SCH (09:39)
[2020-06-03] MEDS: COZAAR PO SCH (09:40)
[2020-06-03] MEDS: RISPERDAL PO SCH ×3 (09:40→20:29)
[2020-06-03] MEDS: ASPIRIN EC PO SCH (09:40)
[2020-06-03] MEDS: PLAVIX PO SCH (09:40)
[2020-06-03] MEDS: COLACE PO SCH ×2 (09:40→20:24)
[2020-06-03] MEDS: VITAMIN D PO SCH (09:41)
[2020-06-03] MEDS: VITAMIN C PO SCH (09:41)
[2020-06-03] MEDS: LOPRESSER PO SCH ×2 (09:41→20:28)
[2020-06-03] MEDS: DEPAKOTE SPRINKLE PO SCH ×2 (12:34→20:24)
--- NOTE | 2020-06-03 15:55 | NUR ---
TELEMED PT WAS SEEN BY Jose Manuel ALTAMIRANO NP. RECEIVED ORDERS TO INCREASE SCHEDULED DOXEPIN, SEE EMR.
--- NOTE | 2020-06-03 16:01 | PRM.PN ---
Mood: more even, tearful x1 today Sleep: no naps, 2.5 hours Appetite: too good Suidical thoughts: does not make statements Homicidal thoughts: does not make statements of this nature Recent stressors: being on unit, Family support: Aggressive Behavior: only irritable with cares morning Ability to Perform ADL'sc: staff assist of 1-2 Psychotic sympstoms: responds to internal Manic Symptoms: restless, hyperactive mostly redirectable Living situation: was at rehab unit, Illicit Drug usec: na Alcoholo use: na Tobacco use: na Family,PT,Surgical,&Current HX: (1) Dementia (2) Delusional disorder Anxity Symptoms: not appearing anxious, yes restless Anger/Irritablility: only in the morning Muscle Strength & Tone: Rigidity Gait & Station: Ataxic Appearance: Well groomed/hygience Attitude & Behaviour: Cooperative/Pleasant, Uncooperative (with evaluation today he said "you can wipe my ass" ) Mood & Affect: Blunted Orientation: Disoriented to place, Disoriented to time, Disoriented to situation Attention/Concentration: Poor attention, Poor concentration Speech: Impaired (les mumbling of speech today ) Judgement/Insight: Poor judgement (tried to eat markers today), Poor insight Thought Process: Circumferential Language: Tanzanian Thought content/Abnormal/Psych: A/V [place], Delusions Fund of Knowledge: WNL Associations: Other Constitutional: None Neurological: None Psychiatric: Depressed (some tears, short lived, untriggered, ), Psychosis [place] I: dementia, delusional disorder [place] III: post hip fx and repair [place] IV: plans to take him home with homehealth Assessment/Plan Assessment/Plan Plan Nursing: slept 2.5 hours today: up most of the day, restless at times talking to people not there, talking to dogs that is on the ground, w/c he was brought outside, did not enjoy, he thought he needed to work on his w/c disoriented, mild combative with changing of his brief, following simple commands, having difficulty Laboratory Tests 06/03/20 07:45: White Blood Count 6.1, Red Blood Count 3.40L, Hemoglobin 10.2L, Hematocrit 32.0L , Mean Corpuscular Volume 94.1, Mean Corpuscular Hemoglobin 30.0, Mean Corpuscular Hemoglobin Concent 31.9L, Red Cell Distribution Width 13.5, Platelet Count 142L, Mean Platelet Volume 9.6, Neutrophils (%) (Auto) 68.1, Lymphocytes (%) (Auto) 16.6L, Monocytes (%) (Auto) 12.0, Neutrophils # (Auto) 4.2, Lymphocytes # (Auto) 1.01, Monocytes # (Auto) 0.7, Absolute Immature Granulocyte (auto 0.01, Absolute Eosinophils (auto) 0.2, Immature Granulocytes % 0.20, Eosinophils % 2.6, Basophils % 0.5H, Basophils # 0.0, Sodium Level 141, Potassium Level 4.7, Chloride Level 106.0, Carbon Dioxide Level 29.9, Anion Gap 9.8, Blood Urea Nitrogen 24H, Creatinine 1.18, Estimated GFR () 72.4, Est GFR (CKD-EPI)(Non-Afr [place]i) 59.9, BUN/Creatinine Ratio 20.0, Glucose Level 88, Calcium Level 8.4, Total Bilirubin 0.3, Aspartate Amino Transf (AST/SGOT) 25, Alanine Aminotransferase (ALT/SGPT) 28, Alkaline Phosphatase 160H , Total Protein 5.6L, Albumin 2.7L, Globulin 2.9, Valproic Acid (Depakene) Level 25L Vital Signs Date Time Temp Pulse Resp B/P (MAP) Pulse Ox O2 Delivery O2 Flow Rate FiO2 06/03/20 09:41 67 115/73 06/03/20 09:34 98.0 20 98 Room Air Allergies Coded Allergies Type Severity Reaction Last Updated Verified No Known Drug Allergies Allergy Unknown 05/14/20 Yes Current Medications Medications (Trade) Dose Ordered Sig/Power PRN Reason Start Time Stop Time Status Last Admin Divalproex Sodium (Depakote Sprinkle) 250 mg 1300,2100 06/02/20 14:00 06/28/20 21:00 06/03/20 12:34 Lorazepam (Ativan) 1 mg Q6HR PRN ANXIETY 05/31/20 18:00 06/30/20 17:59 05/31/20 17:30 Risperidone (Risperdal) 1 mg TID 06/02/20 14:00 06/30/20 08:59 06/03/20 14:14 PSYCHOTROPICS: DOXEPIN increase to 25mg daily at HS ativan PRN RISPERDAL reduce to 1mg tid ZYPREXA 10MG IM Q6 HOURS PRN PSYCHOSIS, RECEIVED YESTERDAY FLUOXETINE 20MG DAILY stopped ON 05/27/2020 stopped 05/31/2020 BUSPIRONE 7.5MG TID summary; Patient actually looked at televideo today, answered some of my questions, he did swear once but not physically aggressive, less mumbling on speech, some improvements, will have tears but shorter and less often then immediately after prozac stopped, HIs labs have not worsened since depakote started. Dr. Lacy reviewed case this morning . ASSESSMENT: DELUSIONAL DISORDER (F22), GENERALIZED ANXIETY DISORDER (F41.1), PSYCHOSIS (F29) CONSENT: Consent was obtained by patient for telemedicine visit. Consent was obtained for the presence of staff member throughout encounter. Privacy was maintained throughout encounter PLAN: 1. CONTINUE BEHAVIORAL HEALTH MANAGEMENT. prefers to keep him home with home healthcare, do feel he requires so much assist physical and delusional di sorder has continued, manager administration likely to fatigue and SNF would be recommended. 2. INCREASE DOXEPIN TO 25MG PO DAILY AT FOR SLEEP and DEPRESSION, CONTINUE CURRENT MEDICATIONS PRESCRIBED. STAFF AGREEABLE WITH PLAN 3. ALL PATIENT QUESTIONS ANSWERED RELATED TO MEDICATIONS, PLAN OF CARE, AND EXPECTED OUTCOMES. 4. SAFETY PLAN DISCUSSED. LUIS ARMANDO ALTAMIRANO NP Jun 03, 2020 16:01
--- NOTE | 2020-06-03 16:59 | NUR ---
PIRP P: ALTERED THOUGHT PROCESS, DTO, ALTERATION IN MOOD, FALL RISK I: ASSESS FOR PSYCHOTIC SYMPTOMS, ASSIST WITH DIFFERENTIATING BETWEEN INTERNAL AND EXTERNAL REALITY, RE-ORIENT TO SURROUNDINGS, PROVIDE 1:1 TO ENCOURAGE EXPRESSION OF FEELINGS, 1:1 OBSERVATION, REINFORCE EDUCATION REGARDING FALL PREVENTION TECHNIQUES, ASSESS FOR ANGER/IRRITABILITY, GIVE CLEAR AND SIMPLE INSTRUCTIONS, GIVE MEDICATION ORDERED, DECREASE EXTERNAL STIMULI, PROVIDE TASK ORIENTED ACTIVITIES, REINFORCE TOILETING SCHEDULE R: PT HAS MOSTLY PLEASANT AFFECT THROUGHOUT SHIFT, EXHIBITED BRIEF EPISODE OF ANGER/IRRITABILITY IN A.M. WHEN BEING ASSISTED WITH ADULT BRIEF CHANGE. PT HAS DIFFICULTY FOLLOWING SIMPLE INSTRUCTIONS D/T COGNITIVE IMPAIRMENT. EXHIBITS LOOSE ASSOCIATIONS AND DISORGANIZED SPEECH AT TIMES. ABLE TO ANSWER CLOSE-ENDED QUESTIONS APPROPRIATELY. DENIES FEELINGS OF DEPRESSION AND ANXIETY, HAS BEEN TEARFUL x1 DURING SHIFT, AND REMAINS RESTLESS DURING DAY. HAS TAKEN MEDICATIONS ORDERED, COOPERATIVE WITH ADLS. HAS PARTICIPATED IN SOME GROUP ACTIVITIES WITH PROMPTING AND INSTRUCTION. PT FREQUENTLY TALKS TO PEOPLE/ANIMALS NOT THERE, REACHING FOR THINGS ON FLOOR, FIDGETING WITH WHEELCHAIR. PT HAS BEEN ABLE TO BE REDIRECTED WITH VERBALIZATION. P: SCHEDULED DOXEPIN INCREASED, SEE EMR.
[2020-06-03 19:15] VITALS: BP 123/66
[2020-06-03] MEDS ORDERED: SINEQUIN ONE (20:18)
[2020-06-03] MEDS: CARDURA PO SCH (20:22)
[2020-06-03] MEDS: LIPITOR PO SCH (20:26)
[2020-06-03] MEDS: SINEQUIN PO SCH (20:29)
--- NOTE | 2020-06-04 05:37 | NUR ---
PIRP- P- DTO.ALTERED THOUGHT PROCESS AND FALL RISK I- PROVIDE SAFE AND SUPPORTIVE ENVIRONMENT,PROVIDE MEDICATION ORDERED,1:1 WITH PT. AT ALL TIMES. REDIRECT NEEDED. R- PT. DENIED DEPRESSION AND ANXIETY. AT TIMES PT. TALKED TO PEOPLE NOT THERE AT PICKED AT THE AIR. ATTENDED GROUP AND ATE SNACKS. PARTICIPATED IN SIMPLE GROUP ACTIVITY WITH ENCOURAGEMENT. ORIENTED TO NAME NOT MONTH OR YEAR. TOOK MEDICATION ORDERED. PLEASANT AFFECT BUT BECOMES AGITATED BRIEFLY WITH ADULT BRIEF CHANGE. PT. REQUIRED REDIRECTING.REMAINS FALL RISK AND CONTINUES TO REQUIRE 1:1 WITH STAFF AT ALL TIMES. PT. WEARING YELLOW NON-SKID SOCKS,BED IN LOW POSITION. PT. HAS RESTED WITH EYES CLOSED FOR 7 HOURS THIS SHIFT OF THIS TIME. P- WILL CONTINUE TO PROVIDE 1:1 WITH PT. AT ALL TIMES.
[2020-06-04 09:20] VITALS: BP 98/60
--- NOTE | 2020-06-04 09:28 | NUR ---
DR. MICHEL PEARSON NOTIFIED OF MANUAL BP OF 98/60 MMHG. RECEIVED ORDERS TO HOLD A.M. COZAAR, METOPROLOL, AND AMLODIPINE, AND RECHECK BP IN 1 HOUR.
[2020-06-04] MEDS: COZAAR PO SCH (09:30)
[2020-06-04] MEDS: NORVASC PO SCH (09:30)
[2020-06-04] MEDS: LOPRESSER PO SCH ×2 (09:30→20:51)
[2020-06-04] MEDS: ASPIRIN EC PO SCH (09:46)
[2020-06-04] MEDS: VITAMIN C PO SCH (09:46)
[2020-06-04] MEDS: PLAVIX PO SCH (09:46)
[2020-06-04] MEDS: RISPERDAL PO SCH ×3 (09:46→20:50)
[2020-06-04] MEDS: COLACE PO SCH ×2 (09:46→20:50)
[2020-06-04] MEDS: VITAMIN D PO SCH (09:47)
[2020-06-04 10:40] VITALS: BP 100/56
--- NOTE | 2020-06-04 10:40 | NUR ---
BP DR. PEARSON NOTIFIED OF MANUAL BP 100/56 MMHG. NO NEW ORDERS RECEIVED.
--- NOTE | 2020-06-04 11:05 | NUR ---
DR. MICHEL PEARSON HERE TO SEE PT, NEW ORDERS RECEIVED, SEE EMR.
--- NOTE | 2020-06-04 11:24 | NUR ---
ANIMAL HANDLER THIS RN SPOKE TO MICHELLE MCLEOD, ANIMAL HANDLER REGARDING PT FREQUENTLY CLEARING THROAT IN BETWEEN MEALS AND BETWEEN DRINKING. ANIMAL HANDLER IS UNABLE TO EVAL PT AT THIS TIME D/T CURRENT COVID RESTRICTIONS. IF PT STILL INPATIENT BY 06/06/2020, MAY BE ABLE TO BE EVALUATED AT THAT TIME. OTHERWISE, REPORTS THAT IF CONDITION DOES NOT APPEAR ACUTE, PT WOULD BE CANDIDATE FOR OUTPATIENT EVALUATION UPON DISCHARGE.
--- NOTE | 2020-06-04 11:58 | NUR ---
DISCHARGE PLANNING: JOSH FAXED CLINICAL TO [facility] PER PT'S REQUEST. JOSH SPOKE TO [place] WHOM STATED "AT THIS TIME WE HAVE NOT LTC BED. YOU CAN GO AHEAD AND SEND IT SO WE HAVE IT ON FILE, BUT AT THIS TIME WE ARE NOT ABLE TO TAKE HIM". JOSH REACHED OUT TO [place] [email or web address] AND SPOKE WITH GOYO. GOYO STATED SHE WOULD LOOK OVER THE CLINICAL AND STAFF IT BUT SHE BELIEVES THEY HAVE RECEIVED A REFERRAL ON HIM AND THE PAST AND THEY DECLINED. PT CURRENTLY PENDING ACCEPTANCE INTO [email or web address].
[2020-06-04] MEDS: DEPAKOTE SPRINKLE PO SCH ×2 (12:42→20:50)
--- NOTE | 2020-06-04 12:58 | PRM.PN ---
Mood: even Sleep: 7.5 hours then slept in- total of 9 hours Appetite: good Suidical thoughts: does not make statements Homicidal thoughts: does not make statements Recent stressors: not aware of his surroundings Family support: , daughter Aggressive Behavior: absent Ability to Perform ADL'sc: staff assist of 1-2 Psychotic sympstoms: less response to internal Manic Symptoms: some restless activites but able to put actual words on paper Living situation: discharge to snf Illicit Drug usec: na Alcoholo use: na Tobacco use: na Family,PT,Surgical,&Current HX: (1) Dementia (2) Delusional disorder Anxity Symptoms: not presenting with anxiety Anger/Irritablility: not present today Muscle Strength & Tone: Rigidity Gait & Station: Ataxic Appearance: Well groomed/hygience Attitude & Behaviour: Cooperative/Pleasant Mood & Affect: Full Orientation: Disoriented to place, Disoriented to time Attention/Concentration: Fair attention, Poor concentration (limited but improved) Speech: Impaired (can have a bit of mumbling echolalia by end of his sentence/paragraph) Judgement/Insight: Poor judgement, Poor insight Thought Process: Circumferential Language: Khmer Thought content/Abnormal/Psych: A/V Mitchell (appearing less, ), Delusions (is not steadily oriented, can believe he is back in his work days) Fund of Knowledge: [facility] Associations: Other Constitutional: None Neurological: None Psychiatric: Psychosis (less, ) Lula I: delusional disorder, dementia Lula III: post hip fx and surgical repair Lula IV: discharge to snf Assessment/Plan Assessment/Plan Plan Nursing: BP medication being held today due to lower bp, consult with speech, concern about coughing, he does clear his throat loudly, speech - not available for evaluation until related to covid 19 requirements- swallowing eval ok to do outpatient ordered chest x ray, ordered by medical sexually grabbing NOT present, will give a hug physical aggression- NOT present oriented- today was the first day- long while, stated being in [place], June of 2020, knew to look at the orientation board "big house" as place versus hospital, 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, he was able to write meaningful words on paper today social work: daughter is taking over and assisting her, - wants to bring home, she has help arranged in the home for the weekends and home health - After this report, we called "Dora" - "my family is concerned as well, family and I are working, My kids are afraid I cannot take him home" ie: trying to get medicaid- meeting with a assistant women's soccer coach, Laboratory Tests 06/03/20 07:45: White Blood Count 6.1, Red Blood Count 3.40L, Hemoglobin 10.2L, Hematocrit 32.0L , Mean Corpuscular Volume 94.1, Mean Corpuscular Hemoglobin 30.0, Mean Corpuscular Hemoglobin Concent 31.9L, Red Cell Distribution Width 13.5, Platelet Count 142L, Mean Platelet Volume 9.6, Neutrophils (%) (Auto) 68.1, Lymphocytes (%) (Auto) 16.6L, Monocytes (%) (Auto) 12.0, Neutrophils # (Auto) 4.2, Lymphocytes # (Auto) 1.01, Monocytes # (Auto) 0.7, Absolute Immature Granulocyte (auto 0.01, Absolute Eosinophils (auto) 0.2, Immature Granulocytes % 0.20, Eosinophils % 2.6, Basophils % 0.5H, Basophils # 0.0, Sodium Level 141, Potassium Level 4.7, Chloride Level 106.0, Carbon Dioxide Level 29.9, Anion Gap 9.8, Blood Urea Nitrogen 24H, Creatinine 1.18, Estimated GFR () 72.4, Est GFR (CKD-EPI)(Non-Afr Cook Islander) 59.9, BUN/Creatinine Ratio 20.0, Glucose Level 88, Calcium Level 8.4, Total Bilirubin 0.3, Aspartate Amino Transf (AST/SGOT) 25, Alanine Aminotransferase (ALT/SGPT) 28, Alkaline Phosphatase 160H , Total Protein 5.6L, Albumin 2.7L, Globulin 2.9, Valproic Acid (Depakene) Level 25L Vital Signs Date Time Temp Pulse Resp B/P (MAP) Pulse Ox O2 Delivery O2 Flow Rate FiO2 06/04/20 10:40 67 100/56 (71) 06/04/20 09:20 97.7 18 95 Room Air Allergies Coded Allergies Type Severity Reaction Last Updated Verified No Known Drug Allergies Allergy Unknown 05/14/20 Yes Current Medications Medications (Trade) Dose Ordered Sig/Power PRN Reason Start Time Stop Time Status Last Admin Divalproex Sodium (Depakote Sprinkle) 250 mg 1300,2100 06/02/20 14:00 06/28/20 21:00 06/04/20 12:42 Doxepin HCl (Sinequin) 25 mg HS 06/03/20 21:00 07/03/20 20:59 06/03/20 20:29 Risperidone (Risperdal) 1 mg TID 06/02/20 14:00 06/30/20 08:59 06/04/20 09:46 PSYCHOTROPICS: DOXEPIN 25mg daily at HS DEPAKOTE 250MG 1300, 2100 ativan PRN NOT USED SINCE 05/31/2020 RISPERDAL 1mg tid ZYPREXA 10MG IM Q6 HOURS PRN PSYCHOSIS last use 06/02/2020 at 2200 FLUOXETINE 20MG DAILY stopped ON 05/27/2020 stopped 05/31/2020 BUSPIRONE 7.5MG TID summary; Talked with today; she does feel stressed related to financial although she has help from her daughters and they are very concerned for her if she attempts to care for Ravin at home, they are working on a number of things to attempt to find funding for Ravin to be in SNF Ravin has been able to answer some orientation questions today as well as remembering he could look at the orientation board to read today's date. he was willing to look at the camera and answer questions today, pleasant, could tell me his 's name, appearing rested. Depakote has controlled aggression and sexual behaviors. Dr. Lacy reviewed case this morning . ASSESSMENT: DELUSIONAL DISORDER (F22), GENERALIZED ANXIETY DISORDER (F41.1), PSYCHOSIS (F29) CONSENT: Consent was obtained by patient for telemedicine visit. Consent was obtained for the presence of staff member throughout encounter. Privacy was maintained throughout encounter PLAN: 1. CONTINUE BEHAVIORAL HEALTH MANAGEMENT. DISCHARGE IN THE NEXT COUPLE OF DAYS TO SNF PENDING APPROVAL COVID 19 TEST BEING ORDERED NEGATIVE RESULTS GENERALLY NEEDED FOR SNF ADMISSION 2. CONTINUE CURRENT MEDICATIONS PRESCRIBED. STAFF AGREEABLE WITH PLAN 3. ALL PATIENT QUESTIONS ANSWERED RELATED TO MEDICATIONS, PLAN OF CARE, AND EXPECTED OUTCOMES. 4. SAFETY PLAN DISCUSSED. LUIS ARMANDO ALTAMIRANO NP Jun 04, 2020 12:58
--- NOTE | 2020-06-04 13:10 | NUR ---
TELEMED PT WAS SEEN BY Jose Manuel ALTAMIRANO NP. RECEIVED ORDERS FOR COVID-19 TEST FOR PLACEMENT IN LTC FACILITY.
--- NOTE | 2020-06-04 16:08 | NUR ---
NH DENIAL: GOYO WITH [employer] CALLED THIS WORKER AND STATED "UNFORTUNATELY WE ARE NOT GOING TO BE ABLE TO TAKE HIM OUR CORPORATE HAS DENIED". JOSH CALLED THE RESERVE PER PT'S 'S REQUEST AND JAYME LET THIS WORKER KNOW THEY WERE ASSISTED LIVING AND PRIVATE PAY. JOSH FAXED IT OVER BUT PT'S IS FINANCIALLY UNABLE TO PRIVATE PAY. PT'S AT THIS TIME JUST WANTS TO FIND PLACEMENT FOR PT IN [facility] AND HAS NO PREFERENCE. JOSH FAXED CLINICAL TO [facility]. PT IS CURRENTLY PENDING ACCEPTANCE TO [facility] AT THIS TIME.
--- NOTE | 2020-06-04 16:39 | PRM.PN ---
Progress Note Subjective Date: Jun 04, 2020 Time: 13:00 Physician Notes: Mentation doing well this am, no concerns from this perspective from staff. Patient denies dizziness, pain, agitation, SOB, chest pain or body aches. Nursing held BP meds due to somewhat soft BP, report no dizziness with walking and nml voiding. He has had a little bit of coughing with drinking but has taken in adequate amount of PO. Objective Review IO, Exams,& Results Problems Acute/Active Problems: (1) Delusional disorder Vital Signs Date Time Temp Pulse Resp B/P (MAP) Pulse Ox O2 Delivery O2 Flow Rate FiO2 06/04/20 10:40 67 100/56 (71) 06/04/20 09:20 97.7 18 95 Room Air Intake and Output 06/04/20 06:59 Intake Total 2112 ml Output Total 100 ml Balance 2011 ml Intake Oral 2112 ml Output Urine Total 100 ml # Voids 7 # Bowel Movements 1 Laboratory Tests Test 06/03/20 07:45 White Blood Count 6.1 10^3/uL Red Blood Count 3.40 10^6/uL Hemoglobin 10.2 g/dL Hematocrit 32.0 % Mean Corpuscular Volume 94.1 fL Mean Corpuscular Hemoglobin 30.0 pg Mean Corpuscular Hemoglobin Concent 31.9 g/dL Red Cell Distribution Width 13.5 % Platelet Count 142 10^3/uL Mean Platelet Volume 9.6 fL Neutrophils (%) (Auto) 68.1 % Lymphocytes (%) (Auto) 16.6 % Monocytes (%) (Auto) 12.0 % Neutrophils # (Auto) 4.2 10^3/uL Lymphocytes # (Auto) 1.01 10^3/uL1 Monocytes # (Auto) 0.7 10^3/uL Absolute Immature Granulocyte (auto 0.01 10^3 u/L Absolute Eosinophils (auto) 0.2 10^3/uL Immature Granulocytes % 0.20 % Eosinophils % 2.6 % Basophils % 0.5 % Basophils # 0.0 10^3/uL Sodium Level 141 mmol/L Potassium Level 4.7 mmol/L Chloride Level 106.0 mmol/L Carbon Dioxide Level 29.9 mmol/L Anion Gap 9.8 Blood Urea Nitrogen 24 mg/dL Creatinine 1.18 mg/dL Estimated GFR () 72.4 Est GFR (CKD-EPI)(Non-Afr Tanzanian) 59.9 BUN/Creatinine Ratio 20.0 Glucose Level 88 mg/dL Calcium Level 8.4 mg/dL Total Bilirubin 0.3 mg/dL Aspartate Amino Transf (AST/SGOT) 25 U/L Alanine Aminotransferase (ALT/SGPT) 28 U/L Alkaline Phosphatase 160 U/L Total Protein 5.6 g/dL Albumin 2.7 g/dL Globulin 2.9 Valproic Acid (Depakene) Level 25 ug/mL Current Medications Medications (Trade) Dose Ordered Sig/Power PRN Reason Start Time Stop Time Status Last Admin Divalproex Sodium (Depakote Sprinkle) 250 mg 1300,2100 06/02/20 14:00 06/28/20 21:00 06/04/20 12:42 Doxepin HCl (Sinequin) 25 mg HS 06/03/20 21:00 07/03/20 20:59 06/03/20 20:29 Risperidone (Risperdal) 1 mg TID 06/02/20 14:00 06/30/20 08:59 06/04/20 15:12 Orders - SD PEARSON E DO Thyroid Stimulating Horm(Ml) (06/05/20 05:00) Cbc W/O Diff (06/05/20 05:00) Xr Chest 1v (06/04/20 14:45) Miscellaneous (06/04/20 14:46) Heart: Regular rate Abdomen: Soft, No tenderness Lungs: Clear to auscultation Assessment & Plan: Problems/Diagnosis: (1) Delusional disorder ICD Code: F22 - Delusional disorders SNOMED: 49638761 Status: Acute (2) Rosacea ICD Code: L71.9 - Rosacea, unspecified SNOMED: 509910197 (3) Coronary artery disease ICD Code: I25.10 - Atherosclerotic heart disease of [place] coronary artery with out angina pectoris SNOMED: 53266823 (4) Essential hypertension ICD Code: I10 - Essential (primary) hypertension SNOMED: 24102568 (5) Dyslipidemia ICD Code: E78.5 - Hyperlipidemia, unspecified SNOMED: 889115213 (6) Dementia ICD Code: F03.90 - Unspecified dementia without behavioral disturbance SNOMED: 80498899 Status: Chronic Assessment Assessment/plan 1. Cough, mild and dry--associated with drinking liquids, suspect aspiration. - Apparently speech therapy is not available this week, aspiration precautions ordered and d/w nursing - Doubt aspiration pneumonitis given afebrile, cough dry, lungs clear and well appearing. Will obtain CXR and am CBC, but no need for abx at this point. 2. HLD, chronic, stable--continue lipitor 3. CAD, chronic, stable--cont asa, plavix, lipitor, holding parameters for losartan and BB 4. Rosacea--completed course of doxy. I would not provide any further rounds of meds for him, especially antibiotics, as this is very mild and does not appear to be bothering him. 5. Essential HTN--BP soft this am, held meds. BP has remained stable, doubt infection, afebrile and does not appear ill. - D/c amlodipine - VS q4h for the next day, call if abnormal. - Hold other antihypertensives if SBP < 110 or DBP < 70 6. Delusional disorder--mgmt as per psychiatry/primary team. 7. Elevated BUN--if urine output remains normal I would feel comfortable spacing BMPs to qweek, will defer to primary team per their comfort level Hospitalist available for any needs, thank you for this consult! Plan see A/P SD PEARSON DO Jun 04, 2020 16:39
--- NOTE | 2020-06-04 16:57 | NUR ---
PIRP P: ALTERED THOUGHT PROCESS, DTO, ALTERATION IN MOOD, FALL RISK I: ASSESS FOR PSYCHOTIC SYMPTOMS, ASSIST WITH DIFFERENTIATING BETWEEN INTERNAL AND EXTERNAL REALITY, PROVIDE 1:1 TO ENCOURAGE EXPRESSION OF FEELINGS, 1:1 OBSERVATION, REINFORCE EDUCATION REGARDING FALL PREVENTION TECHNIQUES, ASSESS REASONS FOR ANGER/IRRITABILITY, GIVE CLEAR AND SIMPLE INSTRUCTIONS, GIVE MEDICATION ORDERED, DECREASE EXTERNAL STIMULI, PROVIDE TASK ORIENTED ACTIVITIES R: PT HAS MOSTLY PLEASANT AFFECT THROUGHOUT SHIFT, DID BECOME IRRITABLE IN AFTERNOON R/T CONFUSION. HAS BEEN ABLE TO BE REDIRECTED WITH VERBALIZATION. HAS NOT EXHIBITED THREATENING OR COMBATIVE BEHAVIORS, HAS NOT EXHIBITED SEXUALLY INAPPROPRIATE BEHAVIORS. DOES ATTEMPT TO HUG STAFF AT TIMES WHEN BEING ASSISTED TO STANDING POSITION. SPEECH IS DISORGANIZED, RAMBLES AT TIMES. PT IS ALERT AND ORIENTED TO SELF AND PLACE. COOPERATIVE WITH ADLS, TAKES MEDICATIONS ORDERED. PT NOTED TO TALK TO PEOPLE NOT THERE AT TIMES, REACHES FOR THINGS NOT THERE. PT HAS AMBULATED NUNEZ FREQUENTLY WITH 1 PERSON ASSIST AND USE OF GAIT BELT AND WALKER. REQUIRES FREQUENT REINFORCEMENT OF APPROPRIATE USE OF EQUIPMENT. PT HAS PARTICIPATED IN GROUP ACTIVITIES WITH PROMPTING AND SIMPLE INSTRUCTION. P: PENDING ACCEPTANCE TO LTC FACILITY FOR DISCHARGE
--- NOTE | 2020-06-04 18:05 | DIREP ---
PROCEDURE:CHEST 1 VIEW COMPARISON:[facility], CR, XRAY CHEST SINGLE VW, 05/14/2020, 12:23 PM. INDICATIONS:aspiration FINDINGS: LUNGS/PLEURA:Mild left basilar consolidation. No effusion or pneumothorax noted. VASCULATURE:Mildly prominent pulmonary vasculature. CARDIAC:Normal. No cardiac silhouette abnormality or cardiomegaly. MEDIASTINUM:Tortuous aorta. Two lead cardiac pacemaker. BONES:Degenerative changes. OTHER:Negative. CONCLUSION:1. Left basilar consolidation, which may represent pneumonia proper clinical setting. 2. Mildly prominent pulmonary vasculature. Dictated by: Jose Manuel Pineda M.D. on 06/04/2020 at 06:01 PM
--- NOTE | 2020-06-04 19:00 | NUR ---
DR GARCÍA MARIANO SPOKE WITH SPOUSE VIA TELEMED REFERENCE HER DECISION TO PLACE PATIENT IN FACILITY.
[2020-06-04 19:15] VITALS: BP 162/84
[2020-06-04] MEDS: LIPITOR PO SCH (20:50)
[2020-06-04] MEDS: SINEQUIN PO SCH (20:50)
[2020-06-04] MEDS: CARDURA PO SCH (20:51)
[2020-06-04] MEDS: AUGMENTIN 875-125 TABLET PO SCH (20:51)
--- NOTE | 2020-06-04 22:00 | NUR ---
PULSE 72, BP 162/[address] PEARSON , MAY DISCONTINUE VITAL SIGNS Q 4 HOURS AND RESUME Q SHIFT VITAL SIGNS.
[2020-06-04] MEDS: ZYPREXA ZYDIS SL PRN (22:11)
[2020-06-04] MEDS: TYLENOL #3 PO PRN (22:12)
--- NOTE | 2020-06-04 22:12 | NUR ---
prn pain restlessness patient reastless anxious, unable to redirect, grimacing moaning also. prn zyprexa 10 mg sl and prn tylenol 3 administered .
--- NOTE | 2020-06-04 22:57 | NUR ---
prn zyprexa and prn tylenol 3 effective.
--- NOTE | 2020-06-04 23:00 | NUR ---
CONTACTED [facility] REFERENCE COVID 19 TEST, THIS TEST IS FOR PLACEMENT PURPOSES ONLY. PATIENT SLEEPING, TEST TO BE COLLECTED TOMORROW IN AM.
--- NOTE | 2020-06-05 05:51 | NUR ---
P.I.R.P. P. ALTERATION IN THOUGHT PROCESS I. PROVIDE EVERY 15 MINUTE DOCUMENTATION, PROVIDE 1:1 OBSERVATION FOR SAFETY DUE TO PATIENT FORGETS EASILY AND TRIES TO STAND AND IS UNSTEADY. PROVIDE MEDICATIONS ORDERED PER MD. REDIRECT NEEDED, RE ORIENT NEEDED, PROVIDE TASK ORIENTED GROUP ACTIVITY AND ENCOURAGE PARTICIPATION. PROVIDE CALM AND RE ASSURING/SAFE ENVIRONMENT. R. PATIENT TOOK MEDS ORDERED, PATIENT ATTENDED GROUP ACTIVITY AND ATTEMPTED TO COLOR OTHER PATIENT DID, PATIENT HAD RESTLESS EPISODE OF LEANING OVER, PICKING UP FURNITURE THEN WHEN IN BED CONTINUED RESTLESS, UNABLE TO REDIRECT, HAD FURROWED BROW AND MOANED AT TIMES. PRN ZYPREXA SUBLINGUAL AND PRN TYLENOL 3 ADMINISTERED THIS SHIFT. BOTH EFFECTIVE. PATIENT CONTINUES TO RAMBLE AT TIMES, CONFUSED, TALKING TO THINGS NOT SEEN BY OTHERS. P. CONTINUE CURRENT PLAN OF CARE. Addendum: 06/05/20 at 0617 by MELISSA Mattson RN PATIENT DID VOICE THE LORD WAS GOING TO BE COMING TO GET HIM . TALKED ABOUT HOPING HE GOES TO [facility], PRAYED OCCASIONALLY.
[2020-06-05 07:02] LABS: MEAN CORP HGB 30.2 pg (26-34); RED CELL DISTRIBUTION WIDTH 13.5 % (11.5-14.5)
[2020-06-05 08:00] VITALS: BP 136/73
[2020-06-05] MEDS: RISPERDAL PO SCH ×3 (08:08→20:51)
[2020-06-05] MEDS: CEPHULAC PO PRN (08:08)
[2020-06-05] MEDS: PLAVIX PO SCH (08:08)
[2020-06-05] MEDS: COLACE PO SCH ×3 (08:08→20:52)
[2020-06-05] MEDS: AUGMENTIN 875-125 TABLET PO SCH ×2 (08:08→20:51)
[2020-06-05] MEDS: VITAMIN C PO SCH (08:08)
[2020-06-05] MEDS: ASPIRIN EC PO SCH (08:08)
[2020-06-05] MEDS: VITAMIN D PO SCH (08:09)
[2020-06-05] MEDS: LOPRESSER PO SCH ×2 (08:09→20:51)
[2020-06-05] MEDS: TYLENOL #3 PO PRN (08:09)
[2020-06-05] MEDS: COZAAR PO SCH (08:10)
--- NOTE | 2020-06-05 10:00 | NUR ---
nasal swab: PATIENT TAKEN TO ROOM AND NASAL SWAB FOR COVID-19 PERFORMED. PATIENT HAD SLIGHT DISCOMFORT BUT TOLERATED WELL. AT APPROX 1020 SPECIMEN TAKEN TO LAB.
[2020-06-05 12:33] VITALS: BP 139/79
[2020-06-05] MEDS: DEPAKOTE SPRINKLE PO SCH ×4 (13:00→20:51)
--- NOTE | 2020-06-05 13:20 | PRM.PN ---
Mood: even, Sleep: 6 hours last night Appetite: did not eat lunch due to his napping Suidical thoughts: does not make statements Homicidal thoughts: does not make statements Recent stressors: medical change Family support: /daughters Aggressive Behavior: no physicall aggression, no sexual grabbing Ability to Perform ADL'sc: staff assist of 1-2 Psychotic sympstoms: stil responds to internal, try to feed dog, not actual Manic Symptoms: still 1:1 at times still tries to stand on his own Living situation: discharge to snf Illicit Drug usec: na Alcoholo use: na Tobacco use: na Anxity Symptoms: not today, resting Anger/Irritablility: denies Muscle Strength & Tone: Rigidity Gait & Station: Ataxic Appearance: Well groomed/hygience Attitude & Behaviour: Cooperative/Pleasant Mood & Affect: Blunted Orientation: Disoriented to place, Disoriented to time Attention/Concentration: Fair attention, Fair concentration Speech: Reg rate/vol/rhyth/prosod Judgement/Insight: Poor judgement, Poor insight Thought Process: Circumferential Language: Yi Thought content/Abnormal/Psych: A/V Mitchell, Delusions Fund of Knowledge: WNL Associations: Other Constitutional: None Neurological: None Psychiatric: Psychosis [place] I: dementia, delusional disorder [place] IV: discharge to snf Assessment/Plan Assessment/Plan Plan PLan of care for suspected aspiration femi hospitalist summary as of 06/04/2020 1. Cough, mild and dry--associated with drinking liquids, suspect aspiration. - Apparently speech therapy is not available this week, aspiration precautions ordered and d/w nursing - Doubt aspiration pneumonitis given afebrile, cough dry, lungs clear and well appearing. Will obtain CXR and am CBC, but no need for abx at this point. 2. HLD, chronic, stable--continue lipitor 3. CAD, chronic, stable--cont asa, plavix, lipitor, holding parameters for losartan and BB 4. Rosacea--completed course of doxy. I would not provide any further rounds of meds for him, especially antibiotics, as this is very mild and does not appear to be bothering him. 5. Essential HTN--BP soft this am, held meds. BP has remained stable, doubt infection, afebrile and does not appear ill. - D/c amlodipine - VS q4h for the next day, call if abnormal. - Hold other antihypertensives if SBP < 110 or DBP < 70 6. Delusional disorder--mgmt as per psychiatry/primary team. 7. Elevated BUN--if urine output remains normal I would feel comfortable spacing BMPs to qweek, will defer to primary team per their comfort level Nursing: Ravin received morning medications, he did not get depakote this afternoon as he was sleeping in his bed, he slept 6 hours last night, was awake at 6am, was up all day,started a nap shortly afternoon Laboratory Tests 06/05/20 06:45: White Blood Count 6.4, Red Blood Count 3.41L, Hemoglobin 10.3L, Hematocrit 32.3L , Mean Corpuscular Volume 94.7, Mean Corpuscular Hemoglobin 30.2, Mean Corpuscu lar Hemoglobin Concent 31.9L, Red Cell Distribution Width 13.5, Platelet Count 149L, Mean Platelet Volume 9.6, Thyroid Stimulating Hormone (TSH) 2.497 Vital Signs Date Time Temp Pulse Resp B/P (MAP) Pulse Ox O2 Delivery O2 Flow Rate FiO2 06/05/20 12:33 97.2 64 12 139/79 (99) 96 Room Air Allergies Coded Allergies Type Severity Reaction Last Updated Verified No Known Drug Allergies Allergy Unknown 05/14/20 Yes Current Medications Medications (Trade) Dose Ordered Sig/Power PRN Reason Start Time Stop Time Status Last Admin Amoxicillin/ Clavulanate Potassium (Augmentin 875-125 Tablet) 1 each BID 06/04/20 21:00 07/04/20 20:59 06/05/20 08:08 Divalproex Sodium (Depakote Sprinkle) 250 mg 1300,2100 06/02/20 14:00 06/28/20 21:00 06/04/20 20:50 Doxepin HCl (Sinequin) 25 mg HS 06/03/20 21:00 07/03/20 20:59 06/04/20 20:50 Risperidone (Risperdal) 1 mg TID 06/02/20 14:00 06/30/20 08:59 06/05/20 08:08 PSYCHOTROPICS: DOXEPIN 25mg daily at HS DEPAKOTE 250MG 1300, 2100 ativan PRN NOT USED SINCE 05/31/2020 RISPERDAL 1mg tid ZYPREXA 10MG IM Q6 HOURS PRN PSYCHOSIS last use 06/02/2020 at 2200 FLUOXETINE 20MG DAILY stopped ON 05/27/2020 stopped 05/31/2020 BUSPIRONE 7.5MG TID summary; He is arouseable but does appear more tired, likely secondary to new medical sx, Depakote has controlled aggression and sexual behaviors. ASSESSMENT: DELUSIONAL DISORDER (F22), GENERALIZED ANXIETY DISORDER (F41.1), PSYCHOSIS (F29) CONSENT: Consent was obtained by patient for telemedicine visit. Consent was obtained for the presence of staff member throughout encounter. Privacy was maintained throughout encounter PLAN: 1. CONTINUE BEHAVIORAL HEALTH MANAGEMENT. DISCHARGE WHEN APPROVED BY SNF 2. CONTINUE CURRENT MEDICATIONS PRESCRIBED. STAFF AGREEABLE WITH PLAN 3. ALL PATIENT QUESTIONS ANSWERED RELATED TO MEDICATIONS, PLAN OF CARE, AND EXPECTED OUTCOMES. 4. SAFETY PLAN DISCUSSED. LUIS ARMANDO ALTAMIRANO NP Jun 05, 2020 13:20
--- NOTE | 2020-06-05 14:11 | NUR ---
Hospitalist Dr. Adrian notified of patient's lower extremity edema and drowsiness. Will come see patient this afternoon.
--- NOTE | 2020-06-05 14:29 | NUR ---
depakote 1300 Depakote held for patient drowsiness/sleeping. Gabe Hearn DREDGE OR [facility] notified of the same.
--- NOTE | 2020-06-05 16:22 | NUR ---
PLACEMENT UPDATE: JOSH HAS NOT BEEN ABLE TO GET A HOLD OF GIANNI AT [facility] AND HAS CALLED NUMEROUS TIMES. SW FAXED IT TO [facility] AND VISITED WITH POWER WHOM STATED "WE WILL STAFF IT AND I WILL GET BACK TO YOU". PT CURRENTLY PENDING ACCEPTANCE INTO [facility] AT THIS TIME.
--- NOTE | 2020-06-05 17:05 | NUR ---
UNSCHEDULED DOSE: UNSCHEDULED DOSE OF DEPAKOTE GIVEN WITH 1500 SCHEDULED DOSE OF RISPERDAL AT APPROX 1530. EMILIA ALTAMIRANO NP AWARE.
--- NOTE | 2020-06-05 17:07 | NUR ---
PIRP: P: ALTERED THOUGHT PROCESS I: PROVIDE MEDICATIONS ORDERED BY PHYSICIAN. ENCOURAGE ATTENDANCE AND PARTICIPATION OF ALL GROUPS. ALLOW PATIENT TO VOICE FEELINGS AND CONCERNS. PROVIDE SAFE ENVIRONMENT. MONITOR PATIENT FOR PSYCHOTIC SYMPTOMS, DEPRESSION, ANXIETY AND SUICIDAL IDEATION R: PATIENT WAS UP EARLY THIS MORNING AND TOOK MORNING MEDICATIONS WITHOUT ANY PROBLEMS. HE HAS BEEN CALM AND COOPERATIVE, PLEASANT. HE HAS PARTICIPATED IN MUSIC BUT HAS NOT BEEN COGNATIVELY AVAILABLE TO PARTICIPATE IN ANY OTHER GROUPS. HE IS CONFUSED AND DISORIENTED. HE REMAINS A 1:1 FOR FALLS . HE HAS BEEN HALLUCINATING, FEEDING A DOG UNDER THE DAY ROOM TABLE. HE WAS TESTED FOR covid-19 TODAY BECAUSE OF PLACEMENT REQUIREMENTS. HE IS ASYMPTOMATIC. PATIENT DOES NOT APPEAR DEPRESSED OR ANXIOUS BUT AT TIMES IS RESTLESS. P: CONTINUE CURRENT PLAN OF CARE.
[2020-06-05 19:30] VITALS: BP 141/70
--- NOTE | 2020-06-05 19:30 | PRM.PN ---
Progress Note Subjective Date: Jun 05, 2020 Time: 14:00 Physician Notes: No issues overnight. Doing well, happy today. Mild swelling increase in LE per nursing. Cough better. Objective Review IO, Exams,& Results Problems Acute/Active Problems: (1) Delusional disorder Vital Signs Date Time Temp Pulse Resp B/P (MAP) Pulse Ox O2 Delivery O2 Flow Rate FiO2 06/05/20 12:33 97.2 64 12 139/79 (99) 96 Room Air Intake and Output 06/05/20 07:00 Intake Total 4296 ml Balance 4296 ml Intake Oral 4296 ml # Voids 8 Laboratory Tests Test 06/05/20 06:45 White Blood Count 6.4 10^3/uL Red Blood Count 3.41 10^6/uL Hemoglobin 10.3 g/dL Hematocrit 32.3 % Mean Corpuscular Volume 94.7 fL Mean Corpuscular Hemoglobin 30.2 pg Mean Corpuscular Hemoglobin Concent 31.9 g/dL Red Cell Distribution Width 13.5 % Platelet Count 149 10^3/uL Mean Platelet Volume 9.6 fL Thyroid Stimulating Hormone (TSH) 2.497 mIU/mL Current Medications Medications (Trade) Dose Ordered Sig/Power PRN Reason Start Time Stop Time Status Last Admin Amoxicillin/ Clavulanate Potassium (Augmentin 875-125 Tablet) 1 each BID 06/04/20 21:00 07/04/20 20:59 06/05/20 08:08 Doxepin HCl (Sinequin) 25 mg HS 06/03/20 21:00 07/03/20 20:59 06/04/20 20:50 Orders - SD PEARSON DO Xr Chest 1v (06/04/20 14:45) Miscellaneous (06/04/20 14:46) Amoxicillin/Potassium Clav (Augmentin 87 (06/04/20 21:00) Us Bilat Lower Ext Venous Dopp (06/06/20 07:00) Heart: Regular rate Abdomen: Soft, No tenderness Lungs: Clear to auscultation, Other (diminished left lower) Changes in Treatment order doppler BLE Assessment & Plan: Assessment Assessment/plan 1. LLL consolidation of lung, abnormal CXR - Apparently speech therapy is not available this week, aspiration precautions ordered and d/w nursing - CXR with LLL consolidation--clinically not consistent with pneumonia and no signs of infection. Treat with one week course of Augmentin and monitor. Need Repeat CXR 6 weeks to assure resolution, if not would be suspicion for mass/tumor and work up would be pending family goals. 2. HLD, chronic, stable--continue lipitor 3. CAD, chronic, stable--cont asa, plavix, lipitor, holding parameters for losartan and BB 4. Rosacea--completed course of doxy. I would not provide any further rounds of meds for him, especially antibiotics, as this is very mild and does not appear to be bothering him. 5. Essential HTN--Improved on new regimen 6. Delusional disorder--mgmt as per psychiatry/primary team. 7. Elevated BUN--if urine output remains normal I would feel comfortable spacing BMPs to qweek, will defer to primary team per their comfort level 8. LE edema, chronically with L>R LE edema, more pronounced than normal--check dopplers, but probably dependent. If dopplers neg advise compression stockings if patient tolerates. SD PEARSON DO Jun 05, 2020 19:30
[2020-06-05] MEDS: SINEQUIN PO SCH (20:51)
[2020-06-05] MEDS: LIPITOR PO SCH (20:52)
[2020-06-05] MEDS: CARDURA PO SCH (20:52)
[2020-06-05] MEDS: ZYPREXA ZYDIS SL PRN (21:30)
--- NOTE | 2020-06-05 21:30 | NUR ---
PRN ZYPREXA PATIENT RESTLESS, IRRITABLE, ANXIOUS , CURSING, THREATENING TO SHOOT NURSE IN THE BUTT, PUTTING HANDS IN NURSES POCKETS , PROPELLING SELF BY PULLING ON RAILS MODERATELY FAST UP AND DOWN NUNEZ EXIT SEEKING AT EMERGENCY EXIT, INAPPROPRIATE GESTURES , EXAMPLE PLACING THE TELEPHONE TO PELVIC AREA, VOICING YOUR MOUTH ON MY SU. UNABLE TO REDIRECT. PRN ZYPREXA 10 MG SUBLINGUAL ADMINISTERED. AT 2130.
--- NOTE | 2020-06-05 22:30 | NUR ---
FOLLOW UP PRN ZYPREXA ZYPREXA 10 MG SL EFFECTIVE PATIENT RESTING IN BED.
--- NOTE | 2020-06-06 05:30 | NUR ---
NOTED UMBILICUS WITH RED, MOISTNESS, SLIGHT ODOR. CLEANSED AREA WITH CLEANSER AND WATER AND CLOTH, DRIED WELL AND APPLIED ANTIFUNGLE CREAM FROM STOCK SUPPLIES. WILL CONTINUE TO MONITOR.
--- NOTE | 2020-06-06 06:19 | NUR ---
P.I.R.P. P. ALTERATION IN THOUGHT PROCESS I. PROVIDE EVERY 15 MINUTE DOCUMENTATION, PROVIDE 1:1 OBSERVATION FOR SAFETY, PATIENT DOES NOT KNOW OWN LIMITS WITH SAFETY/AMBULATION OR MOBILITY. PROVIDE MEDICATIONS ORDERED PER MD. PROVIDE TASK ORIENTED GROUP ACTIVITY AND ENCOURAGE PARTICIPATION. PROVIDE 1:1 INTERACTION TO ALLOW PATIENT TO EXPRESS FEELINGS, RE ORIENT NEEDED, REDIRECT NEEDED. R. PATIENT REQUIRED PRN ZYPREXA FOR RESTLESSNESS AND BEHAVIORS OF CURSING AND THREATENING , ZYPREXA WAS EFFECTIVE. PATIENT CONTINUES CONFUSED, RAMBLES SOMETIMES REFLECTING BACK TO SHIPYARD PAINTING SUPERVISOR DAYS. HALLUCINATIONS CONTINUE. PATIENT DID ATTEND GROUP AND ATTEMPT ACTIVITY. P. CONTINUE CURRENT PLAN OF CARE.
[2020-06-06 08:00] VITALS: BP 143/78
--- NOTE | 2020-06-06 08:24 | DIREP ---
PROCEDURE:US VENOUS IMAGING BILAT COMPARISON:None. INDICATIONS:edema TECHNIQUE:The lower extremities were evaluated utilizing mills scale images with segmental compression, color Doppler, and spectral Doppler with respiratory variation and augmentation. FINDINGS: RIGHT External iliac vein: Patent Common femoral vein:Patent Profunda femoris: Patent Superficial femoral vein:Patent Popliteal vein:Patent Posterior tibial vein:Patent Peroneal vein: Patent Greater saphenous vein:Patent Waveforms: Within normal limits. LEFT External iliac vein: Patent Common femoral vein:Patent Profunda femoris: Patent Superficial femoral vein:Patent Popliteal vein:Patent Posterior tibial vein:Patent Peroneal vein: Patent Greater saphenous vein:Patent Waveforms: Within normal limits. CONCLUSION:NORMAL EXAM. NO EVIDENCE DEEP VENOUS THROMBOSIS IN EITHER LOWER EXTREMITY. Dictated by: Robles Rea M.D. on 06/06/2020 at 08:22 AM
--- NOTE | 2020-06-06 08:57 | PRM.PN ---
Mood: UP AND DOWN, MOOD HAS BEEN IMPROVING Sleep: SLEEP HAS BEEN OK, SLEEPING 6-8 HOURS PER NIGHT Appetite: NORMAL APPETITE Suidical thoughts: NONE REPORTED Homicidal thoughts: NONE REPORTED Recent stressors: STRESS OF MENTAL ILLNESS, POOR MEMORY Family support: IS SUPPORTIVE Aggressive Behavior: SOME AGGRESSIVE BEHAVIOR, IMPROVED SINCE ADMISSION Ability to Perform ADL'sc: NEEDS ASSISTANCE Psychotic sympstoms: ODD AND DELUSIONAL THINING RELATED TO DEMENTIA Manic Symptoms: NONE REPORTED Living situation: GOING TO CORRECTION IN [place] Illicit Drug usec: NONE REPORTED Alcoholo use: NONE REPORTED Tobacco use: NONE REPORTED Anxity Symptoms: MODERATE ANXIETY LEVEL Anger/Irritablility: SOME ANGER AND IRRITABILITY THAT HAS IMPROVED SINCE ADMISSION Muscle Strength & Tone: WNL Gait & Station: Ataxic Appearance: Appears older, Well groomed/hygience, Casual attire, Normal weight Attitude & Behaviour: Uncooperative, Poor eye contact, Psychomotor agitation Mood & Affect: Iabile, Angry, Depressed Orientation: Disoriented to place, Disoriented to time, Disoriented to situation Attention/Concentration: Poor attention, Poor concentration Speech: Impaired Judgement/Insight: Poor judgement, Poor insight Thought Process: Loose, Tangential Language: Bol[place]ian Thought content/Abnormal/Psych: Delusions Fund of Knowledge: Other Associations: CHELA Memory (recent and remote): Recent memory repaired, Remote memory repaired Constitutional: None Neurological: None Psychiatric: Depressed, Anxious, Psychosis [place] I: DELUSIONAL DISORDER, DEMENTIA, PSYCHOSIS, BAMBI [place] II: DEFERRED [place] III: REFER TO PMH/MEDICAL CHART [place] IV: STRESS OF MENTAL ILLNES, STRESS OF MEMORY PROBLEMS [place] V: GAF=30 Assessment/Plan Assessment/Plan Assessment/Plan Vital Signs Date Time Temp Pulse Resp B/P (MAP) Pulse Ox O2 Delivery O2 Flow Rate FiO2 06/05/20 20:52 141/70 06/05/20 20:51 74 06/05/20 19:30 98.7 18 95 Room Air Allergies Coded Allergies No Known Drug Allergies (Verified Allergy, Unknown, 05/14/20) I & O 05/14/20 11:45 Thru 06/06/20 05:30 Intake Total 31261 ml Output Total 1725 ml Balance 14761 ml PLan of care for suspected aspiration femi, hospitalist summary as of 06/04/2020 1. Cough, mild and dry--associated with drinking liquids, suspect aspiration. - Apparently speech therapy is not available this week, aspiration precautions ordered and d/w nursing - Doubt aspiration pneumonitis given afebrile, cough dry, lungs clear and well appearing. Will obtain CXR and am CBC, but no need for abx at this point. 2. HLD, chronic, stable--continue lipitor 3. CAD, chronic, stable--cont asa, plavix, lipitor, holding parameters for losartan and BB 4. Rosacea--completed course of doxy. I would not provide any further rounds of meds for him, especially antibiotics, as this is very mild and does not appear to be bothering him. 5. Essential HTN--BP soft this am, held meds. BP has remained stable, doubt infection, afebrile and does not appear ill. - D/c amlodipine - VS q4h for the next day, call if abnormal. - Hold other antihypertensives if SBP < 110 or DBP < 70 6. Delusional disorder--mgmt as per psychiatry/primary team. 7. Elevated BUN--if urine output remains normal I would feel comfortable spacing BMPs to qweek, will defer to primary team per their comfort level Nursing: Ravin received morning medications, he did not get depakote this afternoon as he was sleeping in his bed, he slept 6 hours last night, was awake at 6am, was up all day,started a nap shortly afternoon Laboratory Tests 06/05/20 06:45: White Blood Count 6.4, Red Blood Count 3.41L, Hemoglobin 10.3L, Hematocrit 32.3L , Mean Corpuscular Volume 94.7, Mean Corpuscular Hemoglobin 30.2, Mean Corpuscular Hemoglobin Concent 31.9L, Red Cell Distribution Width 13.5, Platelet Count 149L, Mean Platelet Volume 9.6, Thyroid Stimulating Hormone (TSH) 2.497 Vital Signs Date Time Temp Pulse Resp B/P (MAP) Pulse Ox O2 Delivery O2 Flow Rate FiO2 06/05/20 12:33 97.2 64 12 139/79 (99) 96 Room Air Allergies Coded Allergies Type Severity Reaction Last Updated Verified No Known Drug Allergies Allergy Unknown 05/14/20 Yes Current Medications Medications (Trade) Dose Ordered Sig/Power PRN Reason Start Time Stop Time Status Last Admin Amoxicillin/ Clavulanate Potassium (Augmentin 875-125 Tablet) 1 each BID 06/04/20 21:00 07/04/20 20:59 06/05/20 08:08 Divalproex Sodium (Depakote Sprinkle) 250 mg 1300,2100 06/02/20 14:00 06/28/20 21:00 06/04/20 20:50 Doxepin HCl (Sinequin) 25 mg HS 06/03/20 21:00 07/03/20 20:59 06/04/20 20:50 Risperidone (Risperdal) 1 mg TID 06/02/20 14:00 06/30/20 08:59 06/05/20 08:08 PSYCHOTROPICS: DOXEPIN 25mg daily at HS DEPAKOTE 250MG 1300, 2100 ativan PRN NOT USED SINCE 05/31/2020 RISPERDAL 1mg tid ZYPREXA 10MG IM Q6 HOURS PRN PSYCHOSIS last use 06/02/2020 at 2200 FLUOXETINE 20MG DAILY stopped ON 05/27/2020 stopped 05/31/2020 BUSPIRONE 7.5MG TID THE PATIENT WAS SEEN BY DR. MARIANO VIA TELEMEDICINE ALONG WITH THE TREATMENT TEAM. THE PATIENT CONTINUES TO STRUGGLE WITH MEMORY PROBLEMS. THE PATIENT HAS A SUPPORTIVE . THE PATIENT REQUIRED PRN ZYPREXA LAST NIGHT. THE PATIENT WAS RESTLESS AND WHEELING DOWN THE HALLWAY. HE WAS NOT ALLOWING STAFF TO HELP HIM. HE REQUIRES CONSTANT REDIRECTION. ASSISTANT CORPORATION COUNSEL IS WORKING ON PLACING HIM IN A CORRECTION. THE PATIENT WAS ABLE TO STATE HIS FULL NAME. THE PATIENT WAS SEEN IN HIS ROOM. HE WAS LAYING HIS IN HIS BED. THE PATIENT WAS DISORIENTED TO PLACE, TIME, AND SITUATION. THE PATIENT THOUGHT THE PRESIDENT WAS OBAMA. THE PATIENT'S MOOD IS UP AND DOWN. THE PATIENT DENIES SI OR HI. THE PATIENT WAS NOT HAVING MANIC OR HYPOMANIC BEHAVIOR. THE PATIENT HAS ODD AND DELUSIONAL THINKING RELATED TO HIS DEMENTIA. THE PATIENT REQUIRES ASSISTANCE WITH HIS ADLS. THE PATIENT DENIES AUDITORY OR VISUAL HALLUCINATIONS. THE PATIENT HAS REPORTEDLY BEEN TAKING HIS MEDICATIONS. THE PATIENT SLEPT 6 HOURS LAST NIGHT. HE WOKE UP EARLY THIS MORNING. THE PATIENT HAS A NORMAL APPETITE. THE PATIENT HAS SWELLING IN HIS LEFT LEG. ASSESSMENT: DELUSIONAL DISORDER (F22), GENERALIZED ANXIETY DISORDER (F41.1), PSYCHOSIS (F29), ALZHEIMER'S DEMENTIA WITH BEHAVIOR PROBLEMS, PNEUMONIA- BEING TREATED WITH ANTIBIOTICS CONSENT: Consent was obtained by patient for telemedicine visit. Consent was obtained for the presence of staff member throughout encounter. Privacy was maintained throughout encounter PLAN: 1. CONTINUE BEHAVIORAL HEALTH MANAGEMENT. DISCHARGE WHEN APPROVED BY SNF. COVID-19 TEST PENDING. 2. CONTINUE CURRENT MEDICATIONS PRESCRIBED. STAFF AGREEABLE WITH PLAN 3. ALL PATIENT QUESTIONS ANSWERED RELATED TO MEDICATIONS, PLAN OF CARE, AND EXPECTED OUTCOMES. 4. SAFETY PLAN DISCUSSED. Problems: (1) Delusional disorder Status: Acute ICD Code: F22 - Delusional disorders SNOMED: 70016138 (2) Dementia Status: Chronic ICD Code: F03.90 - Unspecified dementia without behavioral disturbance SNOMED: 79235027 Plan PLan of care for suspected aspiration femi, hospitalist summary as of 06/04/2020 1. Cough, mild and dry--associated with drinking liquids, suspect aspiration. - Apparently speech therapy is not available this week, aspiration precautions ordered and d/w nursing - Doubt aspiration pneumonitis given afebrile, cough dry, lungs clear and well appearing. Will obtain CXR and am CBC, but no need for abx at this point. 2. HLD, chronic, stable--continue lipitor 3. CAD, chronic, stable--cont asa, plavix, lipitor, holding parameters for losartan and BB 4. Rosacea--completed course of doxy. I would not provide any further rounds of meds for him, especially antibiotics, as this is very mild and does not appear to be bothering him. 5. Essential HTN--BP soft this am, held meds. BP has remained stable, doubt infection, afebrile and does not appear ill. - D/c amlodipine - VS q4h for the next day, call if abnormal. - Hold other antihypertensives if SBP < 110 or DBP < 70 6. Delusional disorder--mgmt as per psychiatry/primary team. 7. Elevated BUN--if urine output remains normal I would feel comfortable spacing BMPs to qweek, will defer to primary team per their comfort level Nursing: Ravin received morning medications, he did not get depakote this afternoon as he was sleeping in his bed, he slept 6 hours last night, was awake at 6am, was up all day,started a nap shortly afternoon Laboratory Tests 06/05/20 06:45: White Blood Count 6.4, Red Blood Count 3.41L, Hemoglobin 10.3L, Hematocrit 32.3L , Mean Corpuscular Volume 94.7, Mean Corpuscular Hemoglobin 30.2, Mean Co rpuscular Hemoglobin Concent 31.9L, Red Cell Distribution Width 13.5, Platelet Count 149L, Mean Platelet Volume 9.6, Thyroid Stimulating Hormone (TSH) 2.497 Vital Signs Date Time Temp Pulse Resp B/P (MAP) Pulse Ox O2 Delivery O2 Flow Rate FiO2 06/05/20 12:33 97.2 64 12 139/79 (99) 96 Room Air Allergies Coded Allergies Type Severity Reaction Last Updated Verified No Known Drug Allergies Allergy Unknown 05/14/20 Yes Current Medications Medications (Trade) Dose Ordered Sig/Power PRN Reason Start Time Stop Time Status Last Admin Amoxicillin/ Clavulanate Potassium (Augmentin 875-125 Tablet) 1 each BID 06/04/20 21:00 07/04/20 20:59 06/05/20 08:08 Divalproex Sodium (Depakote Sprinkle) 250 mg 1300,2100 06/02/20 14:00 06/28/20 21:00 06/04/20 20:50 Doxepin HCl (Sinequin) 25 mg HS 06/03/20 21:00 07/03/20 20:59 06/04/20 20:50 Risperidone (Risperdal) 1 mg TID 06/02/20 14:00 06/30/20 08:59 06/05/20 08:08 PSYCHOTROPICS: DOXEPIN 25mg daily at HS DEPAKOTE 250MG 1300, 2100 ativan PRN NOT USED SINCE 05/31/2020 RISPERDAL 1mg tid ZYPREXA 10MG IM Q6 HOURS PRN PSYCHOSIS last use 06/02/2020 at 2200 FLUOXETINE 20MG DAILY stopped ON 05/27/2020 stopped 05/31/2020 BUSPIRONE 7.5MG TID summary; He is arouseable but does appear more tired, likely secondary to new medical sx, Depakote has controlled aggression and sexual behaviors. ASSESSMENT: DELUSIONAL DISORDER (F22), GENERALIZED ANXIETY DISORDER (F41.1), PSYCHOSIS (F29) CONSENT: Consent was obtained by patient for telemedicine visit. Consent was obtained for the presence of staff member throughout encounter. Privacy was maintained throughout encounter PLAN: 1. CONTINUE BEHAVIORAL HEALTH MANAGEMENT. DISCHARGE WHEN APPROVED BY SNF 2. CONTINUE CURRENT MEDICATIONS PRESCRIBED. STAFF AGREEABLE WITH PLAN 3. ALL PATIENT QUESTIONS ANSWERED RELATED TO MEDICATIONS, PLAN OF CARE, AND EXPECTED OUTCOMES. 4. SAFETY PLAN DISCUSSED. TIMA MARIANO IV, MD Jun 06, 2020 08:57
[2020-06-06] MEDS: VITAMIN D PO SCH (09:00)
[2020-06-06] MEDS: LOPRESSER PO SCH ×2 (09:00→21:10)
[2020-06-06] MEDS: VITAMIN C PO SCH (09:00)
--- NOTE | 2020-06-06 09:16 | BHS.IOP ---
S GROUP THERAPY NOTE (NOTE) NOTE: Reviewed chart, no new events noted. No new foreseeable medical needs. VSS. Reviewed neg doppler BLE. Ok to proceed with compression hose as tolerated for LE edema. Will defer medical rounds today, mgmt per primary team. Available for any medical needs that may arise, please do not hesitate to call. Dr. Pearson SD PEARSON DO Jun 06, 2020 09:16
--- NOTE | 2020-06-06 11:12 | NUR ---
Medications Patient has not received morning medications due to mentation and is sleeping. Addendum: 06/06/20 at 1504 by VALENTÍN Mcdowell/Gale LAURA patient took medications once he was up, adjustments made for scheduled times
[2020-06-06] MEDS: COLACE PO SCH ×2 (12:27→21:10)
[2020-06-06] MEDS: AUGMENTIN 875-125 TABLET PO SCH ×2 (12:27→21:08)
[2020-06-06] MEDS: ASPIRIN EC PO SCH (12:27)
[2020-06-06] MEDS: PLAVIX PO SCH (12:28)
[2020-06-06] MEDS: COZAAR PO SCH (12:28)
[2020-06-06] MEDS: DEPAKOTE SPRINKLE PO SCH ×2 (12:29→21:10)
[2020-06-06] MEDS: RISPERDAL PO SCH ×3 (12:29→21:11)
[2020-06-06] MEDS: NYSTOP TP SCH ×2 (12:29→21:00)
[2020-06-06] MEDS: TYLENOL #3 PO PRN ×2 (12:30→21:11)
[2020-06-06] MEDS: ZYPREXA ZYDIS SL PRN ×2 (14:27→21:12)
--- NOTE | 2020-06-06 14:40 | NUR ---
behavior Patient received prn Zyprexa Zydis po dose, for restlessness and unable to easily redirect.
--- NOTE | 2020-06-06 14:44 | NUR ---
[facility]: JOSH VISITED WITH POWER WHOM STATED "HE HAS BEEN ACCEPTED CLINICALLY WE ARE STILL WAITING ON THE FINANCIALS. THE IS MEETING WITH A PUMP SERVICER SUPERVISOR ON Wednesday06/07/2020 TO COMPLETE THE MEDICAID APPLICATION. SHE TOLD ME AFTER THE MEETING SHE WOULD BRING ALL THE PAPERWORK. ONCE WE GET HIM WE WOULD BE GOOD TO TAKE HIM. WE WOULD PREFER IF FAMILY PICKED HIM UP BUT IF WE NEED TO I AM SURE WE CAN ARRANGE TRANSPORTATION AT THAT TIME". PT HAS BEEN APPROVED CLINICAL CURRENTLY WAITING FOR THE FINANCIAL SIDE OF THINGS.
--- NOTE | 2020-06-06 15:40 | NUR ---
reassessment Patient calm, taking a nap in his room.
--- NOTE | 2020-06-06 16:00 | NUR ---
PIRP: P: ALTERED THOUGHT PROCESS I: PROVIDE MEDICATIONS ORDERED BY PHYSICIAN. ENCOURAGE ATTENDANCE AND PARTICIPATION OF ALL GROUPS. ALLOW PATIENT TO VOICE FEELINGS AND CONCERNS. PROVIDE SAFE ENVIRONMENT. MONITOR PATIENT FOR PSYCHOTIC SYMPTOMS, DEPRESSION, ANXIETY AND SUICIDAL IDEATION R: PATIENT TOOK MOST MORNING MEDICATIONS @1230. METOPROLOL AND VITAMINS WERE HELD. PATIENT RECEIVED HIS DEPAKOTE 1300 WITH SCHEDULED MEDICATIONS. AT 1430 PATIENT RECEIVED ZYPREXA 10 MG PRN FOR RESTLESS, ANXIOUS BEHAVIOR, AND PATIENT WAS UNABLE TO REDIRECT. P: CONTINUE CURRENT PLAN OF CARE .
[2020-06-06 19:29] VITALS: BP 140/78
[2020-06-06] MEDS: CARDURA PO SCH (21:10)
[2020-06-06] MEDS: LIPITOR PO SCH (21:10)
[2020-06-06] MEDS: SINEQUIN PO SCH (21:11)
--- NOTE | 2020-06-06 21:12 | NUR ---
PRN ZYPREXA AND TYLENOL 3 PATIENT HAS BEEN RESTLESS, PSYCHOTIC SYMPTOMS, REACHING FOR THINGS NOT SEEN BY OTHERS, TALKING TO THINGS NOT SEEN BY OTHERS, LEANING OVER IN CHAIR TO WORK ON TABLE OR CHAIRS, TRYING TO TURN OVER CHAIRS, STANDING UP AND SITTING BACK DOWN, UNABLE TO REDIRECT, TOILETING OFFERED, PATIENT VOICED "NO" . BY PROXY ALSO USED FOR PAIN SCALE AND PATIENT VOICED YES WHEN ASKED IF HE HAD PAIN, SCALE 6 /10 . PRN ZYPREXA 10 MG SUBLINGUAL AND TYLENOL 3 ADMINISTERED WITHOUT DIFFICULTY.
--- NOTE | 2020-06-06 22:56 | NUR ---
FOLLOW UP TYLENOL 3 AND ZYPREXA. PATIENT RESTLESSNESS DID DECREASE, PAIN SCALE BY PROXY 3/10. BOTH MEDS EFFECTIVE
--- NOTE | 2020-06-07 05:50 | NUR ---
P.I.R.P. P. ALTERATION IN THOUGHT PROCESS/SKIN I. PROVIDE SAFE ENVIRONMENT, TALK TO PATIENT IN CALM REASSURING VOICE. PROVIDE EVERY 15 MINUTE DOCUMENTATION, PROVIDE 1:1 OBSERVATION FOR SAFETY, PATIENT DOES NOT KNOW OWN LIMITS WITH SAFETY/AMBULATION OR MOBILITY. PROVIDE MEDICATIONS ORDERED PER MD. PROVIDE TASK ORIENTED GROUP ACTIVITY AND ENCOURAGE PARTICIPATION. PROVIDE 1:1 INTERACTION TO ALLOW PATIENT TO EXPRESS FEELINGS, RE ORIENT NEEDED, REDIRECT NEEDED. EDUCATE PATIENT TO BEST OF HIS COGNITIVE ABILITY. R. PATIENT REQUIRED PRN ZYPREXA 10 MG SUBLINGUAL THIS SHIFT FOR RESTLESSNESS AND PSYCHOTIC SYMPTOMS, REQUIRED PRN TYLENOL 3 FOR PAIN PER BY PROXY SCALE, BOTH WERE EFFECTIVE , PATIENT TOOK MEDS ORDERED. ATTENDED GROUP ACTIVITY AND ATTEMPTED PARTICIPATION BUT CONCENTRATION AND ATTENTION SPAN LESS THAN 1 MINUTE FOR ACTIVITIES. NO FALLS THIS SHIFT, NOTED WHEN SLEEPING DOES HAVE PERIODS OF APNEA , THIS IS NOT NEW HAVE NOTED ON OTHER SHIFTS ALSO. NOTED WHEN PATIENT SLEEPING THIS SHIFT HE WAS ASLEEP BUT WAS RESTLESS. IRRITATION TO UMBILICUS IMPROVED. RESOLVING. P. CONTINUE CURRENT PLAN OF CARE.
--- NOTE | 2020-06-07 10:03 | PRM.PN ---
PROGRESS NOTE S/O/A/P Updated , Dora, yesterday evening of abn CXR and plan for empiric tx of CAP, 5 day course of augmentin recommended and then would place on probiotics for a couple of weeks. Shoudl have repeat CXR in about 6 weeks to assure resolution of CXR abn. If remains abn would recommend further evaluation/imaging and CT chest to r/o mass. Reviewed chart, no new events noted. No new foreseeable medical needs. VSS. Will defer medical rounds today, mgmt per primary team. Available for any medical needs that may arise, please do not hesitate to call. Dr. Pearson SD PEARSON DO Jun 07, 2020 10:03
[2020-06-07] MEDS: ASPIRIN EC PO SCH (11:03)
[2020-06-07] MEDS: PLAVIX PO SCH (11:03)
[2020-06-07] MEDS: AUGMENTIN 875-125 TABLET PO SCH ×2 (11:03→20:26)
[2020-06-07] MEDS: VITAMIN D PO SCH (11:03)
[2020-06-07] MEDS: VITAMIN C PO SCH (11:03)
[2020-06-07] MEDS: LOPRESSER PO SCH ×2 (11:04→20:27)
[2020-06-07] MEDS: RISPERDAL PO SCH ×3 (11:04→20:27)
[2020-06-07] MEDS: NYSTOP TP SCH ×2 (11:05→20:43)
[2020-06-07] MEDS: COZAAR PO SCH (11:05)
[2020-06-07] MEDS: COLACE PO SCH ×2 (11:05→20:43)
[2020-06-07 11:14] VITALS: BP 138/83
[2020-06-07] MEDS: DEPAKOTE SPRINKLE PO SCH ×3 (13:07→20:27)
--- NOTE | 2020-06-07 16:20 | NUR ---
[facility] UPDATE: JOSH VISITED WITH POWER WHOM STATED "WE ARE STILL WAITING ON THE TO BRING IN HIS PAPERWORK. ONCE WE GET THOSE I WILL LET YOU KNOW". JOSH REACHED OUT TO PT'S [place]AYKAY WHOM STATED "I AM AT THE COILER OFFICE NOW SO I WILL BRING THE PAPER WORK OVER TO HER FIRST THING WEDNESDAY MORNING". JOSH PROVIDED [employer] UPDATE AND LET HER KNOW WE WILL AIM FOR THE FIRST OF THE WEEK FOR DISCHARGE POSSIBLY WEDNESDAY IF THEY WORK OUT THE FINANCIAL ASPECT OF IT.
--- NOTE | 2020-06-07 16:22 | PRM.PN ---
Mood: even today Sleep: 7.5 hours and slept in- total 8.5 hours Appetite: too good, double portions, Suidical thoughts: does not make statements, Homicidal thoughts: does not make statements, Recent stressors: medical pnuemonia Family support: ,daughters, Aggressive Behavior: denies Ability to Perform ADL'sc: staff assist of 1-2 Psychotic sympstoms: responds to internal, Manic Symptoms: restless in the day Living situation: discharge to snf Illicit Drug usec: na Alcoholo use: na Tobacco use: na Family,PT,Surgical,&Current HX: (1) Delusional disorder (2) Dementia Anxity Symptoms: not appearing worried, Anger/Irritablility: not been an issue, Muscle Strength & Tone: Rigidity Gait & Station: Ataxic Appearance: Well groomed/hygience Attitude & Behaviour: Cooperative/Pleasant, Poor eye contact Mood & Affect: Full Orientation: Disoriented to place, Disoriented to time, Disoriented to situation Attention/Concentration: Poor attention, Poor concentration Speech: Reg rate/vol/rhyth/prosod Judgement/Insight: Poor judgement, Poor insight Thought Process: Circumferential Language: Niuean Thought content/Abnormal/Psych: A/V Mitchell, Delusions Fund of Knowledge: WNL Associations: Other Constitutional: None Neurological: None Psychiatric: Psychosis (responds to internal) [place] I: delusional disorder, dementia [place] III: post hip fx and repair, pnuemonia [place] IV: discharge to snf Assessment/Plan Assessment/Plan Plan Nursing: was more difficult to wake him, took while to perk up this morning but has been up he continues to be busy doing meaningless tasks, a bit ago he was talking to a baby, a baby was not present he was able to throw moore bag toss well zyprexa prn given yesterday night and day [facility]: they are willing to take him on Wednesday hospitalist: talked with [facility] about pneumonia possibly discharge on wednesday Ravin; answers Hey Girlfriend as he greets me twice today tells me he is cleaning up the city, tells us "under no circumstance do you let him put paper between his teeth" he is pointing in area where there was not an actual person he does ask for a donut then went on to the next subject, Vital Signs Date Time Temp Pulse Resp B/P (MAP) Pulse Ox O2 Delivery O2 Flow Rate FiO2 06/07/20 11:14 97.8 71 18 138/83 (101) 93 06/06/20 08:00 Room Air Allergies Coded Allergies Type Severity Reaction Last Updated Verified No Known Drug Allergies Allergy Unknown 05/14/20 Yes Current Medications Medications (Trade) Dose Ordered Sig/Power PRN Reason Start Time Stop Time Status Last Admin Amoxicillin/ Clavulanate Potassium (Augmentin 875-125 Tablet) 1 each BID 06/04/20 21:00 07/04/20 20:59 06/07/20 11:03 Nystatin (Nystop) 1 gm BID 06/06/20 09:30 07/06/20 09:29 06/07/20 11:05 PSYCHOTROPICS: DOXEPIN 25mg daily at HS DEPAKOTE 250MG 1300, 2100 ativan PRN NOT USED SINCE 05/31/2020 RISPERDAL 1mg tid ZYPREXA 10MG IM Q6 HOURS PRN PSYCHOSIS last use 06/02/2020 at 2200 FLUOXETINE 20MG DAILY stopped ON 05/27/2020 stopped 05/31/2020 BUSPIRONE 7.5MG TID ASSESSMENT: DELUSIONAL DISORDER (F22), GENERALIZED ANXIETY DISORDER (F41.1), PSYCHOSIS (F29), ALZHEIMER'S DEMENTIA WITH BEHAVIOR PROBLEMS, PNEUMONIA- BEING TREATED WITH ANTIBIOTICS CONSENT: Consent was obtained by patient for telemedicine visit. Consent was obtained for the presence of staff member throughout encounter. Privacy was maintained throughout encounter PLAN: 1. CONTINUE BEHAVIORAL HEALTH MANAGEMENT. DISCHARGE WHEN APPROVED BY SNF, (confirmation 06/07/2020 532, covid 19 was not negative) 2. CONTINUE CURRENT MEDICATIONS PRESCRIBED. STAFF AGREEABLE WITH PLAN 3. ALL PATIENT QUESTIONS ANSWERED RELATED TO MEDICATIONS, PLAN OF CARE, AND EXPECTED OUTCOMES. 4. SAFETY PLAN DISCUSSED. 5. Increase 250+ 125 of depakote at 1300, continue with 250mg at hs daily , prevent sundowning sx 6 valproic level, cmp and cbc LUIS ARMANDO ALTAMIRANO NP Jun 07, 2020 16:22
--- NOTE | 2020-06-07 16:42 | NUR ---
TELEMED PT WAS SEEN BY Jose Manuel ALTAMIRANO NP. RECEIVED ORDERS TO INCREASE 1300 DOSE OF DEPAKOTE AND ORDERS FOR CBC/CMP/VALPROATE LEVEL IN A.M., SEE EMR.
--- NOTE | 2020-06-07 17:32 | NUR ---
PIRP P: ALTERED THOUGHT PROCESS, FALL RISK I: ASSESS FOR PSYCHOTIC SYMPTOMS, REINFORCE TOILETING SCHEDULE, ASSIST WITH DIFFERENTIATING BETWEEN INTERNAL AND EXTERNAL REALITY, 1:1 OBSERVATION, REINFORCE EDUCATION REGARDING FALL PREVENTION TECHNIQUES, ASSESS FOR ANXIETY/IRRITABILITY, RE-ORIENT TO REALITY/SURROUNDINGS NEEDED, GIVE CLEAR AND SIMPLE INSTRUCTIONS, GIVE MEDICATION ORDERED, DECREASE EXTERNAL STIMULI, PROVIDE TASK ORIENTED ACTIVITIES, PROVIDE SAFE AND SUPPORTIVE ENVIRONMENT R: PT HAS MOSTLY PLEASANT AFFECT THROUGHOUT SHIFT, HAS NOT EXHIBITED THREATENING OR COMBATIVE BEHAVIORS. DENIES FEELINGS OF DEPRESSION, ANXIETY, SI/HI. EXHIBITS VARYING DELUSIONS R/T CONFUSION, HAS BEEN OBSERVED TALKING TO PEOPLE NOT THERE AND REACHING FOR THINGS ON GROUND NOT THERE. HAS BEEN COOPERATIVE WITH WORK CHECKER THIS SHIFT, PARTICIPATES IN SOME GROUP ACTIVITIES WITH PROMPTING AND SIMPLE INSTRUCTION. FREQUENTLY ATTEMPTS TO AMBULATE WITHOUT ASSIST, HAS BEEN ABLE TO BE REDIRECTED WITH VERBALIZATION. P: 1300 DEPAKOTE INCREASED, SEE EMR
[2020-06-07 19:10] VITALS: BP 165/91
[2020-06-07] MEDS: SINEQUIN PO SCH (20:26)
[2020-06-07] MEDS: CARDURA PO SCH (20:28)
[2020-06-07] MEDS: LIPITOR PO SCH (20:28)
--- NOTE | 2020-06-08 04:42 | NUR ---
PIRP- P- ALTERATION IN THOUGHT PROCESS AND FALL RISK I- PROVIDE MEDICATION ORDERED,PROVIDE SAFE AND SUPPORTIVE ENVIRONMENT AND 1:1 WITH PT. AT ALL TIMES. R- PT. HAS NOT EXHIBITED COMBATIVE BEHAVIORS THIS SHIFT. ATTENDED GROUP,ATE SNACKS AND PARTICIPATED IN EXERCISES WITH PEER AND STAFF. AT TIMES PT. TALKED TO SOMEONE NOT THERE AND PUPPIES NOT THERE. SEVERAL TIMES ATTEMPTED TO VAMPER THINGS OFF THE FLOOR THAT WERE NOT THERE. TOOK MEDICATION ORDERED.ATTEMPTED GET UP AND WALK WITHOUT ASKING FOR ASSIST. REMAINS FALL RISK. WEARING YELLOW NON SKID SOCKS,BED IN LOW POSITION AND 1:1 WITH STAFF AT ALL TIMES. PT. WAS ASSISTED WITH HS CARE AND TO BED. HAS RESTED IN BED WITH EYES CLOSED 7 HOURS TONIGHT OF THIS TIME. P- WILL CONTINUE TO PROVIDE 1:1 WITH STAFF AT ALL TIMES. REDIRECT NEEDED.
[2020-06-08 07:40] LABS: BASOPHIL % 0.6 % (0.0-0.2); EOSINOPHIL # 0.2 10^3/uL (0.0-0.2); EOSINOPHIL % 2.2 % (0.0-5.0); LYMPHOCYTES # 1.08 10^3/uL1 (1.0-4.8); LYMPHOCYTES % 15.9 % (24.0-44.0); MONOCYTES # 0.8 10^3/uL (0.3-0.8); MONOCYTES % 11.8 % (5.0-12.0); NEUTROPHIL # 4.7 10^3/uL (1.8-7.7); NEUTROPHILS % 69.4 % (41.0-85.0); PLATELET COUNT 145 10^3/uL (150-400); RED CELL DISTRIBUTION WIDTH 13.4 % (11.5-14.5)
[2020-06-08 08:11] LABS: CALCIUM 8.7 mg/dL (8.4-10.5); CARBON DIOXIDE 29.8 mmol/L (20.0-32)
[2020-06-08] MEDS: NYSTOP TP SCH ×2 (09:00→20:42)
[2020-06-08] MEDS: PLAVIX PO SCH (09:39)
[2020-06-08] MEDS: ASPIRIN EC PO SCH (09:39)
[2020-06-08] MEDS: RISPERDAL PO SCH ×3 (09:39→20:44)
[2020-06-08] MEDS: COLACE PO SCH ×2 (09:39→20:42)
[2020-06-08] MEDS: AUGMENTIN 875-125 TABLET PO SCH ×2 (09:40→20:28)
[2020-06-08] MEDS: VITAMIN D PO SCH (09:40)
[2020-06-08] MEDS: VITAMIN C PO SCH (09:40)
[2020-06-08] MEDS: TYLENOL #3 PO PRN ×2 (09:40→17:05)
[2020-06-08] MEDS: LOPRESSER PO SCH ×2 (09:47→20:47)
[2020-06-08] MEDS: COZAAR PO SCH (09:48)
[2020-06-08 10:03] VITALS: BP 156/62
[2020-06-08] MEDS: DEPAKOTE SPRINKLE PO SCH ×3 (12:31→20:48)
--- NOTE | 2020-06-08 13:56 | PRM.PN ---
PROGRESS NOTE S/O/A/P Updated Dora on 06/06 of abn CXR and plan for empiric tx of possible CAP, 5 day course of augmentin recommended (stop date 06/09) and then would place on probiotics for a couple of weeks. Should have repeat CXR in about 6 weeks to assure resolution of CXR abn. If remains abn would recommend further evalu ation/imaging and CT chest to r/o mass. If BP cont to be high nml would resume full home BP regimen. Reviewed chart, no new events noted. No new foreseeable medical needs. VSS. Will defer medical rounds today, mgmt per primary team. Available for any medical needs that may arise, please do not hesitate to call. Dr. Pearson SD PEARSON DO Jun 08, 2020 13:56
--- NOTE | 2020-06-08 14:16 | PRM.PN ---
Mood: even, Sleep: 10 hours Appetite: good, requests food often Suidical thoughts: does not make statements Homicidal thoughts: does not make statements Recent stressors: modest, being dependant on staff Family support: , daughter Aggressive Behavior: verbal shortness with cares only Ability to Perform ADL'sc: modest, can be irritable with brief change, toileting Psychotic sympstoms: responds to internal, appearing less, Manic Symptoms: less in constant movement, Living situation: discharge to snf Illicit Drug usec: na Alcoholo use: na Tobacco use: na Family,PT,Surgical,&Current HX: (1) Delusional disorder (2) Dementia Anxity Symptoms: no presenting Anger/Irritablility: only with brief care, Muscle Strength & Tone: Rigidity Gait & Station: Ataxic Appearance: Well groomed/hygience Attitude & Behaviour: Uncooperative (did not appear to recognize purpose of televideo or that he was being talked to) Mood & Affect: Blunted Orientation: Disoriented to place, Disoriented to time, Disoriented to situation Attention/Concentration: Poor attention, Poor concentration Speech: Impaired (at times mumbling but having more clear speech, messages, just not on topic) Judgement/Insight: Poor judgement, Poor insight Thought Process: Loose Language: Bulgarian Thought content/Abnormal/Psych: A/V Mitchell, Delusions Fund of Knowledge: WNL Associations: Other Constitutional: None Neurological: None Psychiatric: Psychosis (is not reality based, mostly not aware of time- situation) [place] I: dementia, delusional disorder [place] IV: discharge to snf Assessment/Plan Assessment/Plan Plan Nursing: eating well no signs of blood in stool; cannot explain continued lower hemoglobin, appetite has improved aggression- mild threat during toileting, he is not understanding directions, gets frustrated- with redirection, staff slowing no prn zyprexa, a bit more restless today, last night 8 hours and slept in 2 hours, No sexual behaviors at times will try hug/kiss nurse on cheek as if he thinks its his daughter, not inappropriate [facility]: they are willing to take him on Wednesday hospitalist: talked with [facility] about pneumonia Laboratory Tests 06/08/20 07:27: White Blood Count 6.8, Red Blood Count 3.30L, Hemoglobin 9.9L, Hematocrit 30.8L, Mean Corpuscular Volume 93.3, Mean Corpuscular Hemoglobin 30.0, Mean Corpuscular Hemoglobin Concent 32.1L, Red Cell Distribution Width 13.4, Platelet Count 145L, Mean Platelet Volume 9.5, Neutrophils (%) (Auto) 69.4, Lymphocytes (%) (Auto) 15.9L, Monocytes (%) (Auto) 11.8, Neutrophils # (Auto) 4.7, Lymphocytes # (Auto) 1.08, Monocytes # (Auto) 0.8, Absolute Immature Granulocyte (auto 0.01, Absolute Eosinophils (auto) 0.2, Immature Granulocytes % 0.10, Eosinophils % 2.2, Basophils % 0.6H, Basophils # 0.0, Sodium Level 140, Potassium Level 4.5, Chloride Level 105.0, Carbon Dioxide Level 29.8, Anion Gap 9.7, Blood Urea Nitrogen 26H, Creatinine 1.23, Estimated GFR () 69.0, Est GFR (CKD-EPI)(Non-Afr Peruvian) 57.1, BUN/Creatinine Ratio 21.0, Glucose Level 89, Calcium Level 8.7, Total Bilirubin 0.4, Aspartate Amino Transf (AST/SGOT) 24, Alanine Aminotransferase (ALT/SGPT) 20, Alkaline Phosphatase 136, Total Protein 5.6L, Albumin 2.8L, Globulin 2.8, Valproic Acid (Depakene) Level 39L Vital Signs Date Time Temp Pulse Resp B/P (MAP) Pulse Ox O2 Delivery O2 Flow Rate FiO2 06/08/20 10:03 97.9 66 16 156/62 (93) 94 Room Air Allergies Coded Allergies Type Severity Reaction Last Updated Verified No Known Drug Allergies Allergy Unknown 05/14/20 Yes Current Medications Medications (Trade) Dose Ordered Sig/Power PRN Reason Start Time Stop Time Status Last Admin Divalproex Sodium (Depakote Sprinkle) 125 mg 1300 06/07/20 17:00 06/29/20 21:00 06/08/20 12:31 Nystatin (Nystop) 1 gm BID 06/06/20 09:30 07/06/20 09:29 06/08/20 09:00 PSYCHOTROPICS: DOXEPIN 25mg daily at HS DEPAKOTE 250MG 1300, 2100 ativan PRN NOT USED SINCE 05/31/2020 RISPERDAL 1mg tid ZYPREXA 10MG IM Q6 HOURS PRN PSYCHOSIS last use 06/02/2020 at 2200 FLUOXETINE 20MG DAILY stopped ON 05/27/2020 stopped 05/31/2020 BUSPIRONE 7.5MG TID ASSESSMENT: DELUSIONAL DISORDER (F22), GENERALIZED ANXIETY DISORDER (F41.1), PSYCHOSIS (F29), ALZHEIMER'S DEMENTIA WITH BEHAVIOR PROBLEMS, PNEUMONIA- BEING TREATED WITH ANTIBIOTICS CONSENT: Consent was obtained by patient for telemedicine visit. Consent was obtained for the presence of staff member throughout encounter. Privacy was maintained throughout encounter PLAN: 1. CONTINUE BEHAVIORAL HEALTH MANAGEMENT. DISCHARGE WHEN APPROVED BY SNF, (confirmation 06/07/2020 532, covid 19 was not negative) 2. CONTINUE CURRENT MEDICATIONS PRESCRIBED. STAFF AGREEABLE WITH PLAN 3. ALL PATIENT QUESTIONS ANSWERED RELATED TO MEDICATIONS, PLAN OF CARE, AND EXPECTED OUTCOMES. 4. SAFETY PLAN DISCUSSED. LUIS ARMANDO ALTAMIRANO NP Jun 08, 2020 14:16
--- NOTE | 2020-06-08 18:07 | NUR ---
PIRP P: ALTERED THOUGHT PROCESS, FALL RISK I: ASSESS FOR PSYCHOTIC SYMPTOMS, ASSIST WITH DIFFERENTIATING BETWEEN INTERNAL AND EXTERNAL REALITY, GIVE CLEAR AND SIMPLE INSTRUCTIONS, REDIRECT WITH VERBALIZATION, GIVE CLEAR AND SIMPLE INSTRUCTIONS, PROVIDE TASK-ORIENTED ACTIVITIES, REINFORCE FALL PREVENTION TECHNIQUES, RE-ORIENT TO SURROUNDINGS NEEDED, PROVIDE POSITIVE FEEDBACK ON APPROPRIATE BEHAVIORS, GIVE MEDICATIONS ORDERED, DECREASE EXTERNAL STIMULI R: PT HAS BEEN PLEASANT WITH APPROACH, HAS NOT EXHIBITED THREATENING OR COMBATIVE BEHAVIORS. HAS BEEN RESISTIVE WITH CARE AT TIMES R/T CONFUSION. PT HAS BEEN ABLE TO BE REDIRECTED WITH VERBALIZATION, HAS TAKEN MEDICATIONS ORDERED, AND HAS PARTICIPATED IN 1:1 ACTIVITIES WITH STAFF. CONT TO EXHIBIT VARYING DELUSIONS R/T CONFUSION, TALKS/SIGNALS TO PEOPLE NOT THERE AT TIMES. FREQUENTLY ATTEMPTS TO AMBULATE WITHOUT ASSISTANCE, REQUIRES CLOSE MONITORING FOR HIGH FALL RISK. DOES NOT ANSWER ASSESSMENT QUESTIONS APPROPRIATELY, ALERT AND ORIENTED X 1, SPEECH IS RAMBLED/DISORGANIZED. P: REINFORCE FALL PREVENTION TECHNIQUES, RE-ORIENT TO REALITY NEEDED
[2020-06-08 19:26] VITALS: BP 100/64
[2020-06-08 20:03] VITALS: BP 120/70
[2020-06-08] MEDS: LIPITOR PO SCH (20:39)
[2020-06-08] MEDS: CARDURA PO SCH (20:40)
[2020-06-08] MEDS: SINEQUIN PO SCH (20:45)
--- NOTE | 2020-06-09 05:38 | NUR ---
PIRP- P- ALTERED THOUGHT PROCESS AND FALL RISK I- PROVIDE MEDICATION ORDERED,PROVIDE SAFE AND SUPPORTIVE ENVIRONMENT,1:1 AT ALL TIMES WITH STAFF AND PROVIDE CLEAR AND SIMPLE INSTRUCTIONS. REDIRECT NEEDED. R- PT. ORIENTED TO NAME NOT MONTH OR YEAR. PLEASANT AFFECT. DENIED DEPRESSION,ANXIETY AND PAIN. EXHIBITED HALLUCINATIONS/DELUSIONS HE TALKED TO PEOPLE NOT THERE AT TIMES. RAMBLES USING LOOSE ASSOCIATION AND FLIGHT OF IDEAS. REQUIRES REDIRECTING AT TIMES. EXHIBITED NO COMBATIVENESS THIS SHIFT. ATTENDED GROUP,ATE SNACKS AND PARTICIPATED IN EXERCISES. TOOK MEDICATION ORDERED. WAS COOPERATIVE WITH CARE AND TO BED. HAS BEEN RESTING IN BED WITH EYES CLOSED FOR 8 HOURS OF THIS TIME. PT. CONTINUES TO BE 1:1 WITH STAFF AT ALL TIMES. REMAINS HIGH FALL RISK. BED IN LOW POSITION AND PT. WEARING YELLOW NON SKID SOCKS P- WILL CONTINUE TO PROVIDE 1:1 INTERVENTION ALLOWING PT. TO EXPRESS THOUGHTS AND FEELINGS. PT. CONTINUES TO BE 1:1 WITH STAFF AT ALL TIMES THIS SHIFT.
--- NOTE | 2020-06-09 10:27 | NUR ---
[facility] FOLLOW UP: SW VISITED WITH POWER AND PT'S AT THIS TIME HAD NOT BROUGHT UP THE NEEDED PAPERWORK BUT ONCE SHE DID SHE WOULD CALL THIS WORKER BACK. Addendum: 06/11/20 at 1114 by Kiesha Lopez LMSW JOSH BACK DATED NOTE FOR 06/10/2020
[2020-06-09] MEDS: VITAMIN D PO SCH (11:49)
[2020-06-09] MEDS: COZAAR PO SCH (11:49)
[2020-06-09] MEDS: LOPRESSER PO SCH ×2 (11:50→20:21)
[2020-06-09] MEDS: VITAMIN C PO SCH (11:50)
[2020-06-09] MEDS: ASPIRIN EC PO SCH (11:50)
[2020-06-09] MEDS: RISPERDAL PO SCH ×3 (11:50→20:20)
[2020-06-09] MEDS: PLAVIX PO SCH (11:50)
[2020-06-09] MEDS: COLACE PO SCH ×2 (11:50→20:19)
[2020-06-09] MEDS: TYLENOL #3 PO PRN ×2 (11:51→20:19)
[2020-06-09] MEDS: NYSTOP TP SCH ×2 (11:51→21:00)
[2020-06-09] MEDS: AUGMENTIN 875-125 TABLET PO SCH ×2 (11:51→20:20)
[2020-06-09 11:52] VITALS: BP 151/79
--- NOTE | 2020-06-09 12:55 | PRM.PN ---
Mood: even- Sleep: 10.5 hours Appetite: well, frequent eating Suidical thoughts: does not make statements Homicidal thoughts: does not make statements Recent stressors: not being aware of surroundings Family support: ,daughter Aggressive Behavior: resistive with cares, Ability to Perform ADL'sc: staff of 1-2 Psychotic sympstoms: responds to internal, does not stay oriented Manic Symptoms: less today, Living situation: discharge to snf Illicit Drug usec: na Alcoholo use: na Tobacco use: na Family,PT,Surgical,&Current HX: (1) Delusional disorder (2) Dementia Anxity Symptoms: does not complain Anger/Irritablility: denies Muscle Strength & Tone: Rigidity Gait & Station: Ataxic Appearance: Well groomed/hygience Attitude & Behaviour: Cooperative/Pleasant Mood & Affect: Full Orientation: Disoriented to place, Disoriented to time, Disoriented to situation Attention/Concentration: Poor attention, Poor concentration Speech: Reg rate/vol/rhyth/prosod Judgement/Insight: Poor judgement, Poor insight Thought Process: Circumferential Language: Kyrgyz Thought content/Abnormal/Psych: A/V Mitchell, Delusions Fund of Knowledge: WNL Associations: Other Constitutional: None Neurological: None Psychiatric: Psychosis [place] I: delusional disorder, dementia [place] IV: discharge to snf Assessment/Plan Assessment/Plan Plan Nursing: More movement yesterday afternoon, restless, reaching for items- no prns needed, would listen to staff direction, allowed to move, up and down in w/c today he is doing better, not as restless, pleasant, not able to follow simple commands modest with cares, mildly resistive with brief changing patient: Vital Signs Date Time Temp Pulse Resp B/P (MAP) Pulse Ox O2 Delivery O2 Flow Rate FiO2 06/09/20 11:52 97.4 66 16 151/79 (103) 96 Room Air Allergies Coded Allergies Type Severity Reaction Last Updated Verified No Known Drug Allergies Allergy Unknown 05/14/20 Yes Current Medications Medications (Trade) Dose Ordered Sig/Power PRN Reason Start Time Stop Time Status Last Admin Divalproex Sodium (Depakote Sprinkle) 250 mg HS 06/08/20 21:00 06/28/20 21:00 06/08/20 20:48 Divalproex Sodium (Depakote Sprinkle) 375 mg 1300 06/09/20 13:00 07/09/20 12:59 PSYCHOTROPICS: DOXEPIN 25mg daily at HS DEPAKOTE 250MG at 2100 and 375mg at 1300 ativan PRN NOT USED SINCE 05/31/2020 RISPERDAL 1mg tid ZYPREXA 10MG IM Q6 HOURS PRN PSYCHOSIS last use 06/06/2020 at 2100 FLUOXETINE 20MG DAILY stopped ON 05/27/2020 stopped 05/31/2020 BUSPIRONE 7.5MG TID summary: he is able to hear my voice and asking how he is but does not sustain eye contact with televideo, he is appearing alert, trying to answer qu estions today ASSESSMENT: DELUSIONAL DISORDER (F22), GENERALIZED ANXIETY DISORDER (F41.1), PSYCHOSIS (F29), ALZHEIMER'S DEMENTIA WITH BEHAVIOR PROBLEMS, PNEUMONIA- BEING TREATED WITH ANTIBIOTICS CONSENT: Consent was obtained by patient for telemedicine visit. Consent was obtained for the presence of staff member throughout encounter. Privacy was maintained throughout encounter PLAN: 1. CONTINUE BEHAVIORAL HEALTH MANAGEMENT. DISCHARGE WHEN APPROVED BY SNF, (confirmation 06/07/2020 532, covid 19 was not negative) 2. CONTINUE CURRENT MEDICATIONS PRESCRIBED. STAFF AGREEABLE WITH PLAN 3. ALL PATIENT QUESTIONS ANSWERED RELATED TO MEDICATIONS, PLAN OF CARE, AND EXPECTED OUTCOMES. 4. SAFETY PLAN DISCUSSED. LUIS ARMANDO ALTAMIRANO NP Jun 09, 2020 12:55
[2020-06-09] MEDS: DEPAKOTE SPRINKLE PO SCH ×2 (14:20→20:21)
--- NOTE | 2020-06-09 17:12 | NUR ---
PIRP P: ALTERED THOUGHT PROCESS, FALL RISK I: ASSESS FOR PSYCHOTIC SYMPTOMS, GIVE CLEAR AND SIMPLE INSTRUCTIONS, REDIRECT WITH VERBALIZATION, GIVE CLEAR AND SIMPLE INSTRUCTIONS, PROVIDE TASK-ORIENTED ACTIVITIES, REINFORCE FALL PREVENTION TECHNIQUES, RE-ORIENT TO SURROUNDINGS NEEDED, GIVE MEDICATIONS ORDERED, DECREASE EXTERNAL STIMULI, ENCOURAGE SOCIAL INTERACTION R: PT HAS PLEASANT, COOPERATIVE AFFECT DURING SHIFT. EXHIBITS PERIODS OF RESTLESSNESS, BUT HAS BEEN ABLE TO BE REDIRECTED WITH VERBALIZATION. HAS NOT EXHIBITED THREATENING OR COMBATIVE BEHAVIORS, TAKES MEDICATIONS ORDERED, AND HAS BEEN COOPERATIVE WITH ADLS. CONT TO EXHIBIT VARYING DELUSIONS R/T IMPAIRED COGNITION, FREQUENTLY REACHES DOWN TO FLOOR FOR THINGS NOT THERE. HAS NOT PARTICIPATED IN GROUP ACTIVITIES THIS SHIFT, BUT HAS REMAINED IN DAY ROOM WITH STAFF. INITIATES MINIMAL INTERACTION, BUT DOES RESPOND TO APPROACH. P: RE-ORIENT TO SURROUNDINGS/REALITY NEEDED
[2020-06-09 19:06] VITALS: BP 131/76
[2020-06-09] MEDS: CARDURA PO SCH (20:20)
[2020-06-09] MEDS: LIPITOR PO SCH (20:20)
[2020-06-09] MEDS: SINEQUIN PO SCH (20:21)
--- NOTE | 2020-06-10 04:57 | NUR ---
PIRP- P- ALTERED THOUGHT PROCESS AND FALL RISK I- PROVIDE 1:1 WITH STAFF AT ALL TIMES. PROVIDE MEDICATION ORDERED AND PROVIDED SAFE AND SUPPORTIVE ENVIRONMENT. R- PT. IS A FALL RISK AND HAS UNSTEADY GAIT. WEARING YELLOW NON SKID SOCKS AND BED IN LOW POSITION. CONTINUES TO BE 1:1 WITH STAFF AT ALL TIMES. DENIED DEPRESSION . RESTLESS AT TIMES AND ATTEMPTED TO GET UP WITHOUT ASKING FOR ASSISTANCE. STAFF TIMES TWO WALKED WITH PT. IN THE HALLWAY AT TIMES TONIGHT. ATTENDED GROUP AND PARTICIPATED IN TOSS THE WARD BAGS AT THE [employer]. ATE SNACKS. TOOK MEDICATION ORDERED. AT TIMES PT. TALKED TO PEOPLE NOT THERE AND WOULD PICKUP THINGS OFF THE FLOOR THAT WERE NOT THERE. WAS ASSISTED WITH HS CARE AND TO BED. RESTING IN BED WITH EYES CLOSED AT THIS TIME. P- WILL CONTINUE TO PROVIDE 1:1 INTERVENTION AND ALLOW PT. TO EXPRESS THOUGHTS AND FEELINGS. REDIRECT NEEDED.
[2020-06-10] MEDS: COLACE PO SCH ×2 (08:08→20:18)
[2020-06-10] MEDS: TYLENOL #3 PO PRN ×2 (08:09→19:27)
[2020-06-10] MEDS: AUGMENTIN 875-125 TABLET PO SCH ×2 (08:09→20:20)
[2020-06-10] MEDS: RISPERDAL PO SCH ×3 (08:09→20:19)
[2020-06-10] MEDS: PLAVIX PO SCH (08:09)
[2020-06-10] MEDS: ASPIRIN EC PO SCH (08:09)
[2020-06-10] MEDS: VITAMIN D PO SCH (08:09)
[2020-06-10] MEDS: VITAMIN C PO SCH (08:10)
[2020-06-10 08:20] VITALS: BP 176/89
[2020-06-10] MEDS: COZAAR PO SCH (08:23)
[2020-06-10] MEDS: LOPRESSER PO SCH ×2 (08:23→20:19)
[2020-06-10] MEDS: NYSTOP TP SCH ×2 (09:00→20:21)
--- NOTE | 2020-06-10 12:06 | PRM.PN ---
Mood: pleasant during days today Sleep: 6.75 Appetite: large, frequent rests Suidical thoughts: does not make statements Homicidal thoughts: does not make statemnts Recent stressors: modesty, dementia Family support: , daughters Aggressive Behavior: not today Ability to Perform ADL'sc: modesty, does not understand many of simply directions Psychotic sympstoms: responding to internal Manic Symptoms: less activity, not constant reaching for items Living situation: discharge to snf Illicit Drug usec: na Alcoholo use: na Tobacco use: na Family,PT,Surgical,&Current HX: (1) Delusional disorder (2) Dementia Anxity Symptoms: not present Anger/Irritablility: denies Muscle Strength & Tone: Rigidity Gait & Station: Ataxic Appearance: Well groomed/hygience Attitude & Behaviour: Cooperative/Pleasant Mood & Affect: Blunted Orientation: Disoriented to place, Disoriented to time, Disoriented to situation Attention/Concentration: Poor attention, Poor concentration Speech: Reg rate/vol/rhyth/prosod Judgement/Insight: Poor judgement, Poor insight Thought Process: Circumferential Language: Czech Thought content/Abnormal/Psych: Delusions Fund of Knowledge: WNL Associations: Other Constitutional: None Neurological: None Psychiatric: Psychosis (dementia, does not stay oriented, ) [place] I: dementia, delusional area [place] III: pneumonia, post surgical repaired hip fx [place] IV: discharge to snf Assessment/Plan Assessment/Plan Plan Nursing: More movement yesterday afternoon, restless, reaching for items- no prns needed, would listen to staff direction, allowed to move, up and down in w/c today he is doing better, not as restless, pleasant, not able to follow simple commands modest with cares, mildly resistive with brief changing patient: did you have breakfast? 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 Vital Signs Date Time Temp Pulse Resp B/P (MAP) Pulse Ox O2 Delivery O2 Flow Rate FiO2 06/09/20 11:52 97.4 66 16 151/79 (103) 96 Room Air Allergies Coded Allergies Type Severity Reaction Last Updated Verified No Known Drug Allergies Allergy Unknown 05/14/20 Yes Current Medications Medications (Trade) Dose Ordered Sig/Power PRN Reason Start Time Stop Time Status Last Admin Divalproex Sodium (Depakote Sprinkle) 250 mg HS 06/08/20 21:00 06/28/20 21:00 06/08/20 20:48 Divalproex Sodium (Depakote Sprinkle) 375 mg 1300 06/09/20 13:00 07/09/20 12:59 PSYCHOTROPICS: DOXEPIN 25mg daily at HS DEPAKOTE 250MG at 2100 and 375mg at 1300 ativan PRN NOT USED SINCE 05/31/2020 RISPERDAL 1mg tid ZYPREXA 10MG IM Q6 HOURS PRN PSYCHOSIS last use 06/06/2020 at 2100 FLUOXETINE 20MG DAILY stopped ON 05/27/2020 stopped 05/31/2020 BUSPIRONE 7.5MG TID summary: Will look at the camera today and answers my questions does not stay oriented, 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 Consent was obtained for the presence of staff member throughout encounter. Privacy was maintained throughout encounter PLAN: 1. CONTINUE BEHAVIORAL HEALTH MANAGEMENT. DISCHARGE tomorrow, WHEN APPROVED BY SNF, they were waiting on paperwork needed to snf, (confirmation 06/07/2020 532, covid 19 was not negative) 2. CONTINUE CURRENT MEDICATIONS PRESCRIBED. STAFF AGREEABLE WITH PLAN 3. ALL PATIENT QUESTIONS ANSWERED RELATED TO MEDICATIONS, PLAN OF CARE, AND EXPECTED OUTCOMES. 4. SAFETY PLAN DISCUSSED. LUIS ARMANDO ALTAMIRANO NP Jun 10, 2020 12:06
[2020-06-10] MEDS ORDERED: RISP1TAB45 PO (12:12)
[2020-06-10] MEDS ORDERED: DIVA125C2 PO ×2 (12:12)
[2020-06-10] MEDS ORDERED: DOXE25CA PO (12:12)
[2020-06-10] MEDS: DEPAKOTE SPRINKLE PO SCH ×2 (12:53→20:18)
--- NOTE | 2020-06-10 16:23 | NUR ---
ACCEPTANCE: PT'S IS GOING TO PRIVATE PAY FOR A MONTH WHILE THE SENIOR BUSINESS OBJECTS DEVELOPER WORKS ON THE MEDICAID APPLICATION. RANDALLANGELES STATED "WE CAN PICK PT UP AT 9AM ON 06/11/2020. THAT IS THE ONLY TIME WE WILL HAVE TWO STAFF AVAILABLE TO GO AND GET HIM". SW NOTIFIED Jose Manuel ALTAMIRANO AND Isadora MARTE OF ACCEPTANCE. GOAL IS TO DISCHARGE TO [facility] TOMORROW.
--- NOTE | 2020-06-10 17:05 | NUR ---
PIRP: P: ALTERED THOUGHT PROCESS I: PROVIDE MEDICATIONS ORDERED BY PHYSICIAN. ENCOURAGE ATTENDANCE AND PARTICIPATION OF ALL GROUPS. ALLOW PATIENT TO VOICE FEELINGS AND CONCERNS. PROVIDE SAFE ENVIRONMENT. MONITOR PATIENT FOR PSYCHOTIC SYMPTOMS, DEPRESSION, ANXIETY AND SUICIDAL IDEATION R: PATIENT HAS TAKEN ALL MEDICATIONS ORDERED AND HAS BEEN CALM AND COOPERATIVE. HE HAS BEEN UP MOST OF THE DAY AND HAS ENJOYED LISTENING TO MUSIC AND SOCIALIZING. HE IS CONFUSED AND DISORIENTED, HALLUCINATES AT TIMES. HE HAS WALKED TODAY WITH ASSISTANCE OF STAFF. HE HAS NOT BEEN COMBATIVE AND [facility] WILL PICK HIM UP TOMORROW AT 0900. P: CONTINUE CURRENT PLAN OF CARE.
[2020-06-10 19:11] VITALS: BP 107/72
[2020-06-10] MEDS: CARDURA PO SCH (20:19)
[2020-06-10] MEDS: LIPITOR PO SCH (20:20)
[2020-06-10] MEDS: SINEQUIN PO SCH (20:20)
--- NOTE | 2020-06-11 06:20 | NUR ---
P.I.R.P. P. ALTERATION IN THOUGHT PROCESS I. PROVIDE EVERY 15 MINUTE DOCUMENTATION, 1:1 OBSERVATION FOR SAFETY. PROVIDE MEDICATIONS ORDERED PER MD, PROVIDE TASK ORIENTED GROUP ACTIVITY, REDIRECT AND RE ORIENT NEEDED. PROVIDE 1:1 INTERVENTION TO ALLOW PATIENT TO EXPRESS FEELINGS. R. PATIENT HAD NO AGGRESSIVE BEHAVIORS THIS SHIFT, WAS RESTLESS AT TIMES WORKING ON ITEMS, EASILY REDIRECTED. NO PRN PSYCH MEDS THIS SHIFT, DID GIVE PRN TYLENOL 3 FOR PAIN X 1 . PATIENT RAMBLES AT TIMES AND DID HAVE AUDITORY AND VISUAL HALLUCINATIONS BUT WAS PLEASANT. P. CONTINUE CURRENT PLAN OF CARE.
[2020-06-11] MEDS: NYSTOP TP SCH (07:56)
[2020-06-11] MEDS: COLACE PO SCH ×2 (07:56→08:47)
[2020-06-11] MEDS: TYLENOL #3 PO PRN (07:56)
[2020-06-11] MEDS: PLAVIX PO SCH (07:57)
[2020-06-11] MEDS: RISPERDAL PO SCH (07:57)
[2020-06-11] MEDS: VITAMIN C PO SCH (07:57)
[2020-06-11] MEDS: AUGMENTIN 875-125 TABLET PO SCH (07:57)
[2020-06-11] MEDS: LOPRESSER PO SCH (07:57)
[2020-06-11] MEDS: ASPIRIN EC PO SCH (07:57)
[2020-06-11] MEDS: VITAMIN D PO SCH (07:57)
[2020-06-11] MEDS: COZAAR PO SCH (07:58)
[2020-06-11 07:59] VITALS: BP 130/57
[2020-06-11] MEDS ORDERED: AUGMENTIN 875-125 TABLET ONE (09:30)
[2020-06-11 11:49] VITALS: BP 130/57
--- NOTE | 2020-06-11 12:03 | NUR ---
discharge Patient discharged at 0945. local company truck driver risk control field representative from [facility] arrived to hospital entrance. Patient left unit in a wheelchair assisted by 2 nursing staff members. Patient's belongings entrusted to [facility]. This RN called report to Laura WAGNER at 1030. chart sent with [facility]. Med list Faxed to [facility], Hospitalist Consult report, Labs, and Progress notes from the last week sent in DC packet to receiving facility.
--- NOTE | 2020-06-12 10:43 | PRM.DC ---
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 Pt was previously living with , reportedly these behaviors are new; he was having falls at home, which led to hip fracture, which is why he was at rehab facility. Patient was initiated on psychiatric medications and he was behaviorally managed on the BHU, with improvement while he was inpatient. With the participation of his family, SW assisted with arrangements for a SNF to which the patient was discharged. Exam Vital Signs Vital Signs Date Time Temp Pulse Resp B/P (MAP) Pulse Ox O2 Delivery O2 Flow Rate FiO2 06/11/20 11:49 72 14 97 Room Air 06/11/20 07:59 98.5 130/57 (81) Psych/Mental Status: Other (see TALENT ACQUISITION ASSISTANT MSE) VTE VTE Risk Total Score: >5 VTE Risk Score VTE Risk: Score 0-1 = Low Risk (Aggressive mobilization; early ambulation; no VTE prophylaxis required) Score 2: Moderate Risk (Intermittent/Pneumatic Compression Device OR Lovenox/Heparin/Coumadin) Score 3-4: High Risk (Intermittent/Pneumatic Compression Device AND Lovenox/Heparin/Coumadin) Score > or =5: Highest Risk (Intermittent/Pneumatic Compression Device AND Lovenox/Heparin/Coumadin) Reasons not ordering prophylax: Bld coag d/t liver dz Objective Vitals and I/O Vital Sign - Last 24 Hours 06/11/20 11:49 Pulse 72 Resp 14 Pulse Ox 97 O2 Delivery Room Air Psych/Mental Status: Other (see TALENT ACQUISITION ASSISTANT MSE) All Results(Lab/Rad) Current Medications Medications (Trade) Dose Ordered Sig/Power Route PRN Reason Start Time Stop Time Status Last Admin Dose Admin Olanzapine (Zyprexa Zydis) 5 mg STK-MED ONCE .ROUTE 05/14/20 16:29 05/14/20 16:32 DC Olanzapine (Zyprexa Zydis) 10 mg Q6HR PRN SL psychosis and restlessness 05/14/20 17:00 06/11/20 12:15 DC 06/06/20 21:12 Acetaminophen/ Codeine Phosphate (Tylenol #3) 1 each BID PRN PO PAIN 7 - 05/14/20 18:00 06/11/20 12:15 DC 06/11/20 07:56 Amlodipine Besylate (Norvasc) 5 mg DAILY24 PO 05/14/20 18:00 05/14/20 18:41 DC Aspirin (Aspirin Ec) 81 mg DAILY24 PO 05/14/20 18:00 05/14/20 18:41 DC Atorvastatin Calcium (Lipitor) 10 mg HS PO 05/14/20 21:00 06/11/20 12:15 DC 06/10/20 20:20 Clopidogrel Bisulfate (Plavix) 75 mg DAILY PO 05/15/20 09:00 06/11/20 12:15 DC 06/11/20 07:57 Docusate Sodium (Colace) 100 mg BID PO 05/14/20 21:00 05/26/20 07:45 DC 05/25/20 20:20 Doxazosin Mesylate (Cardura) 1 mg HS PO 05/14/20 21:00 06/11/20 12:15 DC 06/10/20 20:19 Fluoxetine HCl (Prozac) 20 mg DAILY PO 05/15/20 09:00 05/27/20 09:54 DC 05/27/20 08:18 Losartan Potassium (Cozaar) 100 mg DAILY PO 05/15/20 09:00 06/11/20 12:15 DC 06/11/20 07:58 Metoprolol Tartrate (Lopresser) 25 mg BID PO 05/14/20 21:00 06/11/20 12:15 DC 06/11/20 07:57 Quetiapine Fumarate (Seroquel) 100 mg HS PO 05/14/20 21:00 05/15/20 10:50 DC 05/14/20 20:26 Ascorbic Acid (Vitamin C) 500 mg DAILY PO 05/15/20 09:00 06/11/20 12:15 DC 06/11/20 07:57 Buspirone HCl (Buspar) 7.5 mg TID PO 05/14/20 21:00 05/31/20 17:41 DC 05/31/20 14:20 Cholecalciferol (Vitamin D) 5,000 unit DAILY@0900 PO 05/15/20 09:00 06/11/20 12:15 DC 06/11/20 07:57 Doxycycline Hyclate (Vibramycin) 100 mg DAILY@0900 PO 05/15/20 09:00 05/29/20 22:06 DC 05/29/20 09:04 Lactulose (Cephulac) 30 gm DAILY PRN PO CONSTIPATION 05/15/20 09:00 06/11/20 12:15 DC 06/05/20 08:08 Olanzapine (Zyprexa) 10 mg Q6 PRN IM psychosis and restlessness 05/14/20 18:30 06/11/20 12:15 DC 05/29/20 15:03 Amlodipine Besylate (Norvasc) 5 mg DAILY@0900 PO 05/15/20 09:00 05/15/20 16:59 DC 05/15/20 10:14 Aspirin (Aspirin Ec) 81 mg DAILY@0900 PO 05/15/20 09:00 06/11/20 12:15 DC 06/11/20 07:57 Doxazosin Mesylate (Cardura) 2 mg STK-MED ONCE .ROUTE 05/14/20 20:11 05/14/20 20:14 DC Olanzapine (Zyprexa Zydis) 10 mg HS SL 05/15/20 21:00 05/21/20 11:49 DC 05/20/20 20:28 Amlodipine Besylate (Norvasc) 10 mg DAILY@0900 PO 05/16/20 09:00 06/04/20 14:46 DC 06/03/20 09:39 Doxazosin Mesylate (Cardura) 2 mg STK-MED ONCE .ROUTE 05/15/20 20:01 05/15/20 20:03 DC Doxazosin Mesylate (Cardura) 2 mg STK-MED ONCE .ROUTE 05/17/20 19:29 05/17/20 19:31 DC Olanzapine (Zyprexa Zydis) 5 mg AM SL 05/19/20 09:00 05/20/20 07:15 DC Olanzapine (Zyprexa Zydis) 5 mg AM SL 05/20/20 09:00 05/20/20 09:37 DC 05/20/20 08:49 Olanzapine (Zyprexa Zydis) 5 mg 0900,1500 SL 05/20/20 15:00 05/21/20 11:49 DC 05/21/20 08:50 Doxazosin Mesylate (Cardura) 2 mg STK-MED ONCE .ROUTE 05/20/20 20:22 05/20/20 20:24 DC Risperidone (Risperdal) 1 mg HS PO 05/21/20 21:00 05/23/20 09:42 DC 05/22/20 20:35 Risperidone (Risperdal) 0.5 mg DAILY PO 05/22/20 09:00 05/23/20 09:42 DC 05/23/20 08:50 Haloperidol Lactate (Haldol) 10 mg OT ONCE IM 05/21/20 20:30 05/22/20 06:19 DC Doxazosin Mesylate (Cardura) 2 mg STK-MED ONCE .ROUTE 05/21/20 20:50 05/21/20 20:52 DC Doxepin HCl (Sinequin) 10 mg HS PO 05/21/20 21:00 06/03/20 16:09 DC 06/02/20 20:23 Doxazosin Mesylate (Cardura) 2 mg STK-MED ONCE .ROUTE 05/22/20 19:14 05/22/20 19:16 DC Risperidone (Risperdal) 2 mg HS PO 05/23/20 21:00 05/30/20 15:52 DC 05/29/20 20:37 Risperidone (Risperdal) 1 mg DAILY PO 05/24/20 09:00 05/26/20 13:41 DC 05/26/20 09:00 Sterile Water 20 ml @ ud STK-MED ONCE .ROUTE 05/23/20 14:09 05/23/20 14:11 DC Docusate Sodium (Colace) 100 mg BID PO 05/26/20 09:00 06/11/20 12:15 DC 06/10/20 20:18 Risperidone (Risperdal) 1 mg 0900,1500 PO 05/26/20 15:00 05/30/20 15:52 DC 05/30/20 14:49 Sterile Water 20 ml @ ud STK-MED ONCE .ROUTE 05/29/20 14:59 05/29/20 15:02 DC Risperidone (Risperdal) 2 mg 1500,2100 PO 05/30/20 21:00 06/02/20 13:59 DC 06/01/20 20:35 Risperidone (Risperdal) 1 mg DAILY PO 05/31/20 09:00 06/02/20 13:59 DC 06/01/20 10:26 Risperidone (Risperdal) 1 mg OT ONCE PO 05/30/20 16:00 05/30/20 16:05 DC 05/30/20 15:56 Lorazepam (Ativan) 2 mg STK-MED ONCE .ROUTE 05/31/20 17:29 05/31/20 17:31 DC Divalproex Sodium (Depakote Sprinkle) 250 mg BID PO 06/01/20 09:00 06/01/20 14:21 DC 06/01/20 10:26 Lorazepam (Ativan) 1 mg Q6HR PRN IM ANXIETY 05/31/20 18:00 06/11/20 12:15 DC 05/31/20 17:30 Divalproex Sodium (Depakote Sprinkle) 250 mg 0900,1500 PO 06/01/20 15:00 06/02/20 13:59 DC 06/01/20 14:47 Divalproex Sodium (Depakote Sprinkle) 250 mg 1300,2100 PO 06/02/20 14:00 06/08/20 14:14 DC 06/08/20 12:31 Risperidone (Risperdal) 1 mg TID PO 06/02/20 14:00 06/11/20 12:15 DC 06/11/20 07:57 Doxepin HCl (Sinequin) 25 mg HS PO 06/03/20 21:00 06/11/20 12:15 DC 06/10/20 20:20 Doxepin HCl (Sinequin) 25 mg STK-MED ONCE .ROUTE 06/03/20 20:18 06/03/20 20:20 DC Amoxicillin/ Clavulanate Potassium (Augmentin 875-125 Tablet) 1 each BID PO 06/04/20 21:00 06/11/20 12:15 DC 06/11/20 07:57 Nystatin (Nystop) 1 gm BID TP 06/06/20 09:30 06/11/20 12:15 DC 06/11/20 07:56 Divalproex Sodium (Depakote Sprinkle) 125 mg 1300 PO 06/07/20 17:00 06/08/20 14:14 DC 06/08/20 12:31 Divalproex Sodium (Depakote Sprinkle) 250 mg HS PO 06/08/20 21:00 06/11/20 12:15 DC 06/10/20 20:18 Divalproex Sodium (Depakote Sprinkle) 375 mg 1300 PO 06/09/20 13:00 06/11/20 12:15 DC 06/10/20 12:53 Amoxicillin/ Clavulanate Potassium (Augmentin 875-125 Tablet) 14 each STK-MED ONCE .ROUTE 06/11/20 09:30 06/11/20 09:30 DC Medication Reconciliation Scheduled Amlodipine Besylate (Amlodipine Besylate), 5 MG PO DAILY24, (Reported) Ascorbic Acid (Vitamin C), 4 CAP PO QD, (Reported) Aspirin (Aspir 81), 81 MG PO DAILY24, (Reported) Atorvastatin 10MG (Lipitor 10MG), 1 TAB PO HS, (Reported) Cholecalciferol (Vitamin D3) (Vitamin D3), 5,000 TAB-CAP PO DAILY@0900, (Reported) Clopidogrel Bisulfate (Clopidogrel), 1 TAB PO DAILY, (Reported) Divalproex Sodium (Depakote Sprinkle), 375 MG PO 1300 Divalproex Sodium (Depakote Sprinkle), 250 MG PO HS Docusate Sodium (Colace), 1 CAP PO BID, (Reported) Doxazosin Mesylate (Doxazosin Mesylate), 1 MG PO HS, (Reported) Doxepin Hcl (Doxepin Hcl), 10 MG PO HS Doxepin Hcl (Doxepin Hcl), 25 MG PO HS Losartan Potassium (Losartan Potassium), 1 TAB PO DAILY, (Reported) Metoprolol Tartrate 25MG (Lopresser 25MG), 25 MG PO BID, (Reported) Risperidone (Risperdal), 1 MG PO DAILY Risperidone (Risperdal), 2 MG PO 1500,2100 Risperidone (Risperdal), 1 MG PO TID Ubidecarenone (Co Q-10), 100 MG PO daily@0900, (Reported) Scheduled PRN Acetaminophen With Codeine (Tylenol With Codeine #3 Tablet), 1 EACH PO every 12 hours PRN for PAIN 7 - 10, (Reported) Lactulose (Lactulose), 30 MILLILITER PO AM PRN for CONSTIPATION, (Reported) Olanzapine (Zyprexa Zydis), 10 MG SL DAILY24 PRN for psychosis and restlessness Discontinued Medications Buspirone Hcl (Buspirone Hcl), 7.5 MG PO TID, (Reported) Discontinued Reason: No Longer Taking Plan Assessment 75 yo M, hx of Delusional Disorder, BAMBI, neurocognitive disorder, admitted to [facility] for worsening mood/behaviors/delusions. Patient with improvement during duration of hospitalization -- showed improvement to medications and behavioral management. With participation of family, arrangements made for d/c to SNF. [place] I: Delusional disorder Neurocognitive disorder Plan 1) D/C orders placed by TALENT ACQUISITION ASSISTANT 2) Patient to be discharged to SNF 3) Patient is NOT an imminent risk of harming himself or others at this time 4) Patient does NOT desire continued voluntary hospitalization at this time 5) Patient does NOT meet criteria for involuntary hospitalization at this time 6) ER warnings for worsening symptoms, or any other patient concern MALLIKA JONES MD Jun 12, 2020 10:43
== END 2020-06-11 09:45 | DRG 56 ==
LOC: ER 11:41 → EEVIPCON 13:34 → GP 13:34 → EDPENDDISTM 06-11 09:45
PROVIDERS: ADMIT Psychiatry & Neurology Psychiatry; ATTEND Psychiatry & Neurology Psychiatry
DX: G30.9 Alzheimer's disease, unspecified (principal); J18.9 Pneumonia, unspecified organism; F02.81 Dementia in other diseases classified elsewhere, unspecified severity, with behavioral disturbance; F22 Delusional disorders; E78.5 Hyperlipidemia, unspecified; I25.10 Atherosclerotic heart disease of native coronary artery without angina pectoris; I10 Essential (primary) hypertension; R94.4 Abnormal results of kidney function studies; R60.0 Localized edema; F41.1 Generalized anxiety disorder; L71.9 Rosacea, unspecified; Z91.81 History of falling; Z79.899 Other long term (current) drug therapy; Z79.02 Long term (current) use of antithrombotics/antiplatelets; Z79.82 Long term (current) use of aspirin
CPT/HCPCS: 36415; 70450; 71045; 80048; 80053; 80061; 80164; 80299; 80307; 80320; 81002; 82306; 82550; 82553; 83036; 83880; 84443; 84484; 85025; 85027; 86592; 93005; 93970; 97150; 97163; 97165; 97530; 99285; G0378; J2060; J3490; 97116-GP; 97168-GO; 97535-GO; A4216